=== PATIENT | male | born 1980 | race Caucasian/White ===

== ENCOUNTER 2018-03-16 21:34 | Emergency (ER) | payer MEDICAID, SELFPAY ==
[2018-03-16 21:42] VITALS: BP 139/95; PULSE 85; RESP 20; TEMP 36.5; O2SAT 98
[2018-03-16] MEDS: Tetracaine 0.5% 4 ML BTL OP (21:47)
--- NOTE | 2018-03-16 21:50 | ED.GENADUL ---
Disposition Clinical Impression: UV keratitis Disposition: HOME Condition: Stable Instructions: Corneal Flash Gregorio (ED) Additional Instructions: if pain continues next week see your primary care provider you can take tylenol as needed for pain, follow dosing instructions on packaging Medical Decision Making - Medical Decision Making pt here with hx and physical exam findings consistent with uv keratitis. NO findings on exam to suggest orbital cellulitis and pain is bilateral and had immediate relief of pain with tetracaine so doubt entities such as glaucoma and tonopen reading is 10 in each eye. Will d/c home and return precautions given. HIs eye vision in each eye on my exam is 20/40 - Differential Diagnosis uv keratitis, conjunctivitis History of Present Illness - General Chief complaint: EyeProblem Stated complaint: EYE INJURY Time Seen by Provider: 03/16/18 21:43 Source: patient Mode of arrival: ambulatory Limitations: no limitations - History of Present Illness Initial comments: 37 yo male comes in with bilateral eye pain. 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 Has mild erythema and edema around the eyes and has tearing and discomfort. EOMI, PERRL, and has immediate relief of pain with tetracaine Complaint: bilateral eye pain Onset/Timin -: hour(s) Location: eyes Radiation: non-radiation Severity scale (1-10): 10 Quality: burning Consistency: constant Improves with: none Worsens with: none Associated Symptoms: nausea/vomiting Treatments Prior to Arrival: none - Related Data Methylphenidate [Ritalin] 20 mg PO BID 05/08/14 Ibuprofen 600 mg PO QID PRN #20 tablet 03/12/18 Allergies Allergy/AdvReac Type Severity Reaction Status Date / Time codeine Allergy Severe tongue Unverified 03/16/18 21:44 swelling ibuprofen AdvReac Mild stomach Unverified 03/16/18 21:44 upset paroxetine HCl [From Paxil] AdvReac Mild works Unverified 03/16/18 21:44 like viagra Review of Systems Constitutional: denies: fever Eyes: eye pain. denies: eye discharge Respiratory: denies: shortness of breath Cardiovascular: denies: chest pain Skin: denies: rash Neurological: denies: headache Hematological/Lymphatic: denies: easy bleeding Comment: All other systems reviewed and negative Past Medical History - Past Medical History Medical history: seizures ADHD, back pain Surgical history: other (Shoulder surgery) - Social History Alcohol use: occasionally Drug use: marijuana General Exam - General Limitations: no limitations General appearance: alert, in no apparent distress - Head Head exam: Present: atraumatic - Eye Eye exam: Present: PERRL, EOMI, other (see hpi) Pupils: Present: normal accommodation - ENT ENT exam: Present: mucous membranes moist - Neck Neck exam: Present: normal inspection - Respiratory Respiratory exam: Absent: respiratory distress - Cardiovascular Cardiovascular Exam: Present: regular rate - Extremities Exam Extremities exam: Present: normal inspection - Neurological Exam Neurological exam: Present: alert, oriented X3 - Psychiatric Psychiatric exam: Present: anxious - Skin Skin exam: Present: warm Course Vital Signs - 24 hr //18 21:42 Temperature 97.7 F Pulse 85 Respiratory 20 Rate Blood Pressure 139/95 Pulse Oximetry 98
[2018-03-17 06:34] VITALS: BP 139/95; PULSE 85; RESP 20; TEMP 36.5; O2SAT 98
== END 2018-03-16 22:24 | disposition home or self-care (01) ==
LOC: ER 06-24 18:17
PROVIDERS: Emergency Provider Emergency Medicine; PCP Family Medicine
DX: H16.8 Other keratitis (principal)
CPT/HCPCS: 99283

== ENCOUNTER 2018-06-24 17:57 | Emergency (ER) | payer MEDICAID, SELFPAY ==
[2018-06-24] VITALS (12 sets, daily range): BP systolic 122–132; BP diastolic 82–88; PULSE 71–88; RESP 13–25; TEMP 36.7; O2SAT 93–97
--- NOTE | 2018-06-24 18:10 | DI.CT_ITS ---
SYMPTOM/DIAGNOSIS: SYNCOPE CT BRAIN: Noncontrast examination was performed. Comparison 02/18/17 There is a normal cárdenas/white matter differentiation. The ventricles are intact. The basilar cisterns are patent. No acute infarct, hemorrhage, midline shift or mass effect is identified. There is mucosal thickening seen in the maxillary sinuses. Ethmoid air cells and sphenoid sinuses bilaterally. The mastoid air cells are well pneumatized. The calvarium is intact. IMPRESSION: No acute intracranial process
--- NOTE | 2018-06-24 18:10 | DI.CT_ITS ---
SYMPTOM/DIAGNOSIS: COUGH, CP, VOMITING, SYNCOPE CTA CHEST, ABDOMEN AND PELVIS: CT angiography was performed with multi slice acquisition and multi planar and 3D reconstruction. Routine examination was performed. CTA CHEST: CT angiography was performed with multi slice acquisition and multi planar and 3D reconstruction. There is no evidence of a pulmonary embolus. The thoracic aorta is of normal caliber. No evidence of dissection or aneurysm. Heart size is within normal limits. No significant pericardial effusion is seen. No findings to suggest right ventricular dysfunction are present. There are enlarged mediastinal and hilar lymph nodes. These are nonspecific. The largest lymph node is seen in the subcarinal region and measures 1.7 cm in diameter. No pleural effusion or pneumothorax is identified. There is bilateral basilar atelectasis present. There also appears to be an infiltrate in the right lower lobe. IMPRESSION: 1. No evidence of a pulmonary embolus, thoracic aortic aneurysm or dissection. 2. Right lower lobe infiltrate. This may represent pneumonia or atelectasis 3. Mediastinal adenopathy CTA ABDOMEN AND PELVIS: CT angiography was performed with multi slice acquisition and multi planar and 3D reconstruction. The liver, spleen, pancreas, gallbladder, bile ducts, adrenal glands, kidneys, ureters and bladder are all unremarkable. The reproductive organs are grossly unremarkable. The bowel shows no evidence of obstruction or inflammation. There is a normal appendix present. There is no significant abdominal or pelvic adenopathy, ascites or pneumoperitoneum. The abdominal aorta is intact without evidence of aneurysm or dissection. The celiac axis, mesenteric arteries and renal arteries are all unremarkable. The bones area intact. IMPRESSION: Unremarkable abdominal and pelvic CT angiography.
--- NOTE | 2018-06-24 18:10 | W.ED.GENAD ---
Discharge Plan Disposition Patient Disposition: HOME Condition: Good Discharge Details Chief Complaint: Nausea/Vomit/Diar Clinical Impression: Cough, Pneumonia, Dehydration, Post-tussive syncope Primary Care Provider: APOLINAR BOLAND ED Provider: Miguel Angel Lew Home Meds and New Rx's Prescriptions: New azithromycin 250 mg tablet 250 mg PO DAILY 4 Days Qty: 4 RF: 0 prednisone 50 MG tablet 50 mg PO DAILY Qty: 5 RF: 0 albuterol sulfate 90 mcg/actuation HFA aerosol inhaler 1 puff IH Q6H PRN (Reason: bronchospasm) Qty: 8 RF: 0 No Action methylphenidate HCl [Ritalin] 20 MG tablet 20 mg PO BID RF: 0 ibuprofen 600 MG tablet 600 mg PO QID PRN (Reason: Pain) Qty: 20 RF: 0 Discharge Instructions Instructions: Dehydration (ED), Pneumonia (ED) Additional Instructions: Please drink 8-10 cups of water per day. Please take the antibiotic as directed. Please take the steroid and the inhaler as directed. If you notice any worsening of your symptoms, or any new symptoms such as vomiting, diarrhea, fever, chills, shortness of breath, chest pain, numbness, weakness, or fainting , please return immediately to the emergency department for reevaluation. Please follow up with your primary care provider as soon as possible for reassessment and reevaluation. As always, it was a pleasure participating in your medical care today. Stand Alone Forms: Work Release Referrals: APOLINAR BOLAND [Primary Care Provider] - Medical Decision Making This is a 38-year-old male who looks older than his stated age who presents today for evaluation of syncope, cough vomiting. Cough is been going on for a month and a half, with no hemoptysis. No PE red flags. His vomiting is been going on for the last 2 days, with mild epigastric pain, no hematemesis. Physical exam demonstrates epigastric pain, no pain at McBurney's point, negative Andrea sign. He also complains of syncope which occurred 20 minutes ago during a coughing episode. He does admit to mild chest pressure, but denies any actual chest pain, arm pain or neck pain. He denies any exertional chest pain. 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 Physical exam demonstrates 5 out of 5 strength of the lower extremities, +2 patellar reflexes normal sensation normal neurologic exam, no signs of saddle anesthesia. Lung exam demonstrates some crackles as well as a wheeze, in conjunction with his history of smoking and tobacco use and concern for potential component of reactive airway versus pneumonia. The patient's neurologic exam is normal with no focal neurologic deficits. We will get a CT scan of the head, chest CT and abdominal CT to evaluate for any potential malignancy, mass, pneumonia, or acute abdominal pathology. We will perform a cardiac workup, although I feel this is unlikely as the patient has no history of hypertension, diabetes, high cholesterol, is 38 years old, and demonstrates very reassuring vital signs. Rate 83, intervals normal, sinus rhythm, no ST elevations or depressions, no T wave inversions except for in lead III, no Q waves. No epsilon wave, delta wave, or signs of prolonged QT syndrome. EKG 21: 08 Rate 75, intervals normal, sinus rhythm, no ST elevations or depressions, no T wave inversions except for lead III which is consistent with prior EKGs. No Q waves. No hyper acute T wave changes. No evidence of epsilon wave, delta wave, or other significant abnormality. 7:[address] scan demonstrates evidence of right-sided pneumonia/pneumonitis/alveolitis. With the patient's symptoms of cough with productivity and no signs of eosinophilia on laboratory workup I do feel that there might be an infectious etiology as the cause of his symptoms. He denies any history of talc exposure, coal mining, or significant toxic inhalants. We will start the patient on azithromycin. The remainder of the patient's laboratory workup is benign, no significant electrolyte abnormalities, renal function abnormalities or other acute processes. Lipase is normal. Troponin is normal. We will get serial troponins and a repeat EKG at 3 hours. The patient's vital signs continue to remain stable. After he received his breathing treatment of DuoNeb the patient had notable improvement of his symptoms and his cough. I feel that the patient would benefit from home albuterol as well as steroids as well. I do feel that there is a reactive airway component with his chronic tobacco and marijuana use. I did reassess the patient, and again discussed the symptoms of his initial syncope, and he states that it all occurred after he had a significant coughing episode and with his negative CT of his head, no other acute processes on his CT imaging, normal EKG and benign laboratory workup I feel his syncope was most likely secondary to a posttussive syncope rather than another concerning etiology 9:34 PM Patient continues to feel very well. He states that he would like to go home now. He states that he feels back at his baseline. Repeat lung exam demonstrates absence of wheeze, and improved breath sounds. He has been given his first dose of azithromycin here. Repeat troponin, and EKGs have returned benign. With normal vital signs, reassuring clinical picture, benign laboratory workup, negative imaging, I feel that he can be safely discharged home with close follow-up with his PCP, continued hydration. We discussed red flags which to return. Diagnosis pneumonia, posttussive syncope, dehydration. I have extensively reviewed the treatment plan and discharge instructions with the patient and their family. I have addressed all patient concerns at this time. The patient and family was made aware of what symptoms to monitor for that would warrant a return to the emergency department. Discussed the plan with the patient and family, they demonstrate verbal understanding and agreement with our assessment and plan at this time. FINDINGS: No. Aorta unremarkable. Mild basilar atelectasis. Additional probably s or pneumonitis at the right lung base new from the prior exam. No pleural effusions. Minimal mediastinal adenopathy with no significantly enlarged nodes. IMPRESSION: Right lower lobe pneumonitis or alveolitis. FINDINGS: Abdominal aorta and iliac vessels unremarkable. Appendix is normal. No focal inflammatory process. No free fluid. No evidence of bowel obstruction. Bony structures unremarkable for age. IMPRESSION: Relatively unremarkable exam with no specific etiology identified for the patient's symptoms. Findings: No evidence of hemorrhage. No mass effect. No acute intracranial abnormality. Mild chronic maxillary and ethmoidal sinus disease. No air-fluid levels. Impression: No evidence of acute intracranial process. HPI General Date/Time Provider Initiated Documentation: 06/24/18 17:57. HPI Narrative: This is a 38-year-old male who denies any significant past medical history who presents today for evaluation of multiple symptoms. Patient states that he has had a cough for the last 1-1/2 months, with productive white sputum. He has associated pain with his cough, as well as the sensation of some heaviness on his chest when he coughs. Patient also states that for the last 2 days he has been vomiting, he denies any bilious vomiting or hematemesis. He admits to generalized epigastric pain, he denies any significant regular alcohol intake, he denies any aggravating or relieving components to his epigastric pain and vomiting. He denies any previous symptoms like this. He denies any previous abdominal surgeries. Patient also states that he passed out 20 minutes ago. He states that he was having coughing episode, during which time his legs felt weak, sat down and syncopized. He denies hitting his head. He is not on blood thinners. He states that he does have a history of seizures long ago, and is very clear that this was not a seizure, because it does not have any other symptoms of my seizures. He denies any tonic-clonic movements or any of his classic auras that occur when he has a seizures. Patient denies any recent episodes of syncope aside for this. Patient also admits to chronic weakness and inability to move over the last month, however at the same time he states that he has been actively doing his normal job of [employer] over the last 3 weeks, including this most recent week within the last 48 hours. Patient denies any history of exertional syncope, or any family history of sudden . He denies any systemic symptoms of fever, or chills. Patient denies any exertional chest pain when he was [employer]. Patient denies any pertinent family history. He denies any other complaints at this time. Patient does admit to regular tobacco marijuana use, but denies any IV, illicit drug use, cocaine use. Related Data Home Medications Medication Instructions Recorded Confirmed methylphenidate HCl [Ritalin] 20 mg PO BID 05/08/14 03/16/18 ibuprofen 600 mg PO QID PRN #20 tablet 03/12/18 03/16/18 albuterol sulfate 1 puff IH Q6H PRN #8 gm 06/24/18 azithromycin 250 mg PO DAILY 4 Days #4 tab 06/24/18 prednisone 50 mg PO DAILY #5 tab 06/24/18 Previous Rx's Medication Instructions Recorded ibuprofen 600 mg PO QID PRN #20 tablet 03/12/18 albuterol sulfate 1 puff IH Q6H PRN #8 gm 06/24/18 azithromycin 250 mg PO DAILY 4 Days #4 tab 11/11/18 prednisone 50 mg PO DAILY #5 tab 06/24/18 Allergies Allergy/AdvReac Type Severity Reaction Status Date / Time codeine Allergy Severe tongue Unverified 03/16/18 21:44 swelling ibuprofen AdvReac Mild stomach Unverified 03/16/18 21:44 upset paroxetine HCl [From Paxil] AdvReac Mild works Unverified 03/16/18 21:44 like viagra General Stated Complaint: Nausea/Vomit/Diar VALENTINO: 3 Review of Systems Review of Systems All systems reviewed & are unremarkable except as noted in HPI and below PFSH Social History Smoking/Tobacco Use Status: Current every day Exam Narrative Exam Narrative: 1.Const: Well-nourished, Well-developed, appearing stated age 2.Eyes: PERRL, no conjunctival injection, and symmetrical lids. 3.ENT: Atraumatic external nose and ears. Moist MM. Neck: Symmetric, trachea midline, No thyromegaly. Patient demonstrates good movement of cervical neck. There is no nuchal rigidity, no nuchal tenderness. Patient is able to flex the neck without any difficulty or significant pain. Negative Kernig's and Brudzinski sign. 4.CVS: +S1/S2, No murmurs or gallops. Peripheral pulses 2+ and equal in all extremities. Brisk capillary refill in all extremities. 5.RESP: Patient demonstrates crackles throughout, minimal wheezes. No rhonchi. 6.GI: Soft, no guarding or rebound, no distention. Mild tenderness in the upper epigastric region. No pain at McBurney's point, negative Andrea sign 7.MSK: Normocephalic/Atraumatic, Extremities w/o deformity or ttp No cyanosis or clubbing, Normal movement of all extremities. 5 out of 5 strength for the upper extremities. All 6 cardinal planes of vision are fully intact. No evidence of rotatory or vertical nystagmus. The patient demonstrated a normal [id number], good dexterity. There was no evidence of dysdiadochokinesia. Patient was able to ambulate without difficulty. There was no wide-based gait. Romberg, and [id number]-[id number] are both normal on testing. Sensation was intact bilaterally as well as muscle strength bilaterally for all extremities. Patient was able to verbalize butter cup with no slurring, or miss pronunciation. No midline tenderness to palpation over the CTLS spine. Normal ROM in flexion, extension, side bend, and rotation. Patient has +5 out of 5 strength in the lower extremities in dorsiflexion and plantarflexion, knee flexion and extension, hip flexion and extension. There is +2 over 2 dorsalis pedis pulses bilaterally. There is normal sensation to the skin with light touch at the foot, knee, and hip. Normal saddle sensation. Good sensation over the deep sural nerve area bilaterally. Rectal exam deferred. Reflexes are +2 over 4 in the patellar reflex bilaterally. +5 out of 5 strength in the medial, ulnar, radial nerve distribution bilaterally in the hands as well as intact light touch sensation to these dermatomes on the hands 8.Skin: Warm, Dry. No rashes or lesions. 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 Sensation grossly intact, no focal neurologic deficits. Please see musculoskeletal section 10.Psych: (AAO) x3. Appropriate mood and affect Course Vital Signs Temperature 36.7 C 06/24/18 17:59 Pulse 74 06/24/18 17:59 Respiratory Rate 22 06/24/18 17:59 Blood Pressure 132/88 06/24/18 17:59 Temperature 36.7 C 06/24/18 17:59 Temperature Source Skin 06/24/18 17:59 Pulse 74 06/24/18 17:59 Respiratory Rate 22 06/24/18 17:59 Blood Pressure 132/88 06/24/18 17:59 Blood Pressure Position Supine 06/24/18 17:59 Oxygen Delivery Method Room Air 06/24/18 17:59 Oxygen Flow Rate 0 06/24/18 17:59
[2018-06-24] MEDS: Normal Saline 1,000 ML 1000 ML IV (18:18)
[2018-06-24] MEDS: Ondansetron 4 MG/2 ML VIAL IVP (18:24)
[2018-06-24 18:36] LABS: ALT 29 U/L (12-78); AST 20 U/L (15-37); Albumin 3.4 g/dL (3.4-5.0); Alkaline Phosphatase 56 U/L (46-116); Anion Gap 10.8 mmol/L (3-11); BUN 15 mg/dL (7-18); Bilirubin, Total 0.5 mg/dL (0.2-1.0); CO2 25.2 mmol/L (21.0-32.0); CREATININE 0.94 mg/dL (0.70-1.30); Chloride 103 mmol/L (98-107); Glucose 88 mg/dL (70-100); Lipase 139 U/L (73-393); Potassium 3.6 mmol/L (3.5-5.1); Sodium 139 mmol/L (136-145); Total Protein 6.7 g/dL (6.4-8.2)
[2018-06-24 18:37] LABS: Abs Immature Grans 0.05 k/cumm (0.0-0.09); Absolute Basophil Count 0.02 k/cumm (0.0-0.2); Absolute Eosinophil Count 0.17 k/cumm (0.0-0.7); Absolute Lymphocyte Count 2.97 k/cumm (1.2-3.4); Absolute Monocyte Count 0.75 k/cumm (0.11-0.7); Absolute Neutrophil Count 5.28 k/cumm (1.2-6.7); Basophils % 0.2; Eosinophils % 1.8; HGB 15.1 g/dL (13.5-17.5); Immature Grans % 0.5; Lymphocytes % 32.1; Mean Corp. HGB Concentration 35.1 g/dL (32.0-36.0); Mean Corpuscular Hemoglobin 31.5 pg (27.0-33.0); Mean Corpuscular Volume 89.8 fL (80-95); Mean Platelet Volume 8.7 fL (8.0-11.0); Monocytes % 8.1; Neutrophils % 57.3; Platelet Count 286 x1000/uL (130-400); RBC 4.79 m/cumm (4.50-6.00); RBC Distribution Width 13.4 % (11.8-14.1); Troponin I < 0.02 ng/mL (0.00-0.06); White Blood Cell Count 9.24 k/cumm (4.4-10.8)
[2018-06-24] MEDS: Omnipaque 350 MG/ML 100 ML BTL IJ (18:40)
--- NOTE | 2018-06-24 18:49 | DI.VRAD_ITS ---
EXAM: CT Head Without Intravenous Contrast EXAM DATE/TIME: 06/24/2018 6:14 PM CLINICAL HISTORY: 38 years old, male; Pain; Other: Syncope TECHNIQUE: Axial computed tomography images of the head/brain without intravenous contrast. Coronal and sagittal reformatted images were created and reviewed. COMPARISON: CT HEAD WITHOUT CONTRAST 02/18/2017 1:40 PM FINDINGS: No evidence of hemorrhage. No mass effect. No acute intracranial abnormality. Mild chronic maxillary and ethmoidal sinus disease. No air-fluid levels. IMPRESSION: No evidence of acute intracranial process. Dictated and Authenticated by: Mick Del Rio MD. Ordering:SHAHRZAD CHRISTIANSON MD
[2018-06-24] MEDS: methylPREDNISolone SUCC 125 MG VIAL IVP (19:02)
[2018-06-24] MEDS: Albuterol/Ipratropium 3 ML UPD VIAL UPD ×2 (19:02→19:21)
--- NOTE | 2018-06-24 19:16 | DI.VRAD_ITS ---
EXAM: CT Angiography Chest With Intravenous Contrast EXAM DATE/TIME: 06/24/2018 6:14 PM CLINICAL HISTORY: 38 years old, male; Pain; Other: Cough cp vomiting syncope TECHNIQUE: Axial computed tomographic angiography images of the chest with intravenous contrast using CT angiography protocol. MIP reconstructed images were created and reviewed. CONTRAST: 100 ml of omni 350 administered intravenously. COMPARISON: CT CHEST FOR PULMONARY EMBOLUS 01/13/2017 8:01 PM FINDINGS: No. Aorta unremarkable. Mild basilar atelectasis. Additional probably s or pneumonitis at the right lung base new from the prior exam. No pleural effusions. Minimal mediastinal adenopathy with no significantly enlarged nodes. IMPRESSION: Right lower lobe pneumonitis or alveolitis. EXAM: CT Angiography Abdomen and Pelvis With Intravenous Contrast EXAM DATE/TIME: 06/24/2018 6:14 PM CLINICAL HISTORY: 38 years old, male; Pain; Other: Cough cp vomiting syncope TECHNIQUE: Axial computed tomographic angiography images of the abdomen and pelvis with intravenous contrast material, including non-contrast images if performed. MIP and/or 3D reconstructed images were created and reviewed. MIP reconstructed images were created and reviewed. CONTRAST: 100 ml of OMNI 350 administered intravenously. COMPARISON: CT CHEST FOR PULMONARY EMBOLUS 01/13/2017 8:01 PM FINDINGS: Abdominal aorta and iliac vessels unremarkable. Appendix is normal. No focal inflammatory process. No free fluid. No evidence of bowel obstruction. Bony structures unremarkable for age. IMPRESSION: Relatively unremarkable exam with no specific etiology identified for the patient's symptoms. Dictated and Authenticated by: Mick Del Rio MD. Ordering:SHAHRZAD CHRISTIANSON MD
[2018-06-24] MEDS: Azithromycin 250 MG TAB 500 MG PO (19:48)
[2018-06-24 21:34] LABS: Troponin I < 0.02 ng/mL (0.00-0.06)
== END 2018-06-24 21:42 | disposition home or self-care (01) ==
PROVIDERS: Emergency Provider Student in an Organized Health Care Education/Training Program; PCP Family Medicine
DX: R05 Cough (principal); J18.9 Pneumonia, unspecified organism; E86.0 Dehydration; R11.2 Nausea with vomiting, unspecified
CPT/HCPCS: 36415; 74177; 80053; 83690; 93005; 94640; 96361; 96374; 96375; 99285; 70450; 84484; 85025; 93010; J2405; J2930; J3490; J7620

== ENCOUNTER 2018-06-28 10:03 | Emergency (ER) | payer MEDICAID, SELFPAY ==
[2018-06-28] VITALS (27 sets, daily range): BP systolic 109–137; BP diastolic 73–93; PULSE 58–90; RESP 3–27; TEMP 36.3; O2SAT 93–100
--- NOTE | 2018-06-28 10:29 | DI.CT_ITS ---
SYMPTOMS/DIAGNOSIS: SEVERE EPIGASTRIC PAIN, RECENT SCAN FOR COUGH, NOW HEMOPTYSIS CT ANGIOGRAPHY CHEST: CT angiography was performed with multi slice acquisition and multi planar and 3D reconstruction. CT Angiography of the chest was performed with a bolus infusion of 75 cc's of Omnipaque 350. The examination is compared with recent CTA of 06/24/18. The previous exam showed no evidence of pulmonary embolic disease but did show areas of peripheral right lower lobe consolidation. The areas of consolidation are slightly less prominent on the current examination. No new gross consolidation identified in either lung. The tracheobronchial tree appears intact. No mediastinal or hilar adenopathy. CONCLUSION: No evidence of pulmonary embolic disease. Mild interval improvement in right lower lobe presumed pneumonitis. ABDOMINAL AND PELVIC CT: CT examination of the abdomen and pelvis was performed with intravenous infusion of 80 cc's of Omnipaque 350 and ingestion of oral contrast medium following the CT Angiogram of the chest also obtained today. The abdominal aorta is of normal diameter. No major vascular abnormality seen. The liver and spleen appear normal. The gallbladder and bile ducts are CT normal as is the pancreas. The adrenals and kidneys appear normal. No evidence of urinary tract calcification or obstruction. Small fat containing bilateral inguinal hernias noted. No other significant abdominal wall hernia seen. No abdominal or pelvic adenopathy. Normal appearance of the appendix. No evidence of bowel obstruction or diverticulitis. CONCLUSION: No evidence of acute intra-abdominal process.
[2018-06-28] MEDS: Ondansetron 4 MG/2 ML VIAL IVP (10:45)
[2018-06-28 10:54] LABS: Abs Immature Grans 0.16 k/cumm (0.0-0.09); Absolute Basophil Count 0.04 k/cumm (0.0-0.2); Absolute Eosinophil Count 0.35 k/cumm (0.0-0.7); Absolute Monocyte Count 0.76 k/cumm (0.11-0.7); BE (Venous) 1.3 mmol/L (-3-3); Basophils % 0.4; Eosinophils % 3.1; HCO3 (Venous) 25 mmol/L (22-28); HCT 43.2 % (40.0-50.0); HGB 15.1 g/dL (13.5-17.5); Immature Grans % 1.4; Lymphocytes % 29.8; Mean Corpuscular Hemoglobin 31.5 pg (27.0-33.0); Mean Corpuscular Volume 90.2 fL (80-95); Mean Platelet Volume 8.6 fL (8.0-11.0); Monocytes % 6.8; Neutrophils % 58.5; O2 Sat (Venous) 98 % (70-80); Platelet Count 297 x1000/uL (130-400); RBC 4.79 m/cumm (4.50-6.00); RBC Distribution Width 13.4 % (11.8-14.1); TCO2 (Venous) 22 mmol/L (22-29); White Blood Cell Count 11.19 k/cumm (4.4-10.8); pCO2 (Venous) 35 mm/Hg (34-47); pH (Venous) 7.46 (7.32-7.43); pO2 (Venous) 122 mm/Hg (28-44)
[2018-06-28] MEDS: Normal Saline 1,000 ML 1000 ML IV (10:54)
--- NOTE | 2018-06-28 10:54 | W.ED.GENAD ---
Discharge Plan Disposition Patient Disposition: HOME Condition: Good Discharge Details Chief Complaint: RespSymp Clinical Impression: Cough with hemoptysis Primary Care Provider: APOLINAR BOLAND ED Provider: Miguel Angel Lew Home Meds and New Rx's Prescriptions: New ipratropium-albuterol 0.5 mg-3 mg(2.5 mg base)/3 mL solution for nebulization 3 ml IH Q6H Qty: 90 RF: 0 No Action methylphenidate HCl [Ritalin] 20 MG tablet 20 mg PO BID RF: 0 prednisone 50 MG tablet 50 mg PO DAILY Qty: 5 RF: 0 albuterol sulfate 90 mcg/actuation HFA aerosol inhaler 1 puff IH Q6H PRN (Reason: bronchospasm) Qty: 8 RF: 0 ibuprofen 600 MG tablet 600 mg PO QID PRN (Reason: Pain) Qty: 20 RF: 0 Discharge Instructions Instructions: Hemoptysis (ED) Additional Instructions: Please finish your azithromycin and prednisone. Please use your nebulizer every 6 hours as needed. 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 If you notice any worsening of your symptoms, or any new symptoms such as vomiting, diarrhea, fever, chills, shortness of breath, chest pain, numbness, weakness, or fainting , please return immediately to the emergency department for reevaluation. Please follow up with your primary care provider as soon as possible for reassessment and reevaluation. As always, it was a pleasure participating in your medical care today. Referrals: APOLINAR BOLAND [Primary Care Provider] - Medical Decision Making This is a 38-year-old male with past medical history of tobacco abuse who presents today for evaluation of worsening cough with no hemoptysis, as well as continued and worsening epigastric pain with vomiting. He denies any hematemesis, bilious emesis, or other abnormality. His pain is epigastric and location, but he denies any alcohol consumption, significant bloody diarrhea, or other abnormality. Patient was seen and assessed here 4 days ago, with symptoms of cough for 1 month but no hemoptysis at that time. At that time a CT angiogram of the chest abdomen and pelvis was performed with evidence of mild pneumonitis on the right, but no other significant abnormalities including of the abdomen and pelvis. He was given steroids and azithromycin discharged home after serial troponins and EKGs and the notable improvement in his clinical symptoms. Patient went to work for the first time yesterday, felt that he could not work and states that he was fired. He also states that yesterday he had one large episode of hemoptysis, but none since then. States that he feels no better, has continued vomiting, as well as cough. He is taking all the medication as directed. Physical exam demonstrates a relatively well-appearing male, with no significant physical exam abnormalities except for mild abdominal tenderness. Lung sounds are clear, patient's oxygen is slightly decreased at 93%, but has no significant tachypnea. Lung sounds demonstrate no significant wheezes rales or rhonchi. Patient's clinical scenario certainly atypical. With a benign workup before I feel that there is a low likelihood for a new acute process. I do wonder if his hemoptysis is secondary to his prolonged cough, and a bronchitis component. However the patient is adamant that he needs answers and would like repeat imaging. We will get a repeat CT scan to evaluate for any worsening intrapulmonary process, as well as epigastric process. We will rehydrate, give nebulized lidocaine for his cough, as well as a repeat breathing treatment. I feel that if the remainder of his workup is relatively benign he can be safely discharged home with follow-up with pulmonology on an outpatient basis. EKG 1108 Rate 64, intervals normal, sinus rhythm, no ST elevations or depressions, no T wave inversions, no Q waves. Normal EKG 2 PM Patient's laboratory workup has returned benign. CT scan of the chest abdomen and pelvis has been reviewed by the radiologist, and Dr. Redd states that there is no acute process, the pneumonia is improving, no evidence of PE, or acute abdominal pathology. On reassessment the patient is feeling much better after his breathing treatment. With the notable improvement of his pneumonia on CT scan, a benign workup, the patient feeling much better I feel he can be discharged. I feel he has expanded our capabilities here and that he would definitely benefit from outpatient pulmonology follow-up for his hemoptysis. He has had no repeat episodes of hemoptysis here in the ER, I feel it may be from a bronchitis and coughing issue, however I do feel that he would benefit from prompt follow-up. We will put in a referral for a local pulmonology follow-up. We discussed red flags for which to return and the patient understands. Vital signs are normal, patient appears clinically better and states that he is ready to go home. I have extensively reviewed the treatment plan and discharge instructions with the patient and their family. I have addressed all patient concerns at this time. The patient and family was made aware of what symptoms to monitor for that would warrant a return to the emergency department. Discussed the plan with the patient and family, they demonstrate verbal understanding and agreement with our assessment and plan at this time. HPI General Date/Time Provider Initiated Documentation: 06/28/18 10:16. HPI Narrative: This is a 38-year-old male who presents for evaluation of cough and vomiting. Patient states that he has had these symptoms for the last month. He was just here 4 days ago, at that time he had some chest pressure, shortness of breath, and cough with vomiting for 2 days. No hemoptysis at that time. CT angiogram was performed of the chest abdomen and pelvis, no significant abnormalities were noted. He did have evidence of pneumonitis versus pneumonia on the right side of his chest, he had notable improvement with breathing treatment, steroids. He was able to tolerate p.o. and then was discharged home. Patient states that he is taking his antibiotic and steroids with no improvement. He has been taking the inhaler and this is also not improved his symptoms. Now he states that he has coughed up a large clot of blood. States that it is about the size of something that you would get from a large nosebleed. He denies any streaking in his sputum, or any other episodes since that initial event last night. He also admits to associated vomiting, and states that I have not eaten anything since yesterday.He admits to mild to moderate epigastric pain. Symptoms are similar to when he was here previously. Patient also did state that he did not work after he was initially discharged because of the work note, yesterday was his first day back he found that he could not work, and feels like he might of been fired from his job. Patient denies any other change in symptoms or any other associated symptoms. Both last time in this time the patient denies any red flags for pulmonary embolism aside for his hemoptysis which appears to be new. Patient denies any alcohol use, recent abdominal surgeries, or any other complaints. He denies any profuse watery diarrhea, bloody diarrhea, or other abnormalities. He does have a history of notable tobacco abuse. Of note the patient did have serial troponins and EKGs on his last visit which were all negative. Related Data Home Medications Medication Instructions Recorded Confirmed methylphenidate HCl [Ritalin] 20 mg PO BID 05/08/14 06/28/18 ibuprofen 600 mg PO QID PRN #20 tablet 03/12/18 06/28/18 albuterol sulfate 1 puff IH Q6H PRN #8 gm 06/24/18 06/28/18 prednisone 50 mg PO DAILY #5 tab 06/24/18 06/28/18 ipratropium-albuterol 3 ml IH Q6H #90 ml 06/28/18 Previous Rx's Medication Instructions Recorded ibuprofen 600 mg PO QID PRN #20 tablet 03/12/18 albuterol sulfate 1 puff IH Q6H PRN #8 gm 06/24/18 prednisone 50 mg PO DAILY #5 tab 06/24/18 ipratropium-albuterol 3 ml IH Q6H #90 ml 06/28/18 Allergies Allergy/AdvReac Type Severity Reaction Status Date / Time codeine Allergy Severe tongue Unverified 06/28/18 10:09 swelling ibuprofen AdvReac Mild stomach Unverified 06/28/18 10:09 upset paroxetine HCl [From Paxil] AdvReac Mild works Unverified 06/28/18 10:09 like viagra General Stated Complaint: RespSymp VALENTINO: 3 Review of Systems Review of Systems All systems reviewed & are unremarkable except as noted in HPI and below PFSH Social History Smoking/Tobacco Use Status: Current every day Exam Narrative Exam Narrative: 1.Const: Well-nourished, Well-developed, appearing stated age 2.Eyes: PERRL, no conjunctival injection, and symmetrical lids. 3.ENT: Atraumatic external nose and ears. Moist MM. Neck: Symmetric, trachea midline, No thyromegaly. 4.CVS: +S1/S2, No murmurs or gallops. Peripheral pulses 2+ and equal in all extremities. Brisk capillary refill in all extremities. 5.RESP: Unlabored respiratory effort. Clear to auscultation bilaterally. No wheezes rales or rhonchi. This is an improvement from when he was here before when her mild crackles and rhonchi noted at that time with an associated wheeze 6.GI: Soft, Nondistended, No hepatosplenomegaly. No guarding or rebound. Mild pain in the epigastric region on palpation. No pulsatile abdominal mass. No pain at McBurney's point, negative Andrea sign. No flank tenderness, negative obturator and psoas sign. 7.MSK: Normocephalic/Atraumatic, Extremities w/o deformity or ttp No cyanosis or clubbing, Normal movement of all extremities 8.Skin: Warm, Dry. No rashes or lesions. 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 Sensation grossly intact, no focal neurologic deficits. 10.Psych: (AAO) x3. Appropriate mood and affect Course Vital Signs Temperature 36.3 C L 06/28/18 10:07 Pulse 76 06/28/18 10:07 Respiratory Rate 14 06/28/18 10:07 Blood Pressure 127/73 06/28/18 10:07 Pulse Oximetry 93 L 06/28/18 10:07 Temperature 36.3 C L 06/28/18 10:07 Temperature Source Temporal Artery Scan 06/28/18 10:07 Pulse 76 06/28/18 10:07 Respiratory Rate 14 06/28/18 10:07 Respiratory Effort Non-Labored 06/28/18 10:08 Blood Pressure 127/73 06/28/18 10:07 Pulse Oximetry 93 L 06/28/18 10:07 Oxygen Delivery Method Room Air 06/28/18 10:07 Oxygen Flow Rate 0 06/28/18 10:07 Pain Level 10 06/28/18 10:07
[2018-06-28 10:59] LABS: Absolute Lymphocyte Count 3.33 k/cumm (1.2-3.4); Absolute Neutrophil Count 6.55 k/cumm (1.2-6.7)
[2018-06-28] MEDS: Albuterol/Ipratropium 3 ML UPD VIAL UPD (10:59)
[2018-06-28] MEDS: Omnipaque 350 MG/ML 50 ML BTL IJ (11:10)
[2018-06-28 11:14] LABS: ALT 28 U/L (12-78); AST 17 U/L (15-37); Albumin 3.2 g/dL (3.4-5.0); Alkaline Phosphatase 43 U/L (46-116); Anion Gap 7.9 mmol/L (3-11); BUN 19 mg/dL (7-18); Bilirubin, Total 0.6 mg/dL (0.2-1.0); CO2 26.1 mmol/L (21.0-32.0); CREATININE 0.78 mg/dL (0.70-1.30); Calcium 8.2 mg/dL (8.5-10.1); Chloride 104 mmol/L (98-107); Glucose 94 mg/dL (70-100); Lipase 152 U/L (73-393); Potassium 3.8 mmol/L (3.5-5.1); Sodium 138 mmol/L (136-145); Total Protein 6.2 g/dL (6.4-8.2)
[2018-06-28 11:15] LABS: Troponin I < 0.02 ng/mL (0.00-0.06)
[2018-06-28 11:37] LABS: Bilirubin Negative (Negative); Blood Negative (Negative); Clarity Clear; Glucose Negative (Negative); Ketones Negative (Negative); Leukocyte Esterase Negative (Negative); Nitrite Negative (Negative); Specific Gravity 1.025 (1.005-1.025); Urobilinogen 0.2 EU/dL (Up TO 0.2)
--- NOTE | 2018-06-28 12:53 | NUR.NOTE ---
Pt. to radiology.
[2018-06-28] MEDS: Omnipaque 350 MG/ML 100 ML BTL IJ (13:29)
--- NOTE | 2018-06-28 13:55 | NUR.NOTE ---
MD Lew is at the bedside.
== END 2018-06-28 14:16 | disposition home or self-care (01) ==
PROVIDERS: Emergency Provider Student in an Organized Health Care Education/Training Program; PCP Family Medicine
DX: R04.2 Hemoptysis (principal); R10.13 Epigastric pain; R11.10 Vomiting, unspecified; F17.210 Nicotine dependence, cigarettes, uncomplicated
CPT/HCPCS: 71275; 80053; 82805; 83690; 93005; 94640; 96361; 96374; 99285; 74177; 81003; 84484; 85025; 93010; J2405; J3490; J7620; Q9967

== ENCOUNTER 2018-08-01 13:37 | Emergency (ER) | payer MEDICAID, SELFPAY ==
[2018-08-01 13:42] VITALS: BP 129/83; PULSE 98; RESP 16; TEMP 36.7; O2SAT 98
--- NOTE | 2018-08-01 14:09 | DI.CT_ITS ---
SYMPTOMS/DIAGNOSIS: NASAL TRAUMA WITH SINUS PAIN FACIAL BONE CT: Mucoperiosteal thickening is noted involving the maxillary, ethmoid and frontal sinuses with subtotal opacification of the left frontal air cell. There is no evidence of a facial bone or nasal bone fracture. The maxilla, zygomata, mandible and pterygoid processes are intact. There is no evidence of an abnormality involving the temporomandibular joints. SUMMARY: Findings consistent with chronic pansinusitis. There is no evidence of a facial bone, orbital or nasal bone fracture.
--- NOTE | 2018-08-01 14:11 | W.ED.GENAD ---
Discharge Plan Disposition Patient Disposition: HOME Condition: Fair Discharge Details Chief Complaint: RespSymp Clinical Impression: Nasal trauma, Frontal sinus pain Primary Care Provider: Twan Brooks ED Provider: Yoselin Smith Home Meds and New Rx's Prescriptions: Continued methylphenidate HCl [Ritalin] 20 MG tablet 20 mg PO BID RF: 0 albuterol sulfate 90 mcg/actuation HFA aerosol inhaler 1 puff IH Q6H PRN (Reason: bronchospasm) Qty: 8 RF: 0 ipratropium-albuterol 0.5 mg-3 mg(2.5 mg base)/3 mL solution for nebulization 3 ml IH Q6H Qty: 90 RF: 0 Discharge Instructions Instructions: Head Injury (ED) Additional Instructions: Encourage hydration. Continue with Tylenol for discomfort, may take 1,000mg every 6 hours with max of 4,000mg daily. NAsal saline or Afrin may help with sinus congestion. Do not use Afrin for more than 3 days in a row. If you develop new/worsening symptoms please seek care urgently once again. Follow up with primary care in one week if not improving. Referrals: Twan Brooks [Primary Care Provider] - Discharge Data Discharge Date/Time-TO BE ENTERED AT DEPARTURE: 08/01/18 15:13 Medical Decision Making Patient is a 38 year old male, accompanied by friend, with c/c of nasal and sinus congestion. Reports that 6 days ago , while at work, he stood up into a metal bar striking the bridge of his nose. States he did have an episode of epistaxis but that this has not returned. Has abrasion to the bridge of his nose. Reports that since then he has had 10/10 pain in the nose and frontal sinuses. HAs been using Tylenol to help with discomfort. Reports Ibuprofen causes GI upset, has had Toradol in the past without side effects. No LOC at the time of the incident. No other injury reported. On exam, patient has abrasion to the bridge of his nose. No swelling or ecchymosis. Also endorsing discomfort with percussion over the frontal sinuses. Feels that sinus discomfort is associated with his nasal trauma. Denies recent URI symptoms except for nasal congestion and rhinorrhea. He feels that the congestin is associated with nasal trauma. No palpable deformity. No intranasal abnormalities noted. EOM intact. Patient will be given Toradol IM to help with discomfort. Will obtain CT to evaluate for nasal trauma and also evaluate sinuses further. Consulted with the radiologist who advised no acute fracture is noted. He does note chronic sinusitis in all sinuses. Advises no signs of acute sinusitis. Discussed findings with the patient. ADvised nasal contusion. Advised icing the area. Tylenol as needed for discomfort. Advised f/u with PCP if not improving over the next week. Discussed signs and symptoms of infection or other new/worsening symptoms and when to seek care urgently once again. All of his questions and concerns were addressed, he is in agreement with this plan. Discussed OTC medications that may help with congestion and runny nose. All of his quesitons and concerns were addressed, he is in agreement with this plan. HPI General Mode of arrival: ambulatory. Date/Time Provider Initiated Documentation: 08/01/18 14:01. Limitations to Documentation: no limitations. Information obtained by: patient and family. History of Present Illness 38 year old M presents to the emergency department with the chief complaint of nasal trauma, described as severe, with intensity rated at 10. Quality is described as sharp, and is localized to the face. Patient reports radiation to (into sinuses). Patient started experiencing this day(s) (6) and it has been constant. No relieving factors improve symptom(s), Other factors that worsen symptoms (bending forward) . Patient notes headaches (over sinuses) and rash (has abrasion to the bridge of the nose); denies confusion, cough, fever/chills and nausea/vomiting. Patient did receive the following treatments prior to arrival, other (tylenol) Related Data Home Medications Medication Instructions Recorded Confirmed methylphenidate HCl [Ritalin] 20 mg PO BID 05/08/14 08/01/18 albuterol sulfate 1 puff IH Q6H PRN #8 gm 06/24/18 08/01/18 ipratropium-albuterol 3 ml IH Q6H #90 ml 06/28/18 08/01/18 Previous Rx's Medication Instructions Recorded albuterol sulfate 1 puff IH Q6H PRN #8 gm 06/24/18 ipratropium-albuterol 3 ml IH Q6H #90 ml 06/28/18 Allergies Allergy/AdvReac Type Severity Reaction Status Date / Time codeine Allergy Severe tongue Unverified 08/01/18 13:45 swelling ibuprofen AdvReac Mild stomach Unverified 08/01/18 13:45 upset paroxetine HCl [From Paxil] AdvReac Mild works Unverified 08/01/18 13:45 like viagra General Stated Complaint: RespSymp VALENTINO: 4 Review of Systems Constitutional Reports as per HPI and Reports headache(s) (frontal sinus pain) Eyes Reports as per HPI, Denies blurry vision, Denies eye discharge and Denies irritation ENT Reports as per HPI, Denies dental pain, Denies vertigo, Denies otalgia, Reports headache(s) (frontal sinus pain), Reports epistaxis (initially after the incident, no bleeding since), Reports nasal congestion, Reports nasal discharge, Reports nasal trauma, Reports sinus pain and Reports sinus pressure Cardiovascular Reports as per HPI, Denies chest pain and Denies dyspnea Respiratory Reports as per HPI, Denies cough and Denies dyspnea Gastrointestinal Reports as per HPI, Denies abdominal pain, Denies change in bowel habits, Denies nausea and Denies vomiting Integumentary/Breasts Reports as per HPI and Reports wounds (abrasion to bridge of nose) Neurologic Denies vertigo and Reports headache(s) (frontal sinus pain) [facility] Social History Smoking/Tobacco Use Status: Current every day Exam Const General: cooperative, healthy appearing, comfortable, no acute distress, well developed and well groomed Nutritional Appearance: average body habitus and well nourished Orientation: alert and awake [facility] Head: normal to inspection, normocephalic and atraumatic Ears: hearing grossly normal bilaterally, external ears normal and TM's normal bilaterally General nose exam: external nose not normal (abrasion to bridge of nose, appears to be healing well), nares abnormal (small abrasion under right naris, he associate with cat scratch), no nasal polyps, nasal mucous membranes and turbinates normal, septum normal, no nasal discharge, no epistaxis and normal external nose (no swelling or palpable deformity) Face and sinus: normal facial exam, face symmetric and sinus tenderness frontal Mouth: oral mucosae normal, lip normal, tongue normal, oropharynx normal and moist mucous membranes Teeth and gingiva: dentition normal Throat: posterior oropharynx normal, tonsils normal and uvula midline Eyes General: appearance normal, both eyes and all related structures Pupils: PERRL EOM: EOM intact bilaterally Neck Neck: normal visual inspection, full ROM, no lymphadenopathy and no meningeal signs Resp Effort & Inspection: normal respiratory effort, able to speak in complete sentences and no respiratory distress Auscultation: clear to auscultation bilaterally, no rales, no rhonchi and no wheezes Cardio Rate: regular rate Rhythm: regular rhythm Heart Sounds: S1 normal and S2 normal Skin Trauma: abrasion (abrasions as above. No erythema, warmth, swelling, drainage) Neuro General: alert and awake Cognition: normal cognition Speech: speech normal Gait: normal gait Psych Appearance: grossly normal and well kempt Mental Status: mental status grossly normal Speech and Movement: speech and movement normal Course Vital Signs Temperature 36.7 C 08/01/18 13:42 Pulse 98 H 08/01/18 13:42 Respiratory Rate 16 08/01/18 13:42 Blood Pressure 129/83 08/01/18 13:42 Pulse Oximetry 98 08/01/18 13:42 Temperature 36.7 C 08/01/18 13:42 Temperature Source Skin 08/01/18 13:42 Pulse 98 H 08/01/18 13:42 Respiratory Rate 16 08/01/18 13:42 Respiratory Effort Non-Labored 08/01/18 13:42 Blood Pressure 129/83 08/01/18 13:42 Blood Pressure Position Sitting 08/01/18 13:42 Pulse Oximetry 98 08/01/18 13:42 Oxygen Delivery Method Room Air 08/01/18 13:42 Oxygen Flow Rate 0 08/01/18 13:42 Pain Level 10 08/01/18 13:42
[2018-08-01] MEDS: Ketorolac 30 MG/ML VIAL IM (14:49)
--- NOTE | 2018-08-01 15:11 | NUR.NOTE ---
Nursing Note:Pt states his pain is improved
== END 2018-08-01 15:13 | disposition home or self-care (01) ==
PROVIDERS: Emergency Provider Physician Assistant; PCP Family Medicine
DX: S00.31XA Abrasion of nose, initial encounter (principal); R51 Headache; W22.8XXA Striking against or struck by other objects, initial encounter; Y99.0 Civilian activity done for income or pay
CPT/HCPCS: 96372; 99284; 70486

== ENCOUNTER 2018-11-01 10:07 | Emergency (ER) | payer MEDICAID, SELFPAY ==
[2018-11-01 10:11] VITALS: BP 123/75; PULSE 65; RESP 20; TEMP 36.7; O2SAT 94
--- NOTE | 2018-11-01 10:22 | W.ED.GENAD ---
Discharge Plan Disposition Patient Disposition: HOME Condition: Stable Discharge Details Chief Complaint: EarProblem Clinical Impression: Otitis externa Primary Care Provider: Twan Brooks ED Provider: Morgan Valdivia Home Meds and New Rx's Prescriptions: New ciprofloxacin-dexamethasone 0.3-0.1 % drops,suspension 4 drp OT BID 5 Days Qty: 7.5 RF: 0 No Action methylphenidate HCl [Ritalin] 20 MG tablet 20 mg PO BID RF: 0 Discharge Instructions Instructions: Otitis Externa (ED) Medical Decision Making 38 yo male comes in with several days of bilateral ear popping and discomfort. Denies fevers or headache. Denies swimming or using q tips. Both tm's appear normal and has mild swelling of both appraiser auditor canals which could be causing his symptoms. No evidence of mastoiditis on exam. Will start him on abx drops for otitis externa and advised f/u with pcp, return precautions given Differential Diagnosis otitis externa, aom ,ear wax HPI General Mode of arrival: ambulatory. Date/Time Provider Initiated Documentation: 11/01/18 10:07. Limitations to Documentation: no limitations. Information obtained by: patient. History of Present Illness 38 year old M presents to the emergency department with the chief complaint of ear pain bilateral, described as moderate, No relieving factors improve symptom(s), No exacerbating factors reported . Patient did receive the following treatments prior to arrival, none Related Data Home Medications Medication Instructions Recorded Confirmed methylphenidate HCl [Ritalin] 20 mg PO BID 05/08/14 11/01/18 ciprofloxacin-dexamethasone 4 drp OT BID 5 Days #7.5 ml 11/01/18 Previous Rx's Medication Instructions Recorded ciprofloxacin-dexamethasone 4 drp OT BID 5 Days #7.5 ml 11/01/18 Allergies Allergy/AdvReac Type Severity Reaction Status Date / Time codeine Allergy Severe tongue Unverified 11/01/18 10:14 swelling ibuprofen AdvReac Mild stomach Unverified 11/01/18 10:14 upset paroxetine HCl [From Paxil] AdvReac Mild works Unverified 11/01/18 10:14 like viagra General Stated Complaint: EarProblem VALENTINO: 4 Review of Systems Review of Systems All systems reviewed & are unremarkable except as noted in HPI and below Constitutional Denies chills, Denies fever(s) and Denies weakness Cardiovascular Denies chest pain and Denies dyspnea Respiratory Denies dyspnea Gastrointestinal Denies abdominal pain, Denies nausea and Denies vomiting Genitourinary Denies dysuria Musculoskeletal Denies joint swelling Integumentary/Breasts Denies rash Neurologic Denies weakness [facility] Medical History ADHD (Acute) 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 (Acute) Social History Smoking/Tobacco Use Status: Current every day Tobacco Type: cigarettes Years smoked: 20 Tobacco: How many years used: 20 Alcohol Intake: never Drug use: Occasionally Substance use type: marijuana Do you feel safe at home: Yes Do you feel safe in your relationship?: Yes Exam Const General: no acute distress Orientation: alert HENMT Head: normal to inspection General nose exam: external nose normal Mouth: moist mucous membranes Eyes General: appearance normal, both eyes and all related structures Neck Neck: normal visual inspection Resp Effort & Inspection: normal respiratory effort and able to speak in complete sentences Cardio Rate: regular rate Skin General skin exam: no rashes or lesions noted Neuro General: alert and oriented x3 Extrem General: normal to inspection Psych Mental Status: mental status grossly normal Course Vital Signs Temperature 36.7 C 11/01/18 10:11 Pulse 65 11/01/18 10:11 Respiratory Rate 20 11/01/18 10:11 Blood Pressure 123/75 11/01/18 10:11 Pulse Oximetry 94 L 11/01/18 10:11 Temperature 36.7 C 11/01/18 10:11 Temperature Source Temporal Artery Scan 11/01/18 10:11 Pulse 65 11/01/18 10:11 Respiratory Rate 20 11/01/18 10:11 Respiratory Effort Non-Labored 11/01/18 10:11 Blood Pressure 123/75 11/01/18 10:11 Blood Pressure Position Sitting 11/01/18 10:11 Pulse Oximetry 94 L 11/01/18 10:11 Oxygen Delivery Method Room Air 11/01/18 10:11 Oxygen Flow Rate 0 11/01/18 10:11 Pain Level 9 11/01/18 10:14
--- NOTE | 2018-11-01 10:29 | ED.GENADUL_ITS ---
Discharge Plan Disposition Patient Disposition: HOME Condition: Stable Discharge Details Chief Complaint: EarProblem Clinical Impression: Otitis externa Primary Care Provider: Twan Brooks ED Provider: Morgan Valdivia Home Meds and New Rx's Prescriptions: New ciprofloxacin-dexamethasone 0.3-0.1 % drops,suspension 4 drp OT BID 5 Days Qty: 7.5 RF: 0 No Action methylphenidate HCl [Ritalin] 20 MG tablet 20 mg PO BID RF: 0 Discharge Instructions Instructions: Otitis Externa (ED) Medical Decision Making 38 yo male comes in with several days of bilateral ear popping and discomfort. Denies fevers or headache. Denies swimming or using q tips. Both tm's appear normal and has mild swelling of both income auditor canals which could be causing his symptoms. No evidence of mastoiditis on exam. Will start him on abx drops for otitis externa and advised f/u with pcp, return precautions given Differential Diagnosis otitis externa, aom ,ear wax HPI General Mode of arrival: ambulatory . Date/Time Provider Initiated Documentation: 11/01/18 10:07 . Limitations to Documentation: no limitations . Information obtained by: patient . History of Present Illness 38 year old M presents to the emergency department with the chief complaint of ear pain bilateral, described as moderate, No relieving factors improve symptom(s), No exacerbating factors reported . Patient did receive the following treatments prior to arrival, none Related Data Home Medications Medication Instructions Recorded Confirmed methylphenidate HCl [Ritalin] 20 mg PO BID 05/08/14 11/01/18 ciprofloxacin-dexamethasone 4 drp OT BID 5 Days #7.5 ml 11/01/18 Previous Rx's Medication Instructions Recorded ciprofloxacin-dexamethasone 4 drp OT BID 5 Days #7.5 ml 11/01/18 Allergies Allergy/AdvReac Type Severity Reaction Status Date / Time codeine Allergy Severe tongue Unverified 11/01/18 10:14 swelling ibuprofen AdvReac Mild stomach Unverified 11/01/18 10:14 upset paroxetine HCl [From Paxil] AdvReac Mild works Unverified 11/01/18 10:14 like viagra General Stated Complaint: EarProblem VALENTINO: 4 Review of Systems Review of Systems All systems reviewed & are unremarkable except as noted in HPI and below Constitutional Denies chills, Denies fever(s) and Denies weakness Cardiovascular Denies chest pain and Denies dyspnea Respiratory Denies dyspnea Gastrointestinal Denies abdominal pain, Denies nausea and Denies vomiting Genitourinary Denies dysuria Musculoskeletal Denies joint swelling Integumentary/Breasts Denies rash Neurologic Denies weakness [facility] Medical History ADHD (Acute) 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 (Acute) Social History Smoking/Tobacco Use Status: Current every day Tobacco Type: cigarettes Years smoked: 20 Tobacco: How many years used: 20 Alcohol Intake: never Drug use: Occasionally Substance use type: marijuana Do you feel safe at home: Yes Do you feel safe in your relationship?: Yes Exam Const General: no acute distress Orientation: alert HENMT Head: normal to inspection General nose exam: external nose normal Mouth: moist mucous membranes Eyes General: appearance normal, both eyes and all related structures Neck Neck: normal visual inspection Resp Effort & Inspection: normal respiratory effort and able to speak in complete sentences Cardio Rate: regular rate Skin General skin exam: no rashes or lesions noted Neuro General: alert and oriented x3 Extrem General: normal to inspection Psych Mental Status: mental status grossly normal Course Vital Signs Temperature 36.7 C 11/01/18 10:11 Pulse 65 11/01/18 10:11 Respiratory Rate 20 11/01/18 10:11 Blood Pressure 123/75 11/01/18 10:11 Pulse Oximetry 94 L 11/01/18 10:11 Temperature 36.7 C 11/01/18 10:11 Temperature Source Temporal Artery Scan 11/01/18 10:11 Pulse 65 11/01/18 10:11 Respiratory Rate 20 11/01/18 10:11 Respiratory Effort Non-Labored 11/01/18 10:11 Blood Pressure 123/75 11/01/18 10:11 Blood Pressure Position Sitting 11/01/18 10:11 Pulse Oximetry 94 L 11/01/18 10:11 Oxygen Delivery Method Room Air 11/01/18 10:11 Oxygen Flow Rate 0 11/01/18 10:11 Pain Level 9 11/01/18 10:14
== END 2018-11-01 10:32 | disposition home or self-care (01) ==
PROVIDERS: Emergency Provider Emergency Medicine; PCP Family Medicine
DX: H60.503 Unspecified acute noninfective otitis externa, bilateral (principal)
CPT/HCPCS: 99283

== ENCOUNTER 2019-01-04 11:31 | Emergency (ER) | payer MEDICAID, SELFPAY ==
[2019-01-04 11:39] VITALS: BP 130/80; PULSE 102; RESP 20; TEMP 36.6; O2SAT 98
--- NOTE | 2019-01-04 12:01 | W.ED.GENAD ---
Discharge Plan Disposition Patient Disposition: HOME Condition: Fair Discharge Details Chief Complaint: Sorethroat Clinical Impression: URI (upper respiratory infection) Primary Care Provider: Twan Brooks ED Provider: Yoselin Smith Home Meds and New Rx's Prescriptions: Continued methylphenidate HCl [Ritalin] 20 MG tablet 20 mg PO BID RF: 0 Discharge Instructions Instructions: Upper Respiratory Infection (ED) Additional Instructions: Encourage hydration. Tylenol and ibuprofen as needed for sore throat. You may use honey to help with symptom management as well. As there is concern for possible Lyme exposure, tick panel has been sent. Please contact primary care for follow-up next week to discuss findings and any persistent symptoms. We will call you with any positive findings. If you develop shortness of breath, difficulty breathing, inability stay hydrated or other new/worsening symptoms please seek care urgently once again Referrals: Twan Brooks [Primary Care Provider] - Medical Decision Making Patient 38-year-old male presented today with chief complaint of URI. He reports that for the past week he has had nasal congestion, sore throat, cough for the past week. Was concerned that he was exposed to Streptococcus meningitis by his nephew. Denies any fevers or chills. Also endorsing fatigue. Rapid strep was negative. On exam, patient appears nontoxic, is resting comfortably. Posterior oropharynx mildly erythematous. He does appear dry. I encouraged hydration. He reports that he drinks minimally throughout the day. Patient is questioning if he may have Lyme as well, states that he has had multiple ticks on him this year. We will try to come Lyme panel. Advised also take a few days to get back. In the interim, advised to treat him for viral URI and discussed home management [id number] medications that may be of benefit to help with symptomatic management. Advise follow-up with primary care next week. Will contact him with any positive results. All his questions and concerns were addressed and he is in agreement this plan. HPI General Mode of arrival: ambulatory. Date/Time Provider Initiated Documentation: 01/04/19 11:44. Limitations to Documentation: no limitations. Information obtained by: patient and RN notes reviewed. History of Present Illness 38 year old M presents to the emergency department with the chief complaint of sore throat, described as moderate, with intensity rated at 8. Quality is described as burning, Patient reports no radiation. Patient started experiencing this week(s) (1) and it has been constant. No relieving factors improve symptom(s), No exacerbating factors reported . Patient notes cough; denies chest pain, diaphoresis, fever/chills, headaches, loss of appetite, malaise, nausea/vomiting, shortness of breath and weakness. Patient did receive the following treatments prior to arrival, none Related Data Home Medications Medication Instructions Recorded Confirmed methylphenidate HCl [Ritalin] 20 mg PO BID 05/08/14 01/04/19 Allergies Allergy/AdvReac Type Severity Reaction Status Date / Time codeine Allergy Severe tongue Unverified 01/04/19 11:41 swelling ibuprofen AdvReac Mild stomach Unverified 01/04/19 11:41 upset paroxetine HCl [From Paxil] AdvReac Mild works Unverified 01/04/19 11:41 like viagra General Stated Complaint: Sorethroat VALENTINO: 4 Review of Systems Constitutional Reports as per HPI, Denies chills, Reports fatigue, Denies fever(s), Denies headache(s), Denies lethargy and Denies poor appetite Eyes Reports as per HPI, Denies eye discharge and Denies irritation ENT Reports as per HPI, Denies ear discharge, Denies otalgia, Denies headache(s), Denies hoarseness, Reports nasal congestion, Reports nasal discharge, Denies sinus pain, Denies sinus pressure, Reports sore throat, Denies throat swelling and Denies tongue swelling Cardiovascular Reports as per HPI, Denies chest pain and Denies dyspnea Respiratory Reports as per HPI, Reports cough (dry), Denies hemoptysis and Denies dyspnea Gastrointestinal Reports as per HPI, Denies abdominal pain, Denies change in bowel habits, Denies nausea and Denies vomiting Integumentary/Breasts Reports as per HPI and Denies rash Neurologic Reports as per HPI and Denies headache(s) Endocrine Reports fatigue Allergic/Immunologic Denies throat swelling and Denies tongue swelling [facility] Medical History ADHD (Acute) 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 (Acute) Social History Smoking/Tobacco Use Status: Current every day Tobacco Type: cigarettes Tobacco: How many years used: 20 Alcohol Intake: never Drug use: Occasionally Substance use type: marijuana Do you feel safe at home: Yes Do you feel safe in your relationship?: Yes Exam Const General: cooperative, healthy appearing, comfortable, no acute distress, well developed and well groomed Nutritional Appearance: average body habitus and well nourished Orientation: alert and awake [facility] Head: normal to inspection, normocephalic and atraumatic Ears: hearing grossly normal bilaterally, external ears normal and TM's normal bilaterally General nose exam: external nose normal and nares normal Face and sinus: normal facial exam, sinuses nontender and face symmetric Mouth: oral mucosae normal, lip normal, tongue normal, oropharynx normal and mucous membranes dry (pateitn appears dry on exam) Teeth and gingiva: dentition normal Throat: posterior oropharynx abnormal (erythematous), uvula midline and tonsils absent Eyes General: appearance normal, both eyes and all related structures Neck Neck: normal visual inspection, full ROM, no lymphadenopathy and no meningeal signs Resp Effort & Inspection: normal respiratory effort, able to speak in complete sentences and no respiratory distress Auscultation: clear to auscultation bilaterally, no rales, no rhonchi and no wheezes Cardio Rate: regular rate Rhythm: regular rhythm Heart Sounds: S1 normal and S2 normal GI Inspection: normal to inspection Skin General skin exam: no rashes or lesions noted Neuro General: alert and awake Cognition: normal cognition Speech: speech normal Gait: normal gait Psych Appearance: grossly normal and well kempt Mental Status: mental status grossly normal Speech and Movement: speech and movement normal Course Vital Signs Temperature 36.6 C 01/04/19 11:39 Pulse 102 H 01/04/19 11:39 Respiratory Rate 20 01/04/19 11:39 Blood Pressure 130/80 01/04/19 11:39 Pulse Oximetry 98 01/04/19 11:39 Temperature 36.6 C 01/04/19 11:39 Pulse 102 H 01/04/19 11:39 Respiratory Rate 20 01/04/19 11:39 Respiratory Effort Non-Labored 01/04/19 11:39 Blood Pressure 130/80 01/04/19 11:39 Pulse Oximetry 98 01/04/19 11:39 Pain Level 8 01/04/19 11:39 Lab/Test Results Lab/Test Results: 01/04/19 11:57 Tonsil - Not Specified Streptococcus Screen (TONY) - Pending POC Strep Test-EDDIE(Rapid) Start: 01/04/19 11:48 Freq: .Rapid Strep Test Status: Active Protocol: Document 01/04/19 11:49 (Rec: 01/04/19 11:54 [id number]) Strep test-EDDIE(Rapid)-POC POC-Strep test-EDDIE (Rapid) Negative POC-Strep test-EDDIE (Rapid) Negative
[2019-01-04 12:29] VITALS: BP 130/80; PULSE 90; RESP 20; TEMP 36.6; O2SAT 98
--- NOTE | 2019-01-04 13:03 | ED.GENADUL_ITS ---
Discharge Plan Disposition Patient Disposition: HOME Condition: Fair Discharge Details Chief Complaint: Sorethroat Clinical Impression: URI (upper respiratory infection) Primary Care Provider: Twan Brooks ED Provider: Yoselin Smith Home Meds and New Rx's Prescriptions: Continued methylphenidate HCl [Ritalin] 20 MG tablet 20 mg PO BID RF: 0 Discharge Instructions Instructions: Upper Respiratory Infection (ED) Additional Instructions: Encourage hydration. Tylenol and ibuprofen as needed for sore throat. You may use honey to help with symptom management as well. As there is concern for possible Lyme exposure, tick panel has been sent. Please contact primary care for follow-up next week to discuss findings and any persistent symptoms. We will call you with any positive findings. If you develop shortness of breath, difficulty breathing, inability stay hydrated or other new/worsening symptoms please seek care urgently once again Referrals: Twan Brooks [Primary Care Provider] - Medical Decision Making Patient 38-year-old male presented today with chief complaint of URI. He reports that for the past week he has had nasal congestion, sore throat, cough for the past week. Was concerned that he was exposed to Streptococcus meningitis by his nephew. Denies any fevers or chills. Also endorsing fatigue. Rapid strep was negative. On exam, patient appears nontoxic, is resting comfortably. Posterior oropharynx mildly erythematous. He does appear dry. I encouraged hydration. He reports that he drinks minimally throughout the day. Patient is questioning if he may have Lyme as well, states that he has had multiple ticks on him this year. We will try to come Lyme panel. Advised also take a few days to get back. In the interim, advised to treat him for viral URI and discussed home management [id number] medications that may be of benefit to help with symptomatic management. Advise follow-up with primary care next week. Will contact him with any positive results. All his questions and concerns were addressed and he is in agreement this plan. HPI General Mode of arrival: ambulatory . Date/Time Provider Initiated Documentation: 01/04/19 11:44 . Limitations to Documentation: no limitations . Information obtained by: patient and RN notes reviewed . History of Present Illness 38 year old M presents to the emergency department with the chief complaint of sore throat, described as moderate, with intensity rated at 8. Quality is described as burning, Patient reports no radiation. Patient started experiencing this week(s) (1) and it has been constant. No relieving factors improve symptom(s), No exacerbating factors reported . Patient notes cough; denies chest pain, diaphoresis, fever/chills, headaches, loss of appetite, malaise, nausea/vomiting, shortness of breath and weakness. Patient did receive the following treatments prior to arrival, none Related Data Home Medications Medication Instructions Recorded Confirmed methylphenidate HCl [Ritalin] 20 mg PO BID 05/08/14 01/04/19 Allergies Allergy/AdvReac Type Severity Reaction Status Date / Time codeine Allergy Severe tongue Unverified 01/04/19 11:41 swelling ibuprofen AdvReac Mild stomach Unverified 01/04/19 11:41 upset paroxetine HCl [From Paxil] AdvReac Mild works Unverified 01/04/19 11:41 like viagra General Stated Complaint: Sorethroat VALENTINO: 4 Review of Systems Constitutional Reports as per HPI, Denies chills, Reports fatigue, Denies fever(s), Denies headache(s), Denies lethargy and Denies poor appetite Eyes Reports as per HPI, Denies eye discharge and Denies irritation ENT Reports as per HPI, Denies ear discharge, Denies otalgia, Denies headache(s), Denies hoarseness, Reports nasal congestion, Reports nasal discharge, Denies sinus pain, Denies sinus pressure, Reports sore throat, Denies throat swelling and Denies tongue swelling Cardiovascular Reports as per HPI, Denies chest pain and Denies dyspnea Respiratory Reports as per HPI, Reports cough (dry), Denies hemoptysis and Denies dyspnea Gastrointestinal Reports as per HPI, Denies abdominal pain, Denies change in bowel habits, Denies nausea and Denies vomiting Integumentary/Breasts Reports as per HPI and Denies rash Neurologic Reports as per HPI and Denies headache(s) Endocrine Reports fatigue Allergic/Immunologic Denies throat swelling and Denies tongue swelling [facility] Medical History ADHD (Acute) 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 (Acute) Social History Smoking/Tobacco Use Status: Current every day Tobacco Type: cigarettes Tobacco: How many years used: 20 Alcohol Intake: never Drug use: Occasionally Substance use type: marijuana Do you feel safe at home: Yes Do you feel safe in your relationship?: Yes Exam Const General: cooperative, healthy appearing, comfortable, no acute distress, well developed and well groomed Nutritional Appearance: average body habitus and well nourished Orientation: alert and awake [facility] Head: normal to inspection, normocephalic and atraumatic Ears: hearing grossly normal bilaterally, external ears normal and TM's normal bilaterally General nose exam: external nose normal and nares normal Face and sinus: normal facial exam, sinuses nontender and face symmetric Mouth: oral mucosae normal, lip normal, tongue normal, oropharynx normal and mucous membranes dry (pateitn appears dry on exam) Teeth and gingiva: dentition normal Throat: posterior oropharynx abnormal (erythematous), uvula midline and tonsils absent Eyes General: appearance normal, both eyes and all related structures Neck Neck: normal visual inspection, full ROM, no lymphadenopathy and no meningeal signs Resp Effort & Inspection: normal respiratory effort, able to speak in complete sentences and no respiratory distress Auscultation: clear to auscultation bilaterally, no rales, no rhonchi and no wheezes Cardio Rate: regular rate Rhythm: regular rhythm Heart Sounds: S1 normal and S2 normal GI Inspection: normal to inspection Skin General skin exam: no rashes or lesions noted Neuro General: alert and awake Cognition: normal cognition Speech: speech normal Gait: normal gait Psych Appearance: grossly normal and well kempt Mental Status: mental status grossly normal Speech and Movement: speech and movement normal Course Vital Signs Temperature 36.6 C 01/04/19 11:39 Pulse 102 H 01/04/19 11:39 Respiratory Rate 20 01/04/19 11:39 Blood Pressure 130/80 01/04/19 11:39 Pulse Oximetry 98 01/04/19 11:39 Temperature 36.6 C 01/04/19 11:39 Pulse 102 H 01/04/19 11:39 Respiratory Rate 20 01/04/19 11:39 Respiratory Effort Non-Labored 01/04/19 11:39 Blood Pressure 130/80 01/04/19 11:39 Pulse Oximetry 98 01/04/19 11:39 Pain Level 8 01/04/19 11:39 Lab/Test Results Lab/Test Results: 01/04/19 11:57 Tonsil - Not Specified Streptococcus Screen (TONY) - Pending POC Strep Test-EDDIE(Rapid) Start: 01/04/19 11:48 Freq: .Rapid Strep Test Status: Active Protocol: Document 01/04/19 11:49 (Rec: 01/04/19 11:54 [id number]) Strep test-EDDIE(Rapid)-POC POC-Strep test-EDDIE (Rapid) Negative POC-Strep test-EDDIE (Rapid) Negative
[2019-01-07 11:47] LABS: Lyme Ab w Rflx to Lyme Confirm Negative
[2019-01-07 14:26] LABS: Anaplasma phagocytophilum Negative (Negative); B. miyamotoi PCR Negative (Negative); Babesia divergens/MO-1 Negative (Negative); Babesia duncani Negative (Negative); Babesia microti Negative (Negative); Ehrlichia chaffeensis Negative (Negative); Ehrlichia ewingii/canis Negative (Negative); Ehrlichia muris eauclairensis Negative (Negative)
== END 2019-01-04 12:27 | disposition home or self-care (01) ==
PROVIDERS: Emergency Provider Physician Assistant; PCP Family Medicine
DX: J06.9 Acute upper respiratory infection, unspecified (principal); R09.81 Nasal congestion; R05 Cough
CPT/HCPCS: 36415; 87880; 99282; 86618; 87081; 87798

== ENCOUNTER 2019-01-31 10:07 | Emergency (ER) | payer MEDICAID, SELFPAY ==
[2019-01-31 10:15] VITALS: BP 128/68; PULSE 84; RESP 16; TEMP 36.6; O2SAT 100
--- NOTE | 2019-01-31 10:20 | W.ED.GENAD ---
Discharge Plan Disposition Patient Disposition: HOME Condition: Improving Discharge Details Chief Complaint: Sorethroat Clinical Impression: Strep pharyngitis Primary Care Provider: Twan Brooks ED Provider: Sathya Uribe Home Meds and New Rx's Prescriptions: New penicillin V potassium 500 mg tablet 500 mg PO TID 10 Days Qty: 30 RF: 0 Cepacol Sore Throat (andres-men) 15-3.6 mg lozenge 1 radha MM Q2H PRN (Reason: sore throat) Qty: 16 RF: 0 No Action methylphenidate HCl [Ritalin] 20 MG tablet 20 mg PO BID RF: 0 Discharge Instructions Instructions: Upper Respiratory Infection (ED) Additional Instructions: Small, frequent sips of fluids and/or popsicles. May use Tylenol and/or ibuprofen as needed for pain. Take penicillin as prescribed. Cepacol lozenges for comfort Return for worsening discomfort or any other acute concern Medical Decision Making 38-year-old male presents from home with day 2 of sore throat. Positive sick contacts at his mother's house where everyone had strep throat. He arrives with normal vital signs, and exam that reveals an erythematous oropharynx but no deviation of the uvula and no significant swelling. Rapid strep test positive. Will treat with penicillin, Cepacol lozenges, liberal amounts of fluids. Patient understands emergent follow-up precautionns. HPI General Mode of arrival: ambulatory. Date/Time Provider Initiated Documentation: 01/31/19 10:07. Limitations to Documentation: no limitations. Information obtained by: patient. History of Present Illness 38 year old M presents to the emergency department with the chief complaint of Imagine sore throat, described as moderate, Quality is described as dull and constant, and is localized to the face. Patient reports no radiation. Patient started experiencing this day(s) and it has been constant. No relieving factors improve symptom(s), No exacerbating factors reported . Patient notes denies fever/chills and nausea/vomiting. Patient did receive the following treatments prior to arrival, none Related Data Home Medications Medication Instructions Recorded Confirmed methylphenidate HCl [Ritalin] 20 mg PO BID 05/08/14 01/31/19 benzocaine-menthol [Cepacol Sore 1 radha MM Q2H PRN #16 each 01/31/19 Throat (andres-men)] penicillin V potassium 500 mg PO TID 10 Days #30 tab 01/31/19 Previous Rx's Medication Instructions Recorded benzocaine-menthol [Cepacol Sore 1 radha MM Q2H PRN #16 each 01/31/19 Throat (andres-men)] penicillin V potassium 500 mg PO TID 10 Days #30 tab 01/31/19 Allergies Allergy/AdvReac Type Severity Reaction Status Date / Time codeine Allergy Severe tongue Unverified 01/31/19 10:22 swelling ibuprofen AdvReac Mild stomach Unverified 01/31/19 10:22 upset paroxetine HCl [From Paxil] AdvReac Mild works Unverified 01/31/19 10:22 like viagra General VALENTINO: 4 Review of Systems Review of Systems 6 systems reviewed and otherwise negative. No cough. Positive sick contacts. 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 Pleasant, well groomed, interactive. HEAD: Normocephalic, atraumatic ENT: Mucous membranes moist, oropharynx erythematous without swelling or significant exit, External ear exam unremarkable, tympanic membranes clear bilaterally EYES: PERRL, EOMI NECK: Full ROM, anterior submandibular lymphadenopathy, no menigismus CHEST/RESP: Nontender, clear to auscultation bilateral, no wheeze/rhonchi/rales CARDIOVASCULAR: RRR, no murmur, rub tony. 2+ Rad pulse bilateral ABDOMEN: Soft, nontender, no mass. +Bowel sounds EXT: Full ROM, no edema, no rash Neuro: Grossly normal neurologic exam, conversant, interactive. Psych: Speech fluent, thoughts congruent, affect normal
--- NOTE | 2019-01-31 10:23 | ED.GENADUL_ITS ---
Discharge Plan Disposition Patient Disposition: HOME Condition: Improving Discharge Details Chief Complaint: Sorethroat Clinical Impression: Strep pharyngitis Primary Care Provider: Twan Brooks ED Provider: Sathya Uribe Home Meds and New Rx's Prescriptions: New penicillin V potassium 500 mg tablet 500 mg PO TID 10 Days Qty: 30 RF: 0 Cepacol Sore Throat (andres-men) 15-3.6 mg lozenge 1 radha MM Q2H PRN (Reason: sore throat) Qty: 16 RF: 0 No Action methylphenidate HCl [Ritalin] 20 MG tablet 20 mg PO BID RF: 0 Discharge Instructions Instructions: Upper Respiratory Infection (ED) Additional Instructions: Small, frequent sips of fluids and/or popsicles. May use Tylenol and/or ibuprofen as needed for pain. Take penicillin as prescribed. Cepacol lozenges for comfort Return for worsening discomfort or any other acute concern Medical Decision Making 38-year-old male presents from home with day 2 of sore throat. Positive sick contacts at his mother's house where everyone had strep throat. He arrives with normal vital signs, and exam that reveals an erythematous oropharynx but no deviation of the uvula and no significant swelling. Rapid strep test positive. Will treat with penicillin, Cepacol lozenges, liberal amounts of fluids. Patient understands emergent follow-up precautionns. HPI General Mode of arrival: ambulatory . Date/Time Provider Initiated Documentation: 01/31/19 10:07 . Limitations to Documentation: no limitations . Information obtained by: patient . History of Present Illness 38 year old M presents to the emergency department with the chief complaint of Imagine sore throat, described as moderate, Quality is described as dull and constant, and is localized to the face. Patient reports no radiation. Patient started experiencing this day(s) and it has been constant. No relieving factors improve symptom(s), No exacerbating factors reported . Patient notes denies fever/chills and nausea/vomiting. Patient did receive the following treat ments prior to arrival, none Related Data Home Medications Medication Instructions Recorded Confirmed methylphenidate HCl [Ritalin] 20 mg PO BID 05/08/14 01/31/19 benzocaine-menthol [Cepacol Sore 1 radha MM Q2H PRN #16 each 01/31/19 Throat (andres-men)] penicillin V potassium 500 mg PO TID 10 Days #30 tab 01/31/19 Previous Rx's Medication Instructions Recorded benzocaine-menthol [Cepacol Sore 1 radha MM Q2H PRN #16 each 01/31/19 Throat (andres-men)] penicillin V potassium 500 mg PO TID 10 Days #30 tab 01/31/19 Allergies Allergy/AdvReac Type Severity Reaction Status Date / Time codeine Allergy Severe tongue Unverified 01/31/19 10:22 swelling ibuprofen AdvReac Mild stomach Unverified 01/31/19 10:22 upset paroxetine HCl [From Paxil] AdvReac Mild works Unverified 01/31/19 10:22 like viagra General VALENTINO: 4 Review of Systems Review of Systems 6 systems reviewed and otherwise negative. No cough. Positive sick contacts. 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 Pleasant, well groomed, interactive. HEAD: Normocephalic, atraumatic ENT: Mucous membranes moist, oropharynx erythematous without swelling or significant exit, External ear exam unremarkable, tympanic membranes clear bilaterally EYES: PERRL, EOMI NECK: Full ROM, anterior submandibular lymphadenopathy, no menigismus CHEST/RESP: Nontender, clear to auscultation bilateral, no wheeze/rhonchi/rales CARDIOVASCULAR: RRR, no murmur, rub tony. 2+ Rad pulse bilateral ABDOMEN: Soft, nontender, no mass. +Bowel sounds EXT: Full ROM, no edema, no rash Neuro: Grossly normal neurologic exam, conversant, interactive. Psych: Speech fluent, thoughts congruent, affect normal
== END 2019-01-31 10:28 | disposition home or self-care (01) ==
PROVIDERS: Emergency Provider Emergency Medicine; PCP Family Medicine
DX: J02.0 Streptococcal pharyngitis (principal)
CPT/HCPCS: 87880; 99283

== ENCOUNTER 2019-05-27 12:42 | Emergency (ER) | payer MEDICAID, SELFPAY ==
[2019-05-27 12:45] VITALS: BP 131/86; PULSE 88; RESP 16; TEMP 36.6; O2SAT 96
--- NOTE | 2019-05-27 13:07 | W.ED.GENAD ---
Discharge Plan Disposition Patient Disposition: HOME Discharge Details Chief Complaint: Sorethroat Clinical Impression: Pharyngitis Primary Care Provider: Twan Brooks ED Provider: Kenneth Martinez Home Meds and New Rx's Prescriptions: No Action methylphenidate HCl [Ritalin] 20 MG tablet 20 mg PO BID RF: 0 Cepacol Sore Throat (andres-men) 15-3.6 mg lozenge 1 radha MM Q2H PRN (Reason: sore throat) Qty: 16 RF: 0 Discharge Instructions Instructions: Pharyngitis (ED) Additional Instructions: Your strep screen was negative in the emergency department today. We will follow-up with culture results. Take Tylenol for pain and/or fevers. Follow up with your provider should symptoms persist. Referrals: Twan Brooks [Primary Care Provider] - 1 week Medical Decision Making This is a nontoxic-appearing 39-year-old male complaining of sore throat. Strep negative here in the emergency department. Discussed supportive measures going forward to return precautions. He will follow-up with his primary care provider should symptoms persist. HPI General Date/Time Provider Initiated Documentation: 05/27/19 13:07. HPI Narrative: Patient is a 39-year-old pack-a-day smoker who presents to the emergency department with sore throat. Patient states that he is had symptoms for over 2 weeks. He states that he had a leftover supply of penicillin which she took roughly 5 to 6 days worth around the onset of symptoms. Symptoms slightly improved afterwards but have persisted since. He denies any measurable fevers however has had cold chills and sweats. He has had a chronic cough. Denies any earaches. No rashes or nausea. Related Data Home Medications Medication Instructions Recorded Confirmed methylphenidate HCl [Ritalin] 20 mg PO BID 05/08/14 05/27/19 benzocaine-menthol [Cepacol Sore 1 radha MM Q2H PRN #16 each 01/31/19 05/27/19 Throat (andres-men)] Previous Rx's Medication Instructions Recorded benzocaine-menthol [Cepacol Sore 1 radha MM Q2H PRN #16 each 01/31/19 Throat (andres-men)] Allergies Allergy/AdvReac Type Severity Reaction Status Date / Time codeine Allergy Severe tongue Unverified 05/27/19 12:48 swelling ibuprofen AdvReac Mild stomach Unverified 05/27/19 12:48 upset paroxetine HCl [From Paxil] AdvReac Mild works Unverified 05/27/19 12:48 like viagra General Stated Complaint: Sorethroat VALENTINO: 4 Review of Systems Constitutional Constitutional: Reports chills, Denies fever(s), Denies lethargy, Reports night sweats and Denies weakness ENT Ears, Nose, Mouth, and Throat: Denies change in voice, Denies nasal trauma, Denies neck mass, Denies post nasal drip, Denies sinus pain, Reports sore throat, Denies throat swelling and Denies tongue swelling Respiratory Respiratory: Reports cough Gastrointestinal Gastrointestinal: Denies diarrhea, Denies nausea and Denies vomiting Integumentary/Breasts Skin/Breast: Denies rash Neurologic Neurologic: Denies weakness Allergic/Immunologic Allergic/Immunologic: Denies throat swelling and Denies tongue swelling [facility] Medical History ADHD (Acute) 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 (Acute) Social History Smoking/Tobacco Use Status: Current every day Tobacco Type: cigarettes Years smoked: 20 Tobacco: How many years used: 20 Alcohol Intake: never Drug use: Occasionally Substance use type: marijuana Do you feel safe at home: Yes Do you feel safe in your relationship?: Yes Exam Const General: cooperative, healthy appearing and comfortable Orientation: alert, awake and oriented x3 HENMT Head: normal to inspection Ears: hearing grossly normal bilaterally and TM's normal bilaterally General nose exam: external nose normal Face and sinus: normal facial exam Mouth: oral mucosae normal Throat: posterior oropharynx abnormal erythema Eyes General: appearance normal, both eyes and all related structures Neck Neck: normal visual inspection, full ROM and no lymphadenopathy Chest Chest: normal inspection of the chest Resp Effort & Inspection: normal respiratory effort and able to speak in complete sentences Auscultation: clear to auscultation bilaterally Cardio Pulses: normal peripheral pulses Skin General skin exam: no rashes or lesions noted Course Vital Signs Vital signs: Vital Signs Temperature 36.6 C 05/27/19 12:45 Pulse 88 05/27/19 12:45 Respiratory Rate 16 05/27/19 12:45 Blood Pressure 131/86 05/27/19 12:45 Pulse Oximetry 96 05/27/19 12:45 Temperature 36.6 C 05/27/19 12:45 Temperature Source Skin 05/27/19 12:45 Pulse 88 05/27/19 12:45 Respiratory Rate 16 05/27/19 12:45 Respiratory Effort Non-Labored 05/27/19 12:45 Blood Pressure 131/86 05/27/19 12:45 Blood Pressure Position Sitting 05/27/19 12:45 Pulse Oximetry 96 05/27/19 12:45 Oxygen Delivery Method Room Air 05/27/19 12:45 Oxygen Flow Rate 0 05/27/19 12:45 Pain Level 7 05/27/19 12:45 Lab/Test Results Lab/Test Results: 05/27/19 12:50 Pharynx Streptococcus Screen (TONY) - Pending POC Strep Test-EDDIE(Rapid) Start: 05/27/19 12:51 Freq: .Rapid Strep Test Status: Active Protocol: Document 05/27/19 12:59 (Rec: 05/27/19 12:59 [id number]) Strep test-EDDIE(Rapid)-POC POC-Strep test-EDDIE (Rapid) Negative POC-Strep test-EDDIE (Rapid) Negative
== END 2019-05-27 13:11 | disposition home or self-care (01) ==
PROVIDERS: Emergency Provider Physician Assistant; PCP Family Medicine
DX: J02.9 Acute pharyngitis, unspecified (principal); F17.210 Nicotine dependence, cigarettes, uncomplicated
CPT/HCPCS: 87880; 99282; 87081

== ENCOUNTER 2019-09-16 14:53 | Emergency (ER) | payer MEDICAID, SELFPAY ==
[2019-09-16] VITALS (26 sets, daily range): BP systolic 101–135; BP diastolic 59–86; PULSE 74–101; RESP 4–24; TEMP 36.6; O2SAT 93–99
[2019-09-16] MEDS: Normal Saline 1,000 ML 1000 ML IV (15:20)
[2019-09-16 15:34] LABS: Abs Immature Grans 0.05 k/cumm (0.0-0.09); Absolute Basophil Count 0.02 k/cumm (0.0-0.2); Absolute Eosinophil Count 0.16 k/cumm (0.0-0.7); Absolute Lymphocyte Count 2.12 k/cumm (1.2-3.4); Absolute Monocyte Count 0.78 k/cumm (0.11-0.7); Absolute Neutrophil Count 4.82 k/cumm (1.2-6.7); Basophils % 0.3; HGB 14.5 g/dL (13.5-17.5); Immature Grans % 0.6 %; Lymphocytes % 26.7; Mean Corp. HGB Concentration 33.7 g/dL (32.0-36.0); Mean Corpuscular Hemoglobin 29.9 pg (27.0-33.0); Mean Corpuscular Volume 88.7 fL (80-95); Mean Platelet Volume 8.7 fL (8.0-11.0); Monocytes % 9.8; Neutrophils % 60.6; Platelet Count 263 x1000/uL (130-400); RBC 4.85 m/cumm (4.50-6.00); RBC Distribution Width 13.5 % (11.8-14.1); White Blood Cell Count 7.95 k/cumm (4.4-10.8)
[2019-09-16] MEDS: Normal Saline - Diluent 50 ML VIAL IV (15:37)
[2019-09-16] MEDS: Omnipaque 350 MG/ML 100 ML BTL IJ (15:37)
[2019-09-16] MEDS: Ondansetron 4 MG/2 ML VIAL IVP (15:41)
[2019-09-16 15:47] LABS: ALT 31 U/L (16-63); AST 21 U/L (15-37); Albumin 3.9 g/dL (3.4-5.0); Alkaline Phosphatase 57 U/L (46-116); Anion Gap 11.6 mmol/L (3-11); BUN 14 mg/dL (7-18); Bilirubin, Total 0.4 mg/dL (0.2-1.0); CO2 25.4 mmol/L (21.0-32.0); CREATININE 0.96 mg/dL (0.70-1.30); Calcium 8.3 mg/dL (8.5-10.1); Chloride 108 mmol/L (98-107); Glucose 116 mg/dL (74-106); Potassium 3.5 mmol/L (3.5-5.1); Sodium 145 mmol/L (136-145); Total Protein 7.3 g/dL (6.4-8.2)
[2019-09-16 15:48] LABS: Prothrombin Time 10.2 sec (9.3-11.0)
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
[2019-09-16] MEDS: Methocarbamol 500 MG TAB PO (18:08)
[2019-09-16] MEDS: Lidocaine 5% Patch 2 PATCH TP (18:08)
[2019-09-16 18:29] LABS: Troponin I < 0.05 ng/Ml (<0.06)
== END 2019-09-16 18:15 | disposition home or self-care (01) ==
PROVIDERS: Physician Assistant; Emergency Provider Physician Assistant; PCP Family Medicine
DX: M54.2 Cervicalgia (principal); S20.212A Contusion of left front wall of thorax, initial encounter; S40.012A Contusion of left shoulder, initial encounter; R10.12 Left upper quadrant pain
CPT/HCPCS: 36415; 74177; 80053; 86850; 86900; 86901; 93005; 96361; 96374; 96375; 96376; 99285; 70450; 71260; 72125; 84484; 85025; 85610; 85730; 93010; 99281; J2405; J3490; L0172

== ENCOUNTER 2019-10-03 10:16 | Emergency (ER) | payer MEDICAID, SELFPAY ==
[2019-10-03 10:19] VITALS: BP 119/73; PULSE 66; RESP 18; TEMP 36.6; O2SAT 96
--- NOTE | 2019-10-03 10:27 | ED.GENADUL_ITS ---
Discharge Plan Disposition Patient Disposition: HOME Condition: Stable Discharge Details Chief Complaint: Sorethroat Clinical Impression: Sinusitis Primary Care Provider: Twan Brooks ED Provider: Morgan Valdivia Home Meds and New Rx's Prescriptions: New amoxicillin-pot clavulanate [Augmentin] 875-125 mg tablet 1 tab PO BID Qty: 14 RF: 0 No Action methylphenidate HCl [Ritalin] 20 MG tablet 20 mg PO BID RF: 0 Discharge Instructions Instructions: Sinusitis (ED) Additional Instructions: if your symptoms persist in a week follow up with your primary care provider within 1 week if you feel more ill or have high fevers or worsening shortness of breath return to the emergency department Medical Decision Making 39 yo male comes in with 3 weeks of sinnus congestion and pain, sore throat, and productive cough. Denies any fevers, chills, chest pain or pressure or recent travel. He has erythema of posterior pharynx, midline uvula, no pain over hyoid or restricted neck movements. No findings to suggest rpa, yacht captain, or epiglotitis. Symptoms consistent with sinusitis, given over 10 days of symptoms will start augmentin and advised to f/u with pcp if not improving within a week and return precautions given. Has clear lung sounds and no fevers so doubt pna Differential Diagnosis Differential Diagnosis: sinusitis, pharyngitis, uri HPI General Mode of arrival: ambulatory . Date/Time Provider Initiated Documentation: 10/03/19 10:20 . Limitations to Documentation: no limitations . Information obtained by: patient . History of Present Illness 39 year old M presents to the emergency department with the chief complaint of sore throat and nasal congestion, described as moderate, and it has been constant. No relieving factors improve symptom(s), No exacerbating factors reported . Related Data Home Medications Medication Instructions Recorded Confirmed methylphenidate HCl [Ritalin] 20 mg PO BID 05/08/14 10/03/19 amoxicillin-pot clavulanate 1 tab PO BID #14 tab 10/03/19 [Augmentin] Previous Rx's Medication Instructions Recorded amoxicillin-pot clavulanate 1 tab PO BID #14 tab 10/03/19 [Augmentin] Allergies Allergy/AdvReac Type Severity Reaction Status Date / Time codeine Allergy Severe tongue Unverified 10/03/19 10:23 swelling ibuprofen AdvReac Mild stomach Unverified 10/03/19 10:23 upset paroxetine HCl [From Paxil] AdvReac Mild works Unverified 10/03/19 10:23 like viagra General Stated Complaint: Sorethroat VALENTINO: 3 Review of Systems All systems reviewed & are unremarkable except as noted in HPI and below Constitutional Constitutional: Denies chills, Denies fever(s) and Denies weakness ENT Ears, Nose, Mouth, and Throat: Denies change in voice Cardiovascular Cardiovascular: Denies chest pain and Denies dyspnea Respiratory Respiratory: Denies dyspnea Gastrointestinal Gastrointestinal: Denies abdominal pain, Denies nausea and Denies vomiting Musculoskeletal Musculoskeletal: Denies joint swelling Neurologic Neurologic: Denies weakness Psychiatric Psychiatric: Denies depression [facility] Social History Smoking/Tobacco Use Status: Current every day Tobacco Type: cigarettes Years smoked: 20 Tobacco: How many years used: 20 Alcohol Intake: current Alcohol Intake frequency: a few times a week Alcohol type: beer Drug use: Daily Substance use type: marijuana Do you feel safe at home: Yes Do you feel safe in your relationship?: Yes Exam Const General: no acute distress Orientation: alert HENMT Head: normal to inspection Ears: external ears normal General nose exam: external nose normal Mouth: moist mucous membranes Eyes General: appearance normal, both eyes and all related structures Neck Neck: normal visual inspection Resp Effort & Inspection: normal respiratory effort and able to speak in complete sentences Cardio Rate: regular rate Skin General skin exam: no rashes or lesions noted Neuro General: alert and oriented x3 Extrem General: normal to inspection Psych Mental Status: mental status grossly normal Course Vital Signs Vital signs: Vital Signs Temperature 36.6 C 10/03/19 10:19 Pulse 66 10/03/19 10:19 Respiratory Rate 18 10/03/19 10:19 Blood Pressure 119/73 10/03/19 10:19 Pulse Oximetry 96 10/03/19 10:19 Temperature 36.6 C 10/03/19 10:19 Temperature Source Skin 10/03/19 10:19 Pulse 66 10/03/19 10:19 Respiratory Rate 18 10/03/19 10:19 Respiratory Effort 10/03/19 10:25 Blood Pressure 119/73 10/03/19 10:19 Pulse Oximetry 96 10/03/19 10:19 Oxygen Delivery Method Room Air 10/03/19 10:19 Oxygen Flow Rate 0 10/03/19 10:19 Pain Level 10 10/03/19 10:19
== END 2019-10-03 10:36 | disposition home or self-care (01) ==
PROVIDERS: Emergency Provider Emergency Medicine; PCP Family Medicine
DX: J01.90 Acute sinusitis, unspecified (principal)
CPT/HCPCS: 99283

== ENCOUNTER 2020-01-21 23:47 | Emergency (ER) | payer MEDICAID, SELFPAY ==
[2020-01-21 23:56] VITALS: BP 135/77; PULSE 93; RESP 20; TEMP 36.8; O2SAT 96
--- NOTE | 2020-01-22 00:08 | ED.GENADUL_ITS ---
Discharge Plan Disposition Patient Disposition: HOME Condition: Stable Discharge Details Chief Complaint: SOB Clinical Impression: Shortness of breath, Cough Primary Care Provider: Twan Brooks ED Provider: Morgan Valdivia Home Meds and New Rx's Prescriptions: New prednisone 20 mg tablet 60 mg PO DAILY 4 Days Qty: 12 RF: 0 doxycycline hyclate 100 mg tablet 100 mg PO BID Qty: 14 RF: 0 Continued methylphenidate HCl [Ritalin] 20 MG tablet 20 mg PO BID RF: 0 Discharge Instructions Instructions: COPD (Chronic Obstructive Pulmonary Disease) (ED) Additional Instructions: Your blood work and xray did not show any concerning findings I suspect you could have undiagnosed COPD. Follow up with your primary care provider within 1 week and discuss having testing for copd I have referred your for COVID19 testing. You should be contacted with a time to get this done. You should try to self quarantine as best you can until you have a negative test if you feel more ill, have worsening shortness of breath or worsening pain return to the emergency department use the albuterol inhaler 2 puffs every 4 hours as needed for shortness of breath Medical Decision Making 39 yo male who is a smoker, who also smokes marijuana, denies other drug use or excessive alcohol use, comes in with 3 days of productive cough and since this morning has had chest burning with coughing and feels short or breath with coughing. Denies fevers, chills, travel, vomit,no chest pressure or chest tightness. He arrives hd stable speaking in full sentences with intermittent cough. He has no leg swelling, no calf pain or tenderenss, no jvd, no murmurs, does have wheezing at the bases bilaterally. Suspect uri vs pna or possible undiagnosed copd with excerbation. Will obtain cxr and give prednisone and albuterol and reassess. Heart score is 3, and symptoms do not seem typical of acs, ecg normal, will obtain troponin and given over 3 hours of symptoms if negative do not feel repeat indicated. WElls low and perc negative so doubt PE. No tearing back pain and normal vascular exam so doubt dissection. Low risk for covid19 but will likely refer for testing if d/c'd. labs and xray unremarkable, he feels better with albuterol, prednisone and [place]. I suspect he has undiagnosed copd so will treat with doxy and d/c home. Advised to f/u with pcp for testing for copd and return precautions given Differential Diagnosis Differential Diagnosis: uri, pna, copd Medical Records Medical records reviewed: Yes I reviewed the patient's medical records. Imaging Data Radiologic Study: Attestation: I personally reviewed and interpreted this imaging study as follows: Imaging: X-Ray Radiologist's impression: IMPRESSION: No acute findings. Lab Data Lab results reviewed: Yes I reviewed the patient's lab results. ECG Data Attestation: I personally reviewed and interpreted this ECG (s) as follows: Prior ECG tracings: not available for review Interpretation: sinus rhythm, rate of 88, qtc 416, no acute st t wave ischemic findings HPI General Mode of arrival: ambulatory . Date/Time Provider Initiated Documentation: 01/21/20 23:47 . Limitations to Documentation: no limitations . Information obtained by: patient . History of Present Illness 39 year old M presents to the emergency department with the chief complaint of cough, described as moderate, Patient started experiencing this day(s) (3) and it has been constant. No relieving factors improve symptom(s), No exacerbating factors reported . Related Data Home Medications Medication Instructions Recorded Confirmed methylphenidate HCl [Ritalin] 20 mg PO BID 05/08/14 01/22/20 doxycycline hyclate 100 mg PO BID #14 tab 01/22/20 prednisone 60 mg PO DAILY 4 Days #12 tab 01/22/20 Previous Rx's Medication Instructions Recorded doxycycline hyclate 100 mg PO BID #14 tab 01/22/20 prednisone 60 mg PO DAILY 4 Days #12 tab 01/22/20 Allergies Allergy/AdvReac Type Severity Reaction Status Date / Time codeine Allergy Severe tongue Unverified 01/22/20 00:02 swelling ibuprofen AdvReac Mild stomach Unverified 01/22/20 00:02 upset paroxetine HCl [From Paxil] AdvReac Mild works Unverified 01/22/20 00:02 like viagra General Stated Complaint: SOB VALENTINO: 2 Review of Systems All systems reviewed & are unremarkable except as noted in HPI and below Constitutional Constitutional: Denies chills, Denies fever(s) and Denies weakness Cardiovascular Cardiovascular: Denies chest pain and Denies dyspnea Respiratory Respiratory: Denies cough and Denies dyspnea Gastrointestinal Gastrointestinal: Denies abdominal pain, Denies nausea and Denies vomiting Neurologic Neurologic: Denies weakness PFSH Social History Smoking/Tobacco Use Status: Current every day Tobacco Type: cigarettes Years smoked: 20 Tobacco: How many years used: 20 Alcohol Intake: current Alcohol Intake frequency: a few times a week Alcohol type: beer Drug use: Daily Substance use type: marijuana Do you feel safe at home: Yes Do you feel safe in your relationship?: Yes Exam Const General: no acute distress Orientation: alert HENMT Head: normal to inspection Ears: external ears normal General nose exam: external nose normal Mouth: moist mucous membranes Eyes General: appearance normal, both eyes and all related structures Neck Neck: normal visual inspection Resp Effort & Inspection: normal respiratory effort and able to speak in complete sentences Cardio Rate: regular rate Skin General skin exam: no rashes or lesions noted Neuro General: patient alert and patient oriented x3 Extrem General: normal to inspection Psych Mental Status: mental status grossly normal Course Vital Signs Vital signs: Vital Signs Temperature 36.8 C 01/21/20 23:56 Pulse 93 H 01/21/20 23:56 Respiratory Rate 01/21/20 23:56 Blood Pressure 135/77 01/21/20 23:56 Pulse Oximetry 96 01/21/20 23:56 Temperature 36.8 C 01/21/20 23:56 Temperature Source Oral 01/21/20 23:56 Pulse 93 H 01/21/20 23:56 Respiratory Rate 20 01/21/20 23:56 Respiratory Effort 01/22/20 00:03 Respiratory Depth Normal 01/22/20 00:03 Respiratory Pattern Normal 01/22/20 00:03 Blood Pressure 135/77 01/21/20 23:56 Blood Pressure Position Sitting 01/21/20 23:56 Pulse Oximetry 96 01/21/20 23:56 Oxygen Delivery Method Room Air 01/21/20 23:56 Oxygen Flow Rate 0 01/21/20 23:56
--- NOTE | 2020-01-22 00:25 | DI.RAD_ITS ---
EXAM: XR PORTABLE CHEST AP CLINICAL HISTORY: cough TECHNIQUE: 2D digital imaging was performed. COMPARISON: No exams were available for comparison FINDINGS: MEDIASTINUM: Normal. HEART: Normal. PULMONARY VASCULATURE: Normal. LUNGS: Clear. PLEURAL SPACE: No pleural effusion or pneumothorax. BONE:Normal. OTHER FINDINGS:Normal. IMPRESSION: No acute pulmonary findings. DATA REPOSITORY: RADIATION DOSE DELIVERED:
[2020-01-22 00:26] LABS: BE (Venous) 2.2 mmol/L (-3-3); HCO3 (Venous) 26 mmol/L (22-28); O2 Sat (Venous) 97 % (70-80); TCO2 (Venous) 23 mmol/L (22-29); pCO2 (Venous) 38 mm/Hg (34-47); pH (Venous) 7.45 (7.35-7.45); pO2 (Venous) 97 mm/Hg (28-44)
[2020-01-22] MEDS: Albuterol HFA 8 GM 60 PUFF INH IH (00:32)
[2020-01-22] MEDS: predniSONE 20 MG TAB 60 MG PO (00:32)
[2020-01-22 00:36] LABS: Abs Immature Grans 0.15 k/cumm (0.0-0.09); Absolute Basophil Count 0.02 k/cumm (0.0-0.2); Absolute Lymphocyte Count 3.73 k/cumm (1.2-3.4); Absolute Monocyte Count 0.65 k/cumm (0.11-0.7); Basophils % 0.2; Eosinophils % 1.8; HGB 15.5 g/dL (13.5-17.5); Immature Grans % 1.3 %; Lymphocytes % 32.8; Mean Corp. HGB Concentration 35.2 g/dL (32.0-36.0); Mean Corpuscular Hemoglobin 31.4 pg (27.0-33.0); Mean Corpuscular Volume 89.2 fL (80-95); Mean Platelet Volume 8.3 fL (8.0-11.0); Monocytes % 5.7; Neutrophils % 58.2; Platelet Count 295 x1000/uL (130-400); RBC 4.93 m/cumm (4.50-6.00); RBC Distribution Width 13.4 % (11.8-14.1); White Blood Cell Count 11.38 k/cumm (4.4-10.8)
[2020-01-22 00:39] LABS: Absolute Neutrophil Count 6.62 k/cumm (1.2-6.7)
--- NOTE | 2020-01-22 00:40 | DI.VRAD_ITS ---
PROCEDURE INFORMATION: Exam: XR Chest, 1 View Exam date and time: 01/22/2020 12:30 AM Age: 39 years old Clinical indication: Cough TECHNIQUE: Imaging protocol: XR of the chest Views: 1 view. COMPARISON: SC CHEST 2 VIEWS PA,LAT 02/22/2017 8:21 PM FINDINGS: Lungs: Unremarkable. No consolidation. Pleural space: Unremarkable. No pleural effusion. No pneumothorax. Heart/Mediastinum: Unremarkable. No cardiomegaly. Bones/joints: Unremarkable. IMPRESSION: No acute findings. Dictated and Authenticated by: Rubén Elizondo MD. Ordering:JAMILAH Mora MD
[2020-01-22] MEDS: Inhaler, Assist Device 1 EACH MC (00:41)
[2020-01-22 00:46] LABS: ALT 26 U/L (16-63); AST 16 U/L (15-37); Albumin 3.8 g/dL (3.4-5.0); Alkaline Phosphatase 65 U/L (46-116); Anion Gap 9.7 mmol/L (3-11); BUN 18 mg/dL (7-18); Bilirubin, Total 0.3 mg/dL (0.2-1.0); CO2 27.3 mmol/L (21.0-32.0); CREATININE 0.93 mg/dL (0.70-1.30); Calcium 9.5 mg/dL (8.5-10.1); Chloride 105 mmol/L (98-107); Glucose 129 mg/dL (74-106); Potassium 3.4 mmol/L (3.5-5.1); Sodium 142 mmol/L (136-145); Total Protein 7.4 g/dL (6.4-8.2)
[2020-01-22 00:47] LABS: NT-proBNP < 5 pg/mL (<300); Troponin I < 0.05 ng/mL (<0.06)
[2020-01-22 00:55] LABS: Diff Comment Agrees w/ Instrument; RBC Morphology Normal
[2020-01-22] MEDS: Doxycycline Hyclate 100 MG CAP PO (00:55)
== END 2020-01-22 01:05 | disposition home or self-care (01) ==
PROVIDERS: Emergency Provider Emergency Medicine; PCP Family Medicine
DX: R06.02 Shortness of breath (principal); R05 Cough; F12.10 Cannabis abuse, uncomplicated; F17.210 Nicotine dependence, cigarettes, uncomplicated
CPT/HCPCS: 36415; 80053; 82805; 93005; 99284; 71045; 83880; 84484; 85025; 93010; J7512

== ENCOUNTER 2020-01-22 08:32 | Outpatient (CLI) | payer MEDICAID, SELFPAY ==
[2020-01-24 07:38] LABS: COVID-19 RT-PCR Result NEGATIVE (Negative)
--- NOTE | 2020-01-24 12:48 | NUR.NOTE ---
phone message left to return call to patient Nursing Note:
--- NOTE | 2020-01-24 13:37 | NUR.NOTE ---
patient aware of negative covid test. Nursing Note:
== END 2020-01-22 08:52 ==
PROVIDERS: PCP Family Medicine; Visit Provider Emergency Medicine
DX: Z11.59 Encounter for screening for other viral diseases (principal)
CPT/HCPCS: U0003

== ENCOUNTER 2020-02-05 10:23 | Emergency (ER) | payer MEDICAID, SELFPAY ==
[2020-02-05 10:32] VITALS: BP 119/86; PULSE 87; RESP 17; TEMP 36.9; O2SAT 97
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
== END 2020-02-05 12:00 | disposition home or self-care (01) ==
PROVIDERS: Emergency Provider Physician Assistant; PCP Family Medicine
DX: S01.512A Laceration without foreign body of oral cavity, initial encounter (principal); W22.09XA Striking against other stationary object, initial encounter
CPT/HCPCS: 99283

== ENCOUNTER 2020-03-04 14:06 | Emergency (ER) | payer MEDICAID, SELFPAY ==
[2020-03-04 14:14] VITALS: BP 149/85; PULSE 76; RESP 14; TEMP 36.4; O2SAT 97
--- NOTE | 2020-03-04 14:27 | ED.GENADUL_ITS ---
Discharge Plan Disposition Patient Disposition: HOME Condition: Improving Discharge Details Chief Complaint: Abd Prob Clinical Impression: Abdominal cramps Primary Care Provider: Twan Brooks ED Provider: Sathya Uribe Home Meds and New Rx's Prescriptions: Continued methylphenidate HCl [Ritalin] 20 MG tablet 20 mg PO BID RF: 0 penicillin V potassium 500 mg tablet 500 mg PO QID Qty: 28 RF: 0 Discharge Instructions Additional Instructions: Home to rest today. Small, frequent sips of fluids to maintain good hydration. Advance diet slowly and observe a bland diet for the next 24 hours. May use Zofran as provided if needed for nausea. Return to the ER for any acute concern. Medical Decision Making 39-year-old male presents from home with onset early this morning of nausea and vomiting associated with crampy abdominal pain. He is afebrile upon arrival with mild tenderness on exam but no evidence of rebound. IV placed, patient given antiemetic, fluids, ketorolac. He was able to rest and felt significantly improved with no further complaints. His laboratories are reassuring. Likely a transient process, patient now improved. Did discuss with him indications to return for reevaluation. He is stable and appropriate for discharge at this time. Will offer small amount of antiemetic for home if needed. Lab Data Lab results reviewed: Yes I reviewed the patient's lab results. Labs: Laboratory Results - last 24 hr 03/04/20 03/04/20 03/04/20 14:20 14:20 14:20 WBC 8.51 RBC 5.08 Hgb 15.3 Hct 45.2 MCV 89.0 MCH 30.1 MCHC 33.8 RDW 13.4 Plt Count 285 MPV 8.7 Immature Gran % 0.8 Neutrophils % 64.3 Lymphocytes % 25.3 Monocytes % 8.1 Eosinophils % 1.3 Basophils % 0.2 Absolute Neutrophils 5.47 Absolute Lymphocytes 2.15 Absolute Monocytes 0.69 Absolute Eosinophils 0.11 Absolute Basophils 0.02 Sodium 140 Potassium 4.2 Chloride 106 Carbon Dioxide 24.6 Anion Gap 9.4 BUN 13 Creatinine 0.81 Estimated GFR/1.73 m2 >= 60.00 Glucose 110 H Calcium 8.7 Total Bilirubin 0.3 AST 16 ALT 29 Alkaline Phosphatase 68 Total Protein 7.3 Albumin 3.8 Lipase 162 HPI General Mode of arrival: ambulatory . Date/Time Provider Initiated Documentation: 03/04/20 14:08 . Limitations to Documentation: no limitations . Information obtained by: patient . History of Present Illness 39 year old M presents to the emergency department with the chief complaint of Nausea, vomiting, described as similar to prior episodes, and is localized to the abdomen. Patient reports no radiation. Patient started experiencing this hour(s) and it has been intermittent. No relieving factors improve symptom(s), No exacerbating factors reported . Patient notes loss of appetite; denies chest pain, fever/chills and syncope. Patient did receive the following treatments prior to arrival, none Related Data Home Medications Medication Instructions Recorded Confirmed methylphenidate HCl [Ritalin] 20 mg PO BID 05/08/14 02/05/20 penicillin V potassium 500 mg PO QID #28 tab 02/05/20 Previous Rx's Medication Instructions Recorded penicillin V potassium 500 mg PO QID #28 tab 02/05/20 Allergies Allergy/AdvReac Type Severity Reaction Status Date / Time codeine Allergy Severe tongue Unverified 02/05/20 10:37 swelling ibuprofen AdvReac Mild stomach Unverified 02/05/20 10:37 upset paroxetine HCl [From Paxil] AdvReac Mild works Unverified 02/05/20 10:37 like viagra General Stated Complaint: Abd Prob VALENTINO: 3 Review of Systems Narrative: States this has happened in the past. Question some food choices last night. No fever, cough, travel. 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 Pleasant, well groomed, interactive. HEAD: Normocephalic, atraumatic ENT: Mucous membranes moist, oropharynx unremarkable, External ear exam unremarkable EYES: PERRL, EOMI NECK: Full ROM, no ERIN, no menigismus CHEST/RESP: Nontender, clear to auscultation bilateral, no wheeze/rhonchi/rales CARDIOVASCULAR: RRR, no murmur, rub tony. 2+ Rad pulse bilateral ABDOMEN: Soft, mild tenderness to palpation, no mass. +Bowel sounds EXT: Full ROM, no edema, no rash Neuro: Grossly normal neurologic exam, conversant, interactive. Psych: Speech fluent, thoughts congruent, affect normal Course Vital Signs Vital signs: Vital Signs Temperature 36.4 C L 03/04/20 14:14 Pulse 76 03/04/20 14:14 Respiratory Rate 14 03/04/20 14:14 Blood Pressure 149/85 H 03/04/20 14:14 Pulse Oximetry 97 03/04/20 14:14 Temperature 36.4 C L 03/04/20 14:14 Temperature Source Tympanic 03/04/20 14:14 Pulse 76 03/04/20 14:14 Respiratory Rate 14 03/04/20 14:14 Respiratory Effort Non-Labored 03/04/20 14:16 Blood Pressure 149/85 H 03/04/20 14:14 Blood Pressure Position Sitting 03/04/20 14:14 Pulse Oximetry 97 03/04/20 14:14 Oxygen Delivery Method Room Air 03/04/20 14:14 Oxygen Flow Rate 0 03/04/20 14:14 Pain Level 10 03/04/20 14:17
[2020-03-04 14:28] LABS: Abs Immature Grans 0.07 k/cumm (0.0-0.09); Absolute Basophil Count 0.02 k/cumm (0.0-0.2); Absolute Eosinophil Count 0.11 k/cumm (0.0-0.7); Absolute Lymphocyte Count 2.15 k/cumm (1.2-3.4); Absolute Monocyte Count 0.69 k/cumm (0.11-0.7); Absolute Neutrophil Count 5.47 k/cumm (1.2-6.7); Basophils % 0.2; Eosinophils % 1.3; HCT 45.2 % (40.0-50.0); HGB 15.3 g/dL (13.5-17.5); Immature Grans % 0.8 %; Lymphocytes % 25.3; Mean Corp. HGB Concentration 33.8 g/dL (32.0-36.0); Mean Corpuscular Hemoglobin 30.1 pg (27.0-33.0); Mean Platelet Volume 8.7 fL (8.0-11.0); Monocytes % 8.1; Neutrophils % 64.3; Platelet Count 285 x1000/uL (130-400); RBC 5.08 m/cumm (4.50-6.00); RBC Distribution Width 13.4 % (11.8-14.1); White Blood Cell Count 8.51 k/cumm (4.4-10.8)
[2020-03-04] MEDS: Normal Saline 1,000 ML 1000 ML IV (14:43)
[2020-03-04] MEDS: Ondansetron 4 MG/2 ML VIAL IVP (14:43)
[2020-03-04] MEDS: Ketorolac 15 MG/ML VIAL IVP (14:44)
[2020-03-04 14:58] LABS: Lipase 162 U/L (73-393)
[2020-03-04 15:01] LABS: ALT 29 U/L (16-63); AST 16 U/L (15-37); Albumin 3.8 g/dL (3.4-5.0); Alkaline Phosphatase 68 U/L (46-116); Anion Gap 9.4 mmol/L (3-11); BUN 13 mg/dL (7-18); Bilirubin, Total 0.3 mg/dL (0.2-1.0); CO2 24.6 mmol/L (21.0-32.0); CREATININE 0.81 mg/dL (0.70-1.30); Calcium 8.7 mg/dL (8.5-10.1); Chloride 106 mmol/L (98-107); Glucose 110 mg/dL (74-106); Potassium 4.2 mmol/L (3.5-5.1); Sodium 140 mmol/L (136-145); Total Protein 7.3 g/dL (6.4-8.2)
[2020-03-04 16:41] VITALS: BP 113/74; PULSE 74; RESP 15; TEMP 36.6; O2SAT 96
== END 2020-03-04 16:42 | disposition home or self-care (01) ==
PROVIDERS: Registered Nurse Emergency; Emergency Provider Emergency Medicine; PCP Family Medicine
DX: R10.30 Lower abdominal pain, unspecified (principal); R11.2 Nausea with vomiting, unspecified
CPT/HCPCS: 36415; 80053; 83690; 96361; 96374; 96375; 99284; 85025; J1885; J2405

== ENCOUNTER 2020-03-06 10:11 | Emergency (ER) | payer MEDICAID, SELFPAY ==
--- NOTE | 2020-03-06 10:15 | DI.CT_ITS ---
EXAM: CT ABDOMEN PELVIS W CLINICAL HISTORY: Abd pain, nausea vomiting TECHNIQUE: Imaging Protocol: Axial computed tomography images with coronal and sagittal reformatted images were created and reviewed CONTRAST MATERIAL: Intravenous: Omnipaque 350 Contrast volume:100 mL Oral: No COMPARISON: CT CT CHEST/ABD/PEL W from 09/16/2019 FINDINGS: ABDOMEN: Lung Bases: Dependent atelectasis. Liver: Normal density. No measurable mass. Portal, Superior Mesenteric, and Splenic Veins: Unremarkable. Gallbladder and Biliary Tract: No radiodense calculus or dilation. Pancreas: Normal density, no abnormal calcifications or inflammatory process. Spleen: Normal. Adrenals: No masses seen. Kidneys: Normal size, contour and axis. No radiodense stones or obstructive uropathy. No masses seen. Abdominal Aorta: Abdominal portion non-dilated. Bowel: There is diffuse bowel wall thickening in the colon particularly the ascending colon. There i s mild increased attenuation in the surrounding fat. The findings are suspicious for an infectious o r inflammatory colitis. Appendix is unremarkable. No evidence of bowel obstruction. Peritoneal Cavity: Trace amount of fluid in the pelvis. No focal fluid collections to suggest an abs cess. No pneumoperitoneum. Lymph Nodes: Within normal limits. Bones: Unremarkable. Soft Tissues: Unremarkable. PELVIS: Bladder: Symmetric distention, no gross wall thickening. Reproductive Organs: Unremarkable as visualized. Lymph Nodes: Within normal limits. Bones: Within normal limits. IMPRESSION: Diffuse colonic bowel wall thickening with pericolonic inflammatory changes in the ascending colon duncan spicious for an infectious or inflammatory colitis. The findings were discussed with the emergency department on the date of the examination. RADIATION DOSE DELIVERED: Total DLP DATA REPOSITORY: All CT scans at this facility are submitted to the National Radiology Data Registry (NRDR) Dose Index Registry (DIR) with the [employer] (A[employer]). RADIATION OPTIMIZATION: All CT scans at this facility use at least one of these dose optimization te chniques: automated exposure control; mA and/or kV adjustment per patient size (includes targeted exa ms where dose is matched to clinical indication); or iterative reconstruction.
[2020-03-06 10:16] VITALS: BP 120/82; PULSE 72; RESP 14; TEMP 36.6; O2SAT 96
[2020-03-06] MEDS: Normal Saline 1,000 ML 1000 ML IV (10:20)
[2020-03-06] MEDS: Normal Saline Flush 10 ML SYR IVP (10:20)
--- NOTE | 2020-03-06 10:27 | ED.GENADUL_ITS ---
Discharge Plan Disposition Patient Disposition: HOME Condition: Stable Discharge Details Chief Complaint: Abd Prob Clinical Impression: Colitis, enteritis, and gastroenteritis of presumed infectious origin Primary Care Provider: Twan Brooks ED Provider: Emerald Gallardo Home Meds and New Rx's Prescriptions: New ciprofloxacin HCl [Cipro] 500 mg tablet 500 mg PO BID 7 Days Qty: 14 RF: 0 ondansetron 4 mg tablet,disintegrating 4 mg PO Q8H PRN (Reason: nausea and vomiting) 5 Days Qty: 15 RF: 0 No Action methylphenidate HCl [Ritalin] 20 MG tablet 20 mg PO BID RF: 0 Discharge Instructions Instructions: Food Poisoning (ED), Colitis (ED) Additional Instructions: Follow up with primary care provider in 3-5 days. Return to ED sooner if any worsening or concerns. Increase oral fluids. Take medications as prescribed. Eat yogurt daily while taking antibiotic or a probiotic. I am sending an outpatient order to have stool collected, you can bring that back to the lab. Return to the ER or be seen by your primary care for any worsening abdominal pain, fever, unable to keep your medications down or any concerns. Increase oral fluids drink Gatorade while having diarrhea. Referrals: Twan Brooks [Primary Care Provider] - Discharge Data Discharge Date/Time-TO BE ENTERED AT DEPARTURE: 03/06/20 13:32 Medical Decision Making 39-year-old male presents to the ER with chief complaint of abdominal pain. This is a second visit last 48 hours. Patient states he has some midepigastric pain which radiates down into his left flank is intermittent in nature, associated with diarrhea which she reports began as a clear turned into charcoal-looking material. Denies any hematemesis or coffee-ground emesis, he does report emesis associated with this as well but mostly consists of food material. Denies any dysuria problems urinating, no shortness of breath or cough no fever. This is moderate to severe nature. No abdominal surgical history. EXAM: CT ABDOMEN PELVIS W CLINICAL HISTORY: Abd pain, nausea vomiting TECHNIQUE: Imaging Protocol: Axial computed tomography images with coronal and sagittal reformatted images were created and reviewed CONTRAST MATERIAL: Intravenous: Omnipaque 350 Contrast volume:100 mL Oral: No COMPARISON: CT CT CHEST/ABD/PEL W from 09/16/2019 FINDINGS: ABDOMEN: Lung Bases: Dependent atelectasis. Liver: Normal density. No measurable mass. Portal, Superior Mesenteric, and Splenic Veins: Unremarkable. Gallbladder and Biliary Tract: No radiodense calculus or dilation. Pancreas: Normal density, no abnormal calcifications or inflammatory process. Spleen: Normal. Adrenals: No masses seen. Kidneys: Normal size, contour and axis. No radiodense stones or obstructive uropathy. No masses seen. Abdominal Aorta: Abdominal portion non-dilated. Bowel: There is diffuse bowel wall thickening in the colon particularly the ascending colon. There is mild increased attenuation in the surrounding fat. The findings are suspicious for an infectious or inflammatory colitis. Appendix is unremarkable. No evidence of bowel obstruction. Peritoneal Cavity: Trace amount of fluid in the pelvis. No focal fluid collections to suggest an abscess. No pneumoperitoneum. Lymph Nodes: Within normal limits. Bones: Unremarkable. Soft Tissues: Unremarkable. PELVIS: Bladder: Symmetric distention, no gross wall thickening. Reproductive Organs: Unremarkable as visualized. Lymph Nodes: Within normal limits. Bones: Within normal limits. IMPRESSION: Diffuse colonic bowel wall thickening with pericolonic inflammatory changes in the ascending colon suspicious for an infectious or inflammatory colitis. The findings were discussed with the emergency department on the date of the examination. 1207: Discussed CT findings with patient, verbalized understanding. Plan is to discharge patient on Cipro and Flagyl with strict return instructions. Will order an outpatient stool specimen including ova parasite with close follow-up with PCP. Will perform p.o. challenge prior to discharge. Discussed eating yogurt HPI General Mode of arrival: ambulatory . Date/Time Provider Initiated Documentation: 03/06/20 10:12 . Limitations to Documentation: no limitations . Information obtained by: patient . HPI Narrative: 39-year-old male presents to the ER with chief complaint of abdominal pain. This is a second visit last 48 hours. Patient states he has some midepigastric pain which radiates down into his left flank is intermittent in nature, associated with diarrhea which she reports began as a clear turned into charcoal-looking material. Denies any hematemesis or coffee-ground emesis, he does report emesis associated with this as well but mostly consists of food material. Denies any dysuria problems urinating, no shortness of breath or cough no fever. This is moderate to severe nature. No abdominal surgical history. Related Data Home Medications Medication Instructions Recorded Confirmed methylphenidate HCl [Ritalin] 20 mg PO BID 05/08/14 03/06/20 ciprofloxacin HCl [Cipro] 500 mg PO BID 7 Days #14 tab 03/06/20 ondansetron 4 mg PO Q8H PRN 5 Days #15 tab 03/06/20 Previous Rx's Medication Instructions Recorded ciprofloxacin HCl [Cipro] 500 mg PO BID 7 Days #14 tab 03/06/20 ondansetron 4 mg PO Q8H PRN 5 Days #15 tab 03/06/20 Allergies Allergy/AdvReac Type Severity Reaction Status Date / Time codeine Allergy Severe tongue Unverified 03/06/20 10:21 swelling ibuprofen AdvReac Mild stomach Unverified 03/06/20 10:21 upset paroxetine HCl [From Paxil] AdvReac Mild works Unverified 03/06/20 10:21 like viagra General Stated Complaint: Abd Prob VALENTINO: 3 Review of Systems Narrative: Constitutional: Negative for weight loss, alert and oriented, well groomed, normal body habitus, appears comfortable. HEENT: Denies trauma, headaches, blurry vision, nasal discharge, sore throat, trouble swallowing. Chest: Denies chest pain, palpitations, irregular rhythm, hypertension. Respiratory: Denies Shortness of breath, cough, hemoptysis. GI: Denies abdominal pain, nausea, vomiting, diarrhea, constipation. : Denies dysuria, hematuria, flank pain, rectal bleeding. Neuro: Denies dizziness, blurry vision, weakness, syncope, headache or facial numbness. Hematologic: Denies easy bruising, intolerance to heat or cold, hair loss. 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 Appears stated age. Normal body habitus. Head: Normocephalic, no trauma. Eyes: Pupils PERRLA, Red reflex noted, EOM's intact. Eyelids symmetrical without lesions, discharge, or swelling. ENT: Bilateral TM's WNL, External ear normal to inspection, no mastoid TTP, swelling, or erythema, Nasal turbinates WNL, no nasal discharge. Normal dentition, Posterior pharynx WNL, no exudate. Chest: RRR, Normal S1, S2, distal pulses intact. Resp: Lungs clear to auscultation bilaterally, no wheezes, rales, or rhonchi. Abdomen: Generalized tender to palpation, hypoactive bowel sounds all 4 qu adrants, nondistended. Rectal: Soft brown stool noted, small flesh-colored non-engorged hemorrhoid noted to approximately 12:00. Patient tolerated exam with difficulty, bedside Hemoccult guaiac positive. Anahi RN at bedside for witness during exam. Musculoskeletal: Normal gait, 5/5 strength to all four extremities. Skin: No suspicious rashes or lesions. Capillary refill less than 2 sec. Neurologic: Cranial nerves II-XII intact. Alert and oriented x 3. DTR's intact. Hematologic/Lymphatic: No ecchymosis, no lymphadenopathy. Course Vital Signs Vital signs: Vital Signs Temperature 36.6 C 03/06/20 10:16 Pulse 72 03/06/20 10:16 Respiratory Rate 14 03/06/20 10:16 Blood Pressure 120/82 03/06/20 10:16 Pulse Oximetry 96 03/06/20 10:16 Temperature 36.6 C 03/06/20 10:16 Temperature Source Skin 03/06/20 10:16 Pulse 72 03/06/20 10:16 Respiratory Rate 14 03/06/20 10:16 Respiratory Effort 03/06/20 10:22 Blood Pressure 120/82 03/06/20 10:16 Pulse Oximetry 96 03/06/20 10:16 Oxygen Delivery Method Room Air 03/06/20 10:16 Oxygen Flow Rate 0 03/06/20 10:16 Procedures Stool Hemoccult Procedural Steps Taken: stool placed in appropriate test area, developer placed on stool and control areas and controls appropriately positive and negative Hemoccult result: positive
[2020-03-06 10:37] LABS: Abs Immature Grans 0.11 k/cumm (0.0-0.09); Absolute Basophil Count 0.02 k/cumm (0.0-0.2); Absolute Eosinophil Count 0.15 k/cumm (0.0-0.7); Absolute Lymphocyte Count 2.51 k/cumm (1.2-3.4); Absolute Monocyte Count 0.72 k/cumm (0.11-0.7); Basophils % 0.2; Eosinophils % 1.6; HCT 45.2 % (40.0-50.0); HGB 15.6 g/dL (13.5-17.5); Immature Grans % 1.1 %; Lymphocytes % 26.1; Mean Corp. HGB Concentration 34.5 g/dL (32.0-36.0); Mean Corpuscular Hemoglobin 30.3 pg (27.0-33.0); Mean Corpuscular Volume 87.8 fL (80-95); Mean Platelet Volume 8.5 fL (8.0-11.0); Monocytes % 7.5; Neutrophils % 63.5; Platelet Count 299 x1000/uL (130-400); RBC 5.15 m/cumm (4.50-6.00); RBC Distribution Width 13.2 % (11.8-14.1); White Blood Cell Count 9.61 k/cumm (4.4-10.8)
[2020-03-06] MEDS: Ondansetron 4 MG/2 ML VIAL IVP (10:40)
[2020-03-06] MEDS: fentaNYL 100 MCG/2 ML VIAL 50 MCG IVP ×2 (10:42→11:51)
[2020-03-06 10:49] LABS: ALT 25 U/L (16-63); AST 14 U/L (15-37); Albumin 3.7 g/dL (3.4-5.0); Alkaline Phosphatase 58 U/L (46-116); Anion Gap 12.3 mmol/L (3-11); BUN 11 mg/dL (7-18); Bilirubin, Total 0.3 mg/dL (0.2-1.0); CO2 24.7 mmol/L (21.0-32.0); CREATININE 0.87 mg/dL (0.70-1.30); Calcium 8.8 mg/dL (8.5-10.1); Chloride 103 mmol/L (98-107); Glucose 108 mg/dL (74-106); Lipase 106 U/L (73-393); Potassium 4.1 mmol/L (3.5-5.1); Sodium 140 mmol/L (136-145); Total Protein 7.4 g/dL (6.4-8.2)
[2020-03-06] MEDS: Normal Saline - Diluent 50 ML VIAL IV (11:11)
[2020-03-06] MEDS: Omnipaque 350 MG/ML 100 ML BTL IJ (11:12)
[2020-03-06 11:56] LABS: Bilirubin Negative (Negative); Blood Trace-intact (Negative); Clarity Clear (Clear); Glucose Negative (Negative); Ketones Negative (Negative); Leukocyte Esterase Negative (Negative); Nitrite Negative (Negative); Urobilinogen 0.2 EU/dL (Up TO 0.2); pH 6.5 (5-8)
[2020-03-06 12:07] LABS: Bacteria Rare HPF (Negative); C & S Indicated? No; Casts Negative LPF (Negative); Crystals Negative HPF (Negative); Epithelial Cells Negative HPF (Negative); Mucus Negative (Negative); Other Cells Negative (Negative); WBC Negative HPF (0-5)
[2020-03-06] MEDS: Ciprofloxacin 500 MG TAB PO (12:22)
[2020-03-06] MEDS: metroNIDAZOLE 500 MG/100 ML BAG 100 MG IVPB (12:23)
[2020-03-06 12:28] VITALS: BP 120/77; PULSE 58; RESP 18; TEMP 36.6; O2SAT 98
[2020-03-06 12:46] VITALS: BP 104/67; PULSE 60; RESP 16
[2020-03-06 13:25] VITALS: BP 131/86; PULSE 69; RESP 16; TEMP 36.3; O2SAT 99
== END 2020-03-06 13:32 | disposition home or self-care (01) ==
PROVIDERS: Emergency Provider Registered Nurse Emergency; PCP Family Medicine
DX: A09 Infectious gastroenteritis and colitis, unspecified (principal); R11.2 Nausea with vomiting, unspecified; R19.5 Other fecal abnormalities
CPT/HCPCS: 36415; 80053; 83690; 96361; 96365; 96375; 96376; 99285; 74177; 81003; 81015; 85025; 99284; J2405; J3010; J3490

== ENCOUNTER 2020-03-09 11:35 | Outpatient (REF) | payer MEDICAID, SELFPAY ==
[2020-03-10 11:32] LABS: Campylobacter PCR Negative (Negative); Salmonella PCR Negative (Negative); Shiga Toxin PCR Negative (Negative); Shigella/Enteroinvasive Ecoli Negative (Negative)
== END 2020-03-09 11:55 ==
LOC: LBN 11:35
PROVIDERS: PCP Family Medicine; Referring Provider Registered Nurse Emergency; Visit Provider Family Medicine
DX: A09 Infectious gastroenteritis and colitis, unspecified (principal)
CPT/HCPCS: 87329; 87505; 87177

== ENCOUNTER 2020-03-15 13:23 | Emergency (ER) | payer MEDICAID, SELFPAY ==
[2020-03-15 13:26] VITALS: BP 153/94; PULSE 101; RESP 20; TEMP 37; O2SAT 99
--- NOTE | 2020-03-15 13:31 | ED.GENADUL_ITS ---
Discharge Plan Disposition Patient Disposition: HOME Condition: Improving Discharge Details Chief Complaint: Orthopedic Clinical Impression: Right foot sprain Primary Care Provider: Twan Brooks ED Provider: Sathya Uribe Home Meds and New Rx's Prescriptions: Continued methylphenidate HCl [Ritalin] 20 MG tablet 20 mg PO BID RF: 0 Discharge Instructions Instructions: Foot Sprain (ED) Additional Instructions: Walking boot with crutches as needed until he can wean to the walking boot and then eventually wean to normal shoes over approximately 5 to 10 days time. Elevate to reduce pain and swelling. May remove the boot at home and apply ice. May remove for bathing and sleep as well. Tylenol and/or ibuprofen as needed for pain. Please follow-up with Dr. Brooks for recheck if not improving in 10 days time. Medical Decision Making 39-year-old male presents from home after running last night stepping in a depression of the ground and twisting his right ankle. Now with right ankle and foot swelling with lateral ecchymosis. Referred for x-ray which does not reveal acute bony injury. Will place in a walking boot with crutches until he can wean from both. He understands homecare and is stable for discharge at this time. HPI General Mode of arrival: ambulatory . Date/Time Provider Initiated Documentation: 03/15/20 13:24 . Limitations to Documentation: no limitations . Information obtained by: patient . History of Present Illness 39 year old M presents to the emergency department with the chief complaint of Right ankle and foot pain after running and stepping in a 4 inch depression, described as moderate, Quality is described as dull and constant, and is localized to the right and lower extremity. Patient reports no radiation. Patient started experiencing this hour(s) and it has been constant. Rest improves symptom(s), Other factors that worsen symptoms (Worse with weightbearing) . Patient did receive the following treatments prior to arrival, NSAID Related Data Home Medications Medication Instructions Recorded Confirmed methylphenidate HCl [Ritalin] 20 mg PO BID 05/08/14 03/15/20 Allergies Allergy/AdvReac Type Severity Reaction Status Date / Time codeine Allergy Severe tongue Unverified 03/15/20 13:28 swelling ibuprofen AdvReac Mild stomach Unverified 03/15/20 13:28 upset paroxetine HCl [From Paxil] AdvReac Mild works Unverified 03/15/20 13:28 like viagra General Stated Complaint: Orthopedic VALENTINO: 4 Review of Systems Narrative: No other injury, no loss of consciousness, no head trauma. Abdominal discomfort has been improving. 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 Pleasant, well groomed, interactive. HEAD: Normocephalic, atraumatic CHEST/RESP: No respiratory distress EXT: Full ROM, right foot is ecchymotic and swollen primarily laterally. Tender throughout. Palpable DP present. Neuro: Grossly normal neurologic exam, conversant, interactive. Psych: Speech fluent, thoughts congruent, affect normal Course Vital Signs Vital signs: Vital Signs Temperature 37 C 03/15/20 13:26 Pulse 101 H 03/15/20 13:26 Respiratory Rate 03/15/20 13:26 Blood Pressure 153/94 H 03/15/20 13:26 Pulse Oximetry 99 03/15/20 13:26 Temperature 37 C 03/15/20 13:26 Temperature Source Skin 03/15/20 13:26 Pulse 101 H 03/15/20 13:26 Respiratory Rate 20 03/15/20 13:26 Blood Pressure 153/94 H 03/15/20 13:26 Blood Pressure Position Sitting 03/15/20 13:26 Pulse Oximetry 99 03/15/20 13:26 Oxygen Delivery Method Room Air 03/15/20 13:26 Oxygen Flow Rate 0 03/15/20 13:26 Pain Level 0 03/15/20 13:26
--- NOTE | 2020-03-15 13:50 | DI.RAD_ITS ---
EXAM: XR ANKLE RT COMPLETE CLINICAL HISTORY: lateral pain and swelling TECHNIQUE: COMPARISON: CR XR FOOT RT COMPLETE from 03/15/2020 FINDINGS: Three views of the ankle and three views of the foot were obtained. The ankle mortise is well mainta ined. No fracture seen involving foot or ankle. IMPRESSION:
[2020-03-15 14:08] VITALS: PULSE 101; RESP 20; TEMP 37; O2SAT 99
== END 2020-03-15 14:20 | disposition home or self-care (01) ==
LOC: ER 13:59
PROVIDERS: Emergency Provider Emergency Medicine; PCP Family Medicine
DX: S93.601A Unspecified sprain of right foot, initial encounter (principal); W17.2XXA Fall into hole, initial encounter; Y93.02 Activity, running
CPT/HCPCS: 99284; 73610; 73630; L4361

== ENCOUNTER 2021-06-04 07:36 | Emergency (ER) | payer MEDICAID, SELFPAY ==
[2021-06-04 07:43] VITALS: BP 124/70; PULSE 80; RESP 12; TEMP 37.1; O2SAT 97
--- NOTE | 2021-06-04 08:00 | DI.RAD_ITS ---
Exam(s) XR PORTABLE CHEST AP EXAM: XR PORTABLE CHEST AP CLINICAL HISTORY: cough TECHNIQUE: 2D digital imaging was performed of the chest. One image was obtained. An AP view was ob tained. COMPARISON: CR,XR XR PORTABLE CHEST AP from 01/22/2020 FINDINGS: MEDIASTINUM: Normal. HEART: Normal. PULMONARY VASCULATURE: Normal. LUNGS: Clear. PLEURAL SPACE: No pleural effusion or pneumothorax. BONE:Within normal limits for the patient's age. OTHER FINDINGS:Normal. IMPRESSION: No acute pulmonary findings. DATA REPOSITORY: RADIATION DOSE DELIVERED:
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
[2021-06-04] MEDS: Acetaminophen 500 MG TAB 1000 MG PO (08:31)
[2021-06-04] MEDS: Ibuprofen 600 MG TAB PO (08:31)
[2021-06-04 09:25] VITALS: BP 126/74; PULSE 76; RESP 14; O2SAT 97
[2021-06-05 11:00] LABS: COVID-19 RT-PCR UVMMC Result Negative (Negative)
--- NOTE | 2021-06-07 10:53 | NUR.NOTE ---
Addendum entered by Qian Harrison 06/07/21 11:26: Patient called @ 1107 this morning and stated he got the negative result last night. Was just returning call. Qian Harrison Original Note: negative covid result sent via mailNursing Note:
== END 2021-06-04 09:24 | disposition home or self-care (01) ==
PROVIDERS: Emergency Provider Physician Assistant; PCP Family Medicine
DX: J06.9 Acute upper respiratory infection, unspecified (principal)
CPT/HCPCS: 99283; U0003; 71045

== ENCOUNTER 2021-07-23 08:11 | Emergency (ER) | payer MEDICAID, SELFPAY ==
[2021-07-23 08:18] VITALS: BP 132/76; PULSE 77; RESP 18; TEMP 36.3; O2SAT 97
--- NOTE | 2021-07-23 08:30 | DI.RAD_ITS ---
Exam(s) XR CHEST 2V PA LATERAL EXAM: XR CHEST 2V PA LATERAL CLINICAL HISTORY: cough, hemoptysis TECHNIQUE: 2D digital imaging was performed of the chest. Two images were obtained. PA and lateral views were obtained. COMPARISON: CR XR PORTABLE CHEST AP from 06/04/2021 CR XR PORTABLE CHEST AP from 06/04/2021 FINDINGS: MEDIASTINUM: Normal. HEART: Normal. PULMONARY VASCULATURE: Normal. LUNGS: Clear. PLEURAL SPACE: No pleural effusion or pneumothorax. BONE:Within normal limits for the patient's age. OTHER FINDINGS:Normal. IMPRESSION: No acute pulmonary findings. DATA REPOSITORY: RADIATION DOSE DELIVERED:
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
[2021-07-23 09:41] VITALS: BP 130/87; PULSE 80; RESP 18; TEMP 36.5
== END 2021-07-23 09:49 | disposition home or self-care (01) ==
PROVIDERS: Emergency Provider Physician Assistant; PCP Family Medicine
DX: J20.9 Acute bronchitis, unspecified (principal); R04.2 Hemoptysis; F17.210 Nicotine dependence, cigarettes, uncomplicated
CPT/HCPCS: 87635; 99283; 71046

== ENCOUNTER 2021-08-31 14:25 | Emergency (ER) | payer MEDICAID, SELFPAY ==
[2021-08-31] VITALS (21 sets, daily range): BP systolic 117–141; BP diastolic 74–90; PULSE 54–86; RESP 9–23; TEMP 36.7; O2SAT 94–97
--- NOTE | 2021-08-31 14:30 | RT.EKG_ITS ---
APPROVED REPORT Exam: Resting ECG Reason for Exam: abd pain Patient Location: E HR:65 bpm ECG Measurements Heart Rate 65 AXIS [place] 171 P 23 QRSd 91 QRS 69 QT 382 T 41 QTc 397 Conclusion Sinus rhythm...normal P axis, V-rate 60- 99. Sinus. Normal axis. No STEMI. I have reviewed and interpreted ECG and agree with software generated interpretation.
[2021-08-31 15:04] LABS: Abs Immature Grans 0.14 10^3/uL (0.0-0.06); Absolute Basophil Count 0.04 10^3/uL (0.0-0.2); Absolute Eosinophil Count 0.21 10^3/uL (0.0-0.7); Absolute Lymphocyte Count 3.14 10^3/uL (1.2-3.4); Absolute Monocyte Count 0.79 10^3/uL (0.1-0.8); Absolute Neutrophil Count 5.32 10^3/uL (1.2-6.7); Basophils % 0.4; Eosinophils % 2.2; HCT 42.4 % (40.0-50.0); HGB 14.5 g/dL (13.5-17.5); Immature Grans % 1.5; Lymphocytes % 32.6; MCH 30.2 pg (27.0-33.0); MCHC 34.2 % (32.0-36.0); MCV 88.3 fL (80-95); MPV 8.9 fL (8.0-11.0); Monocytes % 8.2; Neutrophils % 55.1; Nucleated RBC 0 %; Platelet Count 282 10^3/uL (130-400); RDW 12.7 % (11.8-14.1); RDW-SD 41.8 fL; WBC 9.64 10^3/uL (4.4-10.8)
[2021-08-31 15:19] LABS: ALT 35 U/L (16-63); AST 17 U/L (15-37); Albumin 3.6 g/dL (3.4-5.0); Alkaline Phosphatase 61 U/L (46-116); Anion Gap 8.5 mmol/L (3-11); BUN 13 mg/dL (7-18); Bilirubin, Total 0.4 mg/dL (0.2-1.0); CO2 25.5 mmol/L (21.0-32.0); CREATININE 0.8 mg/dL (0.70-1.30); Calcium 8.8 mg/dL (8.5-10.1); Chloride 106 mmol/L (98-107); Glucose 78 mg/dL (74-106); Potassium 3.8 mmol/L (3.5-5.1); Sodium 140 mmol/L (136-145); Total Protein 7.1 g/dL (6.4-8.2); Troponin I < 50 ng/L (<or=60)
[2021-08-31 15:21] LABS: Lipase 127 U/L (73-393)
--- NOTE | 2021-08-31 15:45 | DI.US_ITS ---
Exam(s) US ABDOMEN LIMITED EXAM: US ABDOMEN LIMITED CLINICAL HISTORY: RUQ pain, r/o cholecystitis TECHNIQUE: Ultrasound abdomen performed using standard protocol. COMPARISON: CT scan 03/06/2020 was reviewed. FINDINGS: There is no ascites evident. LIVER: There are no hepatic lesions evident nor dilatation of intrahepatic ducts. GALLBLADDER/BILIARY: Gallbladder somewhat contracted as the patient apparently a few hours ago. No o bvious shadowing gallstones within the contracted gallbladder lumen. The common hepatic duct isnot dilated, measuring 4.4mm at the level of mya hepatis. PANCREAS: Not visualized due to overlying bowel gas. RIGHT KIDNEY:No evidence of solid mass, calculus, nor hydronephrosis. No cortical cysts evident. IMPRESSION: 1. Gallbladder is contracted (patient apparently ate just a few hours ago). No obvious gallstones. Common hepatic duct is not dilated. 2. Pancreas is not well seen on this study. It appeared unremarkable on CT scan February 2020 3. There is no ascites. Please note that CT scan performed February 2020 revealed a diffuse colitis pattern involving the entire colon. DATA REPOSITORY:
[2021-08-31] MEDS: ACETAMINOPHEN 1,000 MG/100 ML BTL 400 MG IVPB (15:53)
[2021-08-31] MEDS: Sucralfate 1 GM TAB PO (15:53)
[2021-08-31] MEDS: Ondansetron 4 MG/2 ML VIAL IVP (15:53)
[2021-08-31] MEDS: Normal Saline 1,000 ML 1000 ML IV (15:54)
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
[2021-08-31] MEDS: Omnipaque 350 MG/ML 100 ML BTL IJ (16:10)
--- NOTE | 2021-08-31 16:47 | DI.CT_ITS ---
Exam(s) CT CHEST PE ABD PELVIS W EXAM: CT CHEST PE ABD PELVIS W CLINICAL HISTORY: leg cramps, epigastric pain, r/o PE, gallstones. TECHNIQUE: Imaging Protocol: Axial CT angiography was performed with multi-slice acquisition and m ulti-planar and/or 3D reconstructions. CONTRAST MATERIAL: Intravenous: Omnipaque 350 Contrast volume:100 ml Oral: None COMPARISON: CT CT ABDOMEN PELVIS W from 03/06/2020 FINDINGS: CHEST: PULMONARY ARTERIES: There are no intra-arterial filling defects to suggest the presence of acute pulm onary emboli. LUNGS: There is no evidence of pulmonary infarction.Mild infiltrate noted in posterior basal segment both lower lobes, more so on the right side. There are no pleural effusions.No ominous pulmonary nod ules. There are no significant focal findings in the trachea and mainstem bronchi MEDIASTINUM: There is slightly enlarged hilar lymph nodes and there is also and enlarged right subcar inal lymph node measuring 2.4 x 1.4 cm adjacent to the esophagus. Visualized thyroid unremarkable. CARDIAC: Heart size is normal. There is no pericardial effusion. There is no significant shift of t he interventricular septum.Caliber of the thoracic aorta is within normal limits. OSSEOUS: No significant osseous lesions.. ABDOMEN: There is no ascites. LIVER: There are no focal hepatic lesions nor dilatation of intrahepatic ducts. GALLBLADDER/BILIARY: Gallbladder is contracted. There are no obvious radiopaque calculi within the g allbladder lumen. No pericholecystic fluid. CBD is not dilated. PANCREAS: No evidence of pancreatic mass nor dilatation of the pancreatic duct. SPLEEN: Spleen is not enlarged. There are no intrasplenic lesions. Splenic and portal veins are sheehan nt. ADRENALS: There are no significant adrenal masses. KIDNEYS:A small 4 millimeters cyst in the left kidney. No calculi nor hydronephrosis. No solid renal masses. ABDOMINAL AORTA: Abdominal aorta is not enlarged. LYMPH NODES: There is no retroperitoneal or para-aortic adenopathy. ABDOMINAL WALL/GI: No evidence of significant anterior abdominal wall hernia. No bowel obstruction. PELVIS: LYMPH NODES: There is no intrapelvic nor inguinal adenopathy. GI: No evidence of appendicitis.No evidence of sigmoid diverticulitis. URINARY BLADDER: No calculi nor masses evident REPRODUCTIVE: Prostate not enlarged. Seminal vesicles unremarkable. OSSEOUS: No significant osseous lesions. Sacroiliac joints appear unremarkable. IMPRESSION: 1. No evidence of acute pulmonary emboli nor pulmonary infarction. 2. Mild infiltrate in both lower lobes posterior basal segments, slightly more prominent on the right side. No pleural effusions. There is mild hilar adenopathy and there is also an enlarged subcarina l lymph nodewhich is located to the right of the esophagus measurements as above. 3. No significant acute findings in the abdomen and pelvis. 4. No ascites Report called by myself to ER physician 08/31/2021 at 5:05 p.m. RADIATION DOSE DELIVERED: 1,432.83mGy.cm Total DLP DATA REPOSITORY: All CT scans at this facility are submitted to the National Radiology Data Registry (NRDR) Dose Index Registry (DIR) with the [employer] ([employer]). RADIATION OPTIMIZATION: All CT scans at this facility use at least one of these dose optimization te chniques: automated exposure control; mA and/or kV adjustment per patient size (includes targeted exa ms where dose is matched to clinical indication); or iterative reconstruction.
[2021-08-31] MEDS: FAMOTIDINE 20 MG/50 ML BAG 200 MG IVPB (16:59)
--- NOTE | 2021-08-31 18:47 | NUR.NOTE ---
Referral [facility] for epigastric pain, prob EGD,[facility] within a couple of weeks. Referral given to Care Management to establish care, follow up pneumonia, needs MRI lumbar spine for leg pain, weakness, needs repeat xray for lymph nodes in chest within 1 week. Qian Harrison Nursing Note:
[2021-08-31] MEDS: Amoxicillin 875/Clav. 125 TAB PO (19:30)
[2021-08-31] MEDS: Amox. 875/Clav. 125, 2 TABS/BTL 1 TAB PO (19:31)
== END 2021-08-31 19:25 | disposition home or self-care (01) ==
PROVIDERS: Emergency Provider Physician Assistant; PCP Family Medicine
DX: R10.13 Epigastric pain (principal); J18.9 Pneumonia, unspecified organism; M79.604 Pain in right leg; M79.605 Pain in left leg; R53.1 Weakness
CPT/HCPCS: 36415; 71275; 74177; 80053; 83690; 93005; 99285; 76705; 83735; 84484; 85025; 93010; 99284; J0131; J2405; J3490

== ENCOUNTER 2021-11-22 18:25 | Outpatient (REF) | payer MEDICAID, SELFPAY ==
[2021-11-22 14:56] LABS: Anion Gap 11.7 mmol/L (3-11); BUN 16 mg/dL (7-18); CO2 23.3 mmol/L (21.0-32.0); Calcium 8.7 mg/dL (8.5-10.1); Calculated LDL 102 mg/dL (<100); Chloride 107 mmol/L (98-107); Cholesterol 154 mg/dL (<200); Glucose 103 mg/dL (74-106); HDL Cholesterol 39 mg/dL (40-60); Potassium 4.5 mmol/L (3.5-5.1); Sodium 142 mmol/L (136-145); TSH 1.22 uIU/mL (0.36-3.74); Triglyceride 66 mg/dL (<150)
[2021-11-23 10:16] LABS: Hepatitis C Ab w Rflx HCV PCR Negative (Negative)
[2021-11-23 10:33] LABS: HIV-1/2 Ag & Ab Screen Negative (Negative)
== END 2021-11-22 18:26 | disposition home or self-care (01) ==
LOC: NCHCN 18:25
PROVIDERS: PCP Family Medicine; Visit Provider Nurse Practitioner Family
DX: Z13.220 Encounter for screening for lipoid disorders (principal); Z13.29 Encounter for screening for other suspected endocrine disorder; Z11.4 Encounter for screening for human immunodeficiency virus [HIV]; Z11.59 Encounter for screening for other viral diseases; Z00.00 Encounter for general adult medical examination without abnormal findings
CPT/HCPCS: 80048; 80061; 86803; 87389; 84443

== ENCOUNTER 2022-04-25 08:44 | Emergency (ER) | payer MEDICAID, SELFPAY ==
[2022-04-25 08:51] VITALS: BP 141/67; PULSE 74; RESP 18; TEMP 36.6; O2SAT 98
--- NOTE | 2022-04-25 10:00 | DI.CT_ITS ---
Exam(s) CT LUMBAR SPINE WO EXAM: CT LUMBAR SPINE WO CLINICAL HISTORY: trauma, low back pain. TECHNIQUE: Imaging Protocol: Axial computed tomography images with coronal and sagittal reformatted images were created and reviewed COMPARISON: No exams were available for comparison FINDINGS: Bones: There are no fractures, listhesis, nor pars defects. There are no lytic osseous lesions evide nt. INDIVIDUAL LEVELS: All the disc spaces exhibit normal height. Some vacuum phenomena seen in the ante rior aspect of T12-L1 disc space. T12-L1:No disc herniation nor canal stenosis. Facet joints unremarkable. No foraminal stenosis. L1-2: No disc herniation nor canal stenosis. Facet joints unremarkable. No foraminal stenosis. L2-3: No disc herniation nor canal stenosis. Facet joints unremarkable. No Foraminal stenosis L3-4: No disc herniation nor canal stenosis. Facet joints unremarkable. No foraminal stenosis. L4-5: No disc herniation nor canal stenosis. L5-S1: No disc herniation or canal stenosis. The visualized sacroiliac joints and sacrum appear unremarkable. PARASPINAL SOFT TISSUES: Visualized paraspinal tissues appear unremarkable. IMPRESSION: 1. No fractures. No listhesis. No disc space narrowing. No obvious disc herniations. 2. No facet arthropathy nor facet malalignment. 3. No acute compromise of the lumbosacral spinal canal. Report called by myself to ER physician RADIATION DOSE DELIVERED: 685.16mGy.cm Total DLP DATA REPOSITORY: All CT scans at this facility are submitted to the National Radiology Data Registry (NRDR) Dose Index Registry (DIR) with the [employer] ([employer]). RADIATION OPTIMIZATION: All CT scans at this facility use at least one of these dose optimization te chniques: automated exposure control; mA and/or kV adjustment per patient size (includes targeted exa ms where dose is matched to clinical indication); or iterative reconstruction.
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
[2022-04-25] MEDS: Ibuprofen 600 MG TAB PO (10:15)
== END 2022-04-25 11:14 ==
LOC: ER 08:51
PROVIDERS: Emergency Provider Student in an Organized Health Care Education/Training Program; PCP Physician Assistant Medical
DX: G89.11 Acute pain due to trauma (principal); M54.50 Low back pain, unspecified; M79.605 Pain in left leg; F17.210 Nicotine dependence, cigarettes, uncomplicated; X50.0XXA Overexertion from strenuous movement or load, initial encounter
CPT/HCPCS: 99284; 72131; 99282

== ENCOUNTER 2022-07-23 22:32 | Emergency (ER) | payer MEDICAID, SELFPAY ==
--- NOTE | 2022-07-23 22:30 | RT.EKG_ITS ---
APPROVED REPORT Exam: Resting ECG Reason for Exam: chest pain Patient Location: E HR:106 bpm ECG Measurements Heart Rate 106 AXIS DC 148 P 16 QRSd 84 QRS 86 QT 309 T 30 QTc 410 Conclusion Sinus tachycardia...rate> 99 Physician: no stemi
[2022-07-23 22:36] VITALS: BP 107/73; PULSE 100; RESP 24; O2SAT 96
[2022-07-23 22:44] VITALS: TEMP 38.5
[2022-07-23] MEDS: Ketorolac 15 MG/ML VIAL IVP (23:34)
[2022-07-23] MEDS: DOXYCYCLINE 100 MG in Normal Saline 100 ML IVPB (23:37)
[2022-07-23 23:38] LABS: Abs Immature Grans 0.15 10^3/uL (0.0-0.06); Absolute Basophil Count 0.03 10^3/uL (0.0-0.2); Absolute Eosinophil Count 0.08 10^3/uL (0.0-0.7); Absolute Monocyte Count 0.88 10^3/uL (0.1-0.8); Absolute Neutrophil Count 7.47 10^3/uL (1.2-6.7); Basophils % 0.3; Eosinophils % 0.8; HCT 43.2 % (40.0-50.0); HGB 14.7 g/dL (13.5-17.5); Immature Grans % 1.6; Lymphocytes % 10.4; MCH 31.3 pg (27.0-33.0); MCV 92 fL (80-95); Monocytes % 9.2; Neutrophils % 77.7; Platelet Count 230 10^3/uL (130-400); RBC 4.69 10^6/uL (4.36-5.78); RDW 13.6 % (11.8-14.1); RDW-SD 46.4 fL; WBC 9.61 10^3/uL (4.4-10.8)
[2022-07-23 23:53] LABS: COVID-19 PCR Negative (Negative); Influenza A PCR Positive (Negative); Influenza B PCR Negative (Negative); RSV PCR Negative (Negative)
[2022-07-23 23:54] LABS: Source Nasopharynx
[2022-07-23 23:57] LABS: Albumin 3.5 g/dL (3.4-5.0); Alkaline Phosphatase 67 U/L (46-116); Anion Gap 9.2 mmol/L (3-11); BUN 12 mg/dL (7-18); Bilirubin, Total 0.3 mg/dL (0.2-1.0); CO2 25.8 mmol/L (21.0-32.0); CREATININE 1.1 mg/dL (0.70-1.30); Calcium 7.8 mg/dL (8.5-10.1); Chloride 102 mmol/L (98-107); Estimated GFR 87.03 (mL/min/1.73m2); Glucose 130 mg/dL (74-106); Potassium 4.2 mmol/L (3.5-5.1); Sodium 137 mmol/L (136-145); Troponin I < 50 ng/L (<or=60)
[2022-07-24] MEDS: Normal Saline 1,000 ML 1000 ML IV
[2022-07-24 00:15] LABS: Total Protein 6.7 g/dL (6.4-8.2)
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
[2022-07-24 00:43] LABS: AST 16 U/L (15-37)
[2022-07-24 00:55] VITALS: BP 142/70; PULSE 72; RESP 16; TEMP 36.9; O2SAT 98
[2022-07-24] MEDS: Benzonatate 100 MG CAP PO (00:58)
[2022-07-24 01:30] LABS: ALT 31 U/L (16-63)
== END 2022-07-24 01:00 | disposition home or self-care (01) ==
PROVIDERS: Emergency Provider Student in an Organized Health Care Education/Training Program; PCP Nurse Practitioner Family
DX: J10.00 Influenza due to other identified influenza virus with unspecified type of pneumonia (principal); F90.9 Attention-deficit hyperactivity disorder, unspecified type; Z20.822 Contact with and (suspected) exposure to COVID-19
CPT/HCPCS: 76604; 80053; 87637; 93005; 96365; 96375; 99284; 84484; 85025; 93010; J1885

== ENCOUNTER 2022-11-21 16:07 | Emergency (ER) | payer MEDICAID, SELFPAY ==
[2022-11-21 16:10] VITALS: BP 122/70; PULSE 94; RESP 16; TEMP 37.1; O2SAT 97
--- NOTE | 2022-11-21 16:30 | DI.RAD_ITS ---
Exam(s) XR RIBS RT W PA LAT CHEST EXAM: XR RIBS RT W PA LAT CHEST CLINICAL HISTORY: pain right posterior thorax TECHNIQUE: 2D digital imaging was performed. Images were obtained. COMPARISON: No exams were available for comparison FINDINGS: MEDIASTINUM: Normal. HEART: Normal. PULMONARY VASCULATURE: Normal. LUNGS: Clear. PLEURAL SPACE: No pleural effusion or pneumothorax. BONE:Normal. RIGHT RIBS: Normal. OTHER FINDINGS:Normal. IMPRESSION: 1. No acute pulmonary findings. 2. Unremarkable right ribs. DATA REPOSITORY: RADIATION DOSE DELIVERED:
[2022-11-21] MEDS: diazePAM 5 MG TAB PO (16:45)
[2022-11-21] MEDS: Acetaminophen 500 MG TAB 1000 MG PO (16:45)
[2022-11-21 17:48] VITALS: BP 115/73; PULSE 88; RESP 18; TEMP 36.8; O2SAT 96
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
== END 2022-11-21 17:52 | disposition home or self-care (01) ==
PROVIDERS: Emergency Provider Physician Assistant; PCP Nurse Practitioner Family
DX: S46.911A Strain of unspecified muscle, fascia and tendon at shoulder and upper arm level, right arm, initial encounter (principal); X58.XXXA Exposure to other specified factors, initial encounter
CPT/HCPCS: 99283; 71046; 71100; 99284

== ENCOUNTER 2022-11-22 19:15 | Emergency (ER) | payer MEDICAID, SELFPAY ==
[2022-11-22 19:21] VITALS: BP 150/103; PULSE 102; RESP 20; TEMP 37.4; O2SAT 96
--- NOTE | 2022-11-22 19:30 | RT.EKG_ITS ---
APPROVED REPORT Exam: Resting ECG Reason for Exam: chest pain Patient Location: E HR:107 bpm ECG Measurements Heart Rate 107 AXIS HI 137 P 39 QRSd 85 QRS 82 QT 333 T 27 QTc 443 Conclusion Sinus tachycardia...rate> 99 I have reviewed and interpreted ECG and agree with software generated interpretation. Physician: no stemi
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
[2022-11-22 19:58] LABS: Abs Immature Grans 0.14 10^3/uL (0.0-0.06); Absolute Eosinophil Count 0.12 10^3/uL (0.0-0.7); Absolute Lymphocyte Count 1.17 10^3/uL (1.2-3.4); Absolute Monocyte Count 0.63 10^3/uL (0.1-0.8); Absolute Neutrophil Count 9.15 10^3/uL (1.2-6.7); Basophils % 0.4; Eosinophils % 1.1; HCT 47.5 % (40.0-50.0); HGB 16.3 g/dL (13.5-17.5); Immature Grans % 1.2; Lymphocytes % 10.4; MCH 30.3 pg (27.0-33.0); MCHC 34.3 % (32.0-36.0); MCV 88 fL (80-95); MPV 8.3 fL (8.0-11.0); Monocytes % 5.6; Neutrophils % 81.3; Platelet Count 252 10^3/uL (130-400); RBC 5.38 10^6/uL (4.36-5.78); RDW 13.5 % (11.8-14.1); RDW-SD 43.8 fL; WBC 11.25 10^3/uL (4.4-10.8)
[2022-11-22 20:00] LABS: Absolute Basophil Count 0.05 10^3/uL (0.0-0.2)
[2022-11-22 20:15] LABS: ALT 33 U/L (16-63); AST 13 U/L (15-37); Albumin 3.8 g/dL (3.4-5.0); Alkaline Phosphatase 73 U/L (46-116); Anion Gap 9.8 mmol/L (3-11); BUN 13 mg/dL (7-18); Bilirubin, Total 0.3 mg/dL (0.2-1.0); CO2 25.2 mmol/L (21.0-32.0); Calcium 8.9 mg/dL (8.5-10.1); Chloride 105 mmol/L (98-107); Estimated GFR 97.58 (mL/min/1.73m2); Glucose 111 mg/dL (74-106); Magnesium 1.8 mg/dL (1.8-2.4); Potassium 4.1 mmol/L (3.5-5.1); Sodium 140 mmol/L (136-145); Total Protein 7.7 g/dL (6.4-8.2); Troponin I < 50 ng/L (<or=60)
[2022-11-22] MEDS: HYDROmorphone 2 MG/ML SYR 1 MG IVP (20:23)
[2022-11-22] MEDS: ACETAMINOPHEN 1,000 MG/100 ML BTL 400 MG IVPB (20:24)
[2022-11-22 20:30] LABS: D-Dimer 348 ng/mlFEU (<500)
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
[2022-11-22 20:39] LABS: COVID-19 PCR Negative (Negative); Influenza A PCR Negative (Negative); Influenza B PCR Negative (Negative); RSV PCR Negative (Negative)
[2022-11-22] MEDS: Normal Saline Flush 10 ML SYR IVP (20:49)
[2022-11-22 20:59] LABS: Source Nasopharynx
[2022-11-22] MEDS: Omnipaque 350 MG/ML 100 ML BTL IJ (21:13)
[2022-11-22] MEDS: Normal Saline - Diluent 50 ML VIAL IJ (21:17)
[2022-11-22 22:01] VITALS: BP 127/80; PULSE 86; TEMP 36.5; O2SAT 96
--- NOTE | 2022-11-22 22:25 | DI.VRAD_ITS ---
PROCEDURE INFORMATION: Exam: CT Chest With Contrast; Diagnostic Exam date and time: 11/22/2022 9:12 PM Age: 42 years old Clinical indication: Other: Right-sided chest pain/ mild-trauma TECHNIQUE: Imaging protocol: Diagnostic computed tomography of the chest with contrast. 3D rendering (Not supervised by radiologist): MIP and/or 3D reconstructed images were created by the technologist. Radiation optimization: All CT scans at this facility use at least one of these dose optimization techniques: automated exposure control; mA and/or kV adjustment per patient size (includes targeted exams where dose is matched to clinical indication); or iterative reconstruction. Contrast material: OMNIPAQUE 350; Contrast volume: 70 ml; Contrast route: INTRAVENOUS (IV); COMPARISON: CT CHEST PE ABD PELVIS W 08/31/2021 4:32 PM FINDINGS: Lungs: Moderate size bilateral dependent areas of nonspecific consolidation, worse at the lung bases. Pleural spaces: There is no pleural effusion or pneumothorax. Heart: The heart is normal in size. There are no pericardial fluid collections. Esophagus: No esophageal thickening. Mediastinal space: There are no enlarged mediastinal lymph nodes or masses. Lymph nodes: In the right lung hilum, there is a 17 x 12 mm lymph node, larger than on the comparison study. In the right subcarinal space, there is an 18 x 13 mm lymph node that appears relatively stable. Vasculature: There is no thoracic aortic aneurysm or dissection. The visualized central pulmonary arteries appear unremarkable. Liver: The liver is normal in size. There are no enhancing liver masses. Gallbladder and bile ducts: The gallbladder is normal. No gallstones are identified. Pancreas: The pancreas is normal. Bones/joints: No acute fracture. Mild chronic appearing inferior endplate compression fracture of T9. There are mild chronic superior endplate compression fractures of T3, T4 and T5. Soft tissues: Unremarkable. IMPRESSION: 1. No acute fracture. Multiple mild chronic and chronic appearing thoracic vertebral body fractures as described. 2. Worsening bilateral areas of dependent consolidation, most prominent at the lung bases. These could represent atelectasis or pneumonia. However, the presence of enlarged hilar mediastinal lymph nodes suggests infection. Given the dependent location of these areas of consolidation, aspiration related pneumonia may be considered. Dictated and Authenticated by: Alvino Buck MD. Ordering:DONY Pack MD
[2022-11-22] MEDS: Doxycycline Hyclate 100 MG CAP PO (22:49)
[2022-11-22] MEDS: Lidocaine 5% Patch 1 PATCH TP (22:49)
[2022-11-22] MEDS: Cyclobenzaprine 10 MG TAB PO (22:49)
[2022-11-22] MEDS: Cyclobenzaprine 10 MG TAB, 3 TABS/BTL PO (22:50)
[2022-11-22] MEDS: HYDROmorphone 2 MG/ML SYR 0.5 MG IVP (22:50)
== END 2022-11-22 23:04 | disposition home or self-care (01) ==
PROVIDERS: Emergency Provider Nurse Practitioner Family; PCP Nurse Practitioner Family
DX: J18.9 Pneumonia, unspecified organism (principal); S29.011A Strain of muscle and tendon of front wall of thorax, initial encounter; R00.0 Tachycardia, unspecified; D72.829 Elevated white blood cell count, unspecified; X58.XXXA Exposure to other specified factors, initial encounter; Z20.822 Contact with and (suspected) exposure to COVID-19
CPT/HCPCS: 80053; 87637; 93005; 96365; 96375; 96376; 99285; 71260; 83735; 84484; 85025; 85379; 93010; 99284; J0131; J1170; J3490

== ENCOUNTER 2023-10-18 11:34 | Emergency (ER) | payer MEDICAID, SELFPAY ==
[2023-10-18 11:38] VITALS: BP 128/84; PULSE 73; RESP 18; TEMP 36.6; O2SAT 97
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
== END 2023-10-18 12:24 | disposition home or self-care (01) ==
PROVIDERS: Emergency Provider Emergency Medicine; PCP Nurse Practitioner Family
DX: J02.9 Acute pharyngitis, unspecified (principal); F17.210 Nicotine dependence, cigarettes, uncomplicated
CPT/HCPCS: 99283

== ENCOUNTER 2024-01-09 10:38 | Emergency (ER) | payer MEDICAID, SELFPAY ==
[2024-01-09 10:41] VITALS: BP 141/100; PULSE 85; RESP 18; TEMP 36.8; O2SAT 100
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
== END 2024-01-09 12:33 | disposition home or self-care (01) ==
PROVIDERS: Emergency Provider Nurse Practitioner Family; PCP Nurse Practitioner Family
DX: M79.621 Pain in right upper arm (principal); F17.210 Nicotine dependence, cigarettes, uncomplicated; Z23 Encounter for immunization; V38.5XXA Driver of three-wheeled motor vehicle injured in noncollision transport accident in traffic accident, initial encounter; Y92.89 Other specified places as the place of occurrence of the external cause
CPT/HCPCS: 90471; 99283; 73060; 73090; 73130

== ENCOUNTER 2024-04-21 22:25 | Emergency (ER) | payer MEDICAID, SELFPAY ==
[2024-04-21 22:29] VITALS: BP 147/73; PULSE 90; RESP 18; TEMP 36.9; O2SAT 97
[2024-04-21 22:32] VITALS: BP 147/73; PULSE 90; TEMP 36.9; O2SAT 97
[2024-04-21] MEDS: ACETAMINOPHEN 1,000 MG/100 ML BTL 400 MG IVPB (22:35)
[2024-04-21] MEDS: Ketorolac 15 MG/ML VIAL IVP (22:36)
--- NOTE | 2024-04-21 23:00 | DI.CT_ITS ---
Exam(s) CT ABDOMEN PELVIS W EXAM: CT ABDOMEN PELVIS W CLINICAL HISTORY: left flank pain, + CVA tenderness. TECHNIQUE: Imaging Protocol: Axial computed tomography images with coronal and sagittal reformatted images were created and reviewed CONTRAST MATERIAL: Intravenous: Omnipaque 350 Contrast volume:100 ml Oral: / no COMPARISON: CT CT CHEST PE ABD PELVIS W from 08/31/2021 FINDINGS: ABDOMEN and PELVIS: Lung Bases: No acute findings. Liver: Normal density. No suspicious mass. Gallbladder and biliary tract: No radiodense calculus. No biliary dilation. Pancreas: Normal density. No abnormal calcifications or inflammatory process. No evidence of mass. Spleen: Normal. Kidneys: Normal size, contour and axis. No radiodense stones. No obstructive uropathy. No suspicious masses seen. Adrenal glands: No masses seen. Vasculature: Abdominal aorta non-dilated. Soft tissues: Unremarkable. Bladder: No gross wall thickening. No calculi.No focal mass. Bowel: No obstruction. No bowel wall thickening. Appendix normal. Peritoneal cavity: No ascites. No focal collection. No mesenteric inflammatory response. Bones: Unremarkable for age. Reproductive organs: Unremarkable. Lymph nodes: No pathologically enlarged lymph nodes. IMPRESSION:: No acute abnormality in the abdomen or pelvis. RADIATION DOSE DELIVERED: 348.13mGy.cm Total DLP DATA REPOSITORY: All CT scans at this facility are submitted to the National Radiology Data Registry (NRDR) Dose Index Registry (DIR) with the [employer] ([employer]). RADIATION OPTIMIZATION: All CT scans at this facility use at least one of these dose optimization te chniques: automated exposure control; mA and/or kV adjustment per patient size (includes targeted exa ms where dose is matched to clinical indication); or iterative reconstruction.
[2024-04-21 23:06] LABS: Abs Immature Grans 0.08 10^3/uL (0.0-0.06); Absolute Basophil Count 0.03 10^3/uL (0.0-0.2); Absolute Eosinophil Count 0.23 10^3/uL (0.0-0.7); Absolute Lymphocyte Count 3.48 10^3/uL (1.2-3.4); Absolute Monocyte Count 0.73 10^3/uL (0.1-0.8); Absolute Neutrophil Count 5.09 10^3/uL (1.2-6.7); Basophils % 0.3 %; Eosinophils % 2.4 %; HCT 45.2 % (40.0-50.0); HGB 15.4 g/dL (13.5-17.5); Immature Grans % 0.8 %; Lymphocytes % 36.1 %; MCH 30.6 pg (27.0-33.0); MCHC 34.1 % (32.0-36.0); MCV 90 fL (80-95); MPV 8.5 fL (8.0-11.0); Monocytes % 7.6 %; Neutrophils % 52.8 %; Platelet Count 260 10^3/uL (130-400); RBC 5.04 10^6/uL (4.36-5.78); RDW-SD 42.9 fL; WBC 9.64 10^3/uL (4.4-10.8)
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
[2024-04-21] MEDS: Methocarbamol 750 MG TAB 1500 MG PO (23:10)
[2024-04-21] MEDS: Lidocaine 5% Patch 1 PATCH TP (23:10)
[2024-04-21] MEDS: Omnipaque 350 MG/ML 100 ML BTL IJ (23:12)
[2024-04-21] MEDS: Normal Saline Flush 10 ML SYR IVP (23:13)
[2024-04-21] MEDS: Normal Saline - Diluent 50 ML VIAL IJ (23:13)
[2024-04-21 23:20] LABS: ALT 24 U/L (16-63); AST 13 U/L (15-37); Albumin 3.7 g/dL (3.4-5.0); Alkaline Phosphatase 95 U/L (46-116); Anion Gap 7.6 mmol/L (3-11); BUN 12 mg/dL (7-18); Bilirubin, Total 0.21 mg/dL (0.2-1.0); CO2 26.4 mmol/L (21.0-32.0); CREATININE 0.9 mg/dL (0.70-1.30); Calcium 9.2 mg/dL (8.5-10.1); Chloride 105 mmol/L (98-107); Estimated GFR 109.36 (mL/min/1.73m2); Glucose 116 mg/dL (74-106); Potassium 3.5 mmol/L (3.5-5.1); Sodium 139 mmol/L (136-145); Total Protein 7.3 g/dL (6.4-8.2)
[2024-04-21] MEDS: Normal Saline 1,000 ML 1000 ML IV (23:36)
[2024-04-21 23:37] VITALS: BP 123/76; PULSE 74; RESP 14; O2SAT 96
--- NOTE | 2024-04-21 23:38 | NUR.NOTE ---
Pt still unable to urinate, getting fluids, FPJ
--- NOTE | 2024-04-21 23:44 | DI.VRAD_ITS ---
PROCEDURE INFORMATION: Exam: CT Abdomen And Pelvis With Contrast Exam date and time: 04/21/2024 11:10 PM Age: 44 years old Clinical indication: Other: L flank; Patient HX: Left flank pain, + CVA tenderness TECHNIQUE: Imaging protocol: Computed tomography of the abdomen and pelvis with contrast. Radiation optimization: All CT scans at this facility use at least one of these dose optimization techniques: automated exposure control; mA and/or kV adjustment per patient size (includes targeted exams where dose is matched to clinical indication); or iterative reconstruction. Contrast material: OMNIPAQUE 350; Contrast volume: 100 ml; Contrast route: INTRAVENOUS (IV); COMPARISON: CT CHEST PE ABD PELVIS W 08/31/2021 4:32 PM FINDINGS: Minimal basilar subsegmental atelectasis Liver: Fatty infiltration No mass. Gallbladder and biliary ducts: Contracted. No calcified stones. No ductal dilation. Pancreas: Normal. No ductal dilation. Spleen: Normal. No splenomegaly. Adrenal glands: Normal. No mass. Kidneys and ureters: Normal. No hydronephrosis. Stomach and bowel: Unremarkable. No obstruction. No mucosal thickening. Appendix: No evidence of appendicitis. Intraperitoneal space: Unremarkable. No free air. No significant fluid collection. Vasculature: Unremarkable. No abdominal aortic aneurysm. Lymph nodes: Unremarkable. No enlarged lymph nodes. Urinary bladder: Unremarkable as visualized. Reproductive: Unremarkable as visualized. Bones/joints: Unremarkable. No acute fracture. Soft tissues: Unremarkable. IMPRESSION: No acute findings. Dictated and Authenticated by: Adonay Romero MD. Ordering:FRANK Mcqueen MD
[2024-04-22 00:14] LABS: Bilirubin Negative (Negative); Blood Negative (Negative); Clarity Clear (Clear); Glucose Negative (Negative); Ketones Negative (Negative); Leukocyte Esterase Negative (Negative); Nitrite Negative (Negative); Urobilinogen 0.2 mg/dL (Up to 0.2); pH 5.5 (5-8)
[2024-04-22 00:28] VITALS: BP 127/74; PULSE 76; RESP 14; O2SAT 96
[2024-04-22] MEDS: Methocarbamol 500 MG TAB 1000 MG PO (00:35)
== END 2024-04-22 00:43 | disposition home or self-care (01) ==
PROVIDERS: Emergency Provider Student in an Organized Health Care Education/Training Program; PCP Nurse Practitioner Family
DX: R10.9 Unspecified abdominal pain (principal); R30.0 Dysuria; F17.210 Nicotine dependence, cigarettes, uncomplicated; F17.290 Nicotine dependence, other tobacco product, uncomplicated
CPT/HCPCS: 36415; 80053; 96361; 96365; 96375; 99285; 74177; 81003; 85025; 99284; J0131; J1885; J3490

== ENCOUNTER 2024-06-17 14:32 | Emergency (ER) | payer MEDICAID, SELFPAY ==
[2024-06-17 14:37] VITALS: BP 114/47; PULSE 87; RESP 16; TEMP 36.4; O2SAT 97
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
[2024-06-17] MEDS: Ketorolac 15 MG/ML VIAL IM (15:41)
--- NOTE | 2024-06-17 16:03 | DI.RAD_ITS ---
Exam(s) XR KNEE RT 3V AP,LAT,EUSEBIO XR ANKLE RT COMPLETE XR TIB/FIB RT EXAM: XR TIB/FIB RT CLINICAL HISTORY: pain s/p fall. TECHNIQUE: 2D digital imaging was performed. Two views of the tibia and fibula. Three views of the ankle. Three views of the knee. COMPARISON: CR XR ANKLE RT COMPLETE from 06/17/2024 CR XR KNEE RT 3V AP,LAT,EUSEBIO from 06/17/2024 FINDINGS: BONES: No acute fracture is present. No bony destructive lesion is seen. The knee and ankle joints ar e unremarkable. No joint space narrowing. No ankle mortise widening. SOFT TISSUE: Normal. IMPRESSION: Negative right knee, leg and ankle. DATA REPOSITORY: RADIATION DOSE DELIVERED:
--- NOTE | 2024-06-19 08:36 | NUR.NOTE ---
Accessed Pt chart to complete filling out the [facility] paperwork.
== END 2024-06-17 17:22 | disposition home or self-care (01) ==
PROVIDERS: Emergency Provider Emergency Medicine; PCP Nurse Practitioner Family
DX: S93.401A Sprain of unspecified ligament of right ankle, initial encounter (principal); S83.91XA Sprain of unspecified site of right knee, initial encounter; W18.31XA Fall on same level due to stepping on an object, initial encounter; Y93.01 Activity, walking, marching and hiking; Y92.89 Other specified places as the place of occurrence of the external cause
CPT/HCPCS: 73562; 96372; 99284; 73590; 73610; 99283; J1885

== ENCOUNTER 2024-07-07 13:04 | Emergency (ER) | payer MEDICAID, SELFPAY ==
[2024-07-07 13:08] VITALS: BP 113/69; PULSE 74; RESP 18; TEMP 36.5; O2SAT 97
--- NOTE | 2024-07-07 13:15 | DI.RAD_ITS ---
Exam(s) XR FINGER RT LITTLE EXAM: XR FINGER RT LITTLE CLINICAL HISTORY: R/O Foreign body. TECHNIQUE: 2D digital imaging was performed. COMPARISON: No exams were available for comparison FINDINGS: 3 views No evidence of fracture or dislocation no abnormal soft tissue calcifications. There is no radiopaqu e foreign body. Bone density is normal. No osseous lesions. No erosions. IMPRESSION: No acute osseous findings on these three views of the right 5th finger. DATA REPOSITORY: RADIATION DOSE DELIVERED:
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
[2024-07-07] MEDS: Amox. 875/Clav. 125, 2 TABS/BTL 1 TAB PO (13:28)
[2024-07-07] MEDS: Amoxicillin 875/Clav. 125 TAB PO (13:28)
[2024-07-07 14:10] VITALS: BP 113/69; PULSE 74; RESP 18; TEMP 36.5; O2SAT 97
--- NOTE | 2024-07-07 14:11 | DI.VRAD_ITS ---
PROCEDURE INFORMATION: Exam: XR Left Finger(s) Exam date and time: 07/07/2024 1:38 PM Age: 44 years old Clinical indication: Other: R/O foreign body TECHNIQUE: Imaging protocol: Radiologic exam of the left fingers. Views: Minimum 2 views. COMPARISON: No relevant prior studies available. FINDINGS: Bones/joints: No acute fracture or dislocation of the right 5th finger identified. There are no periosteal reactions. There is no significant bony degenerative change. Soft tissues: No soft tissue gas or radiodense foreign body is identified. IMPRESSION: 1. No acute bony change identified. 2. No radiodense foreign body is identified. Dictated and Authenticated by: Yonatan Myers MD. Ordering:ROLF Corbin MD
== END 2024-07-07 14:11 | disposition home or self-care (01) ==
PROVIDERS: Emergency Provider Registered Nurse Emergency; PCP Nurse Practitioner Family
DX: L03.011 Cellulitis of right finger (principal); F17.210 Nicotine dependence, cigarettes, uncomplicated
CPT/HCPCS: 99283; 73140

== ENCOUNTER 2024-07-21 12:12 | Emergency (ER) | payer MEDICAID, SELFPAY ==
[2024-07-21 12:20] VITALS: BP 130/72; PULSE 74; RESP 16; TEMP 36.7; O2SAT 98
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
[2024-07-21] MEDS: Ketorolac 10 MG TAB PO (12:40)
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
== END 2024-07-21 15:01 | disposition home or self-care (01) ==
PROVIDERS: Emergency Provider Emergency Medicine; PCP Nurse Practitioner Family
DX: V48.7XXA Person on outside of car injured in noncollision transport accident in traffic accident, initial encounter; F17.200 Nicotine dependence, unspecified, uncomplicated; Z59.811 Housing instability, housed, with risk of homelessness; S30.0XXA Contusion of lower back and pelvis, initial encounter; S20.224A Contusion of middle back wall of thorax, initial encounter
CPT/HCPCS: 99284; 72128; 72131; 99283

== ENCOUNTER 2024-09-21 14:41 | Emergency (ER) | payer MEDICAID, SELFPAY ==
[2024-09-21] VITALS (20 sets, daily range): BP systolic 110–136; BP diastolic 60–96; PULSE 79–98; RESP 13–22; O2SAT 95–99
--- NOTE | 2024-09-21 14:30 | RT.EKG_ITS ---
APPROVED REPORT Exam: Resting ECG Reason for Exam: AMS Patient Location: E HR:93 bpm ECG Measurements Heart Rate 93 AXIS NE 152 P 37 QRSd 86 QRS 66 QT 347 T 46 QTc 431 Conclusion Sinus rhythm...normal P axis, V-rate 60- [address] segment or T wave abnormalities to suggest occlusive SD
[2024-09-21] MEDS: Normal Saline 1,000 ML 1000 ML IV (15:21)
[2024-09-21] MEDS: Ondansetron 4 MG/2 ML VIAL IVP (15:21)
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
[2024-09-21 15:29] LABS: HCT 51.8 % (40.0-50.0); HGB 17.6 g/dL (13.5-17.5); MCH 30.7 pg (27.0-33.0); MCV 90 fL (80-95); MPV 8.2 fL (8.0-11.0); Platelet Count 265 10^3/uL (130-400); RBC 5.73 10^6/uL (4.36-5.78); RDW 13.2 % (11.8-14.1); RDW-SD 44.1 fL; WBC 17.64 10^3/uL (4.4-10.8)
[2024-09-21 15:46] LABS: Absolute Lymphocyte Count 1.94 10^3/uL (1.2-3.4); Absolute Monocyte Count 0.88 10^3/uL (0.1-0.8); Absolute Neutrophil Count 14.82 10^3/uL (1.2-6.7); Bands % 2 %; Diff Comment Manual Differential; RBC Morphology Normal
[2024-09-21 15:55] LABS: ALT 63 U/L (16-63); AST 27 U/L (15-37); Alkaline Phosphatase 78 U/L (46-116); Anion Gap 7.9 mmol/L (3-11); BUN 26 mg/dL (7-18); Bilirubin, Total 0.39 mg/dL (0.2-1.0); CO2 26.1 mmol/L (21.0-32.0); CREATININE 0.9 mg/dL (0.70-1.30); Calcium 8.9 mg/dL (8.5-10.1); Chloride 106 mmol/L (98-107); Estimated GFR 109.36 (mL/min/1.73m2); Glucose 100 mg/dL (74-106); Lipase 127 U/L (<78); Potassium 4.2 mmol/L (3.5-5.1); Sodium 140 mmol/L (136-145)
[2024-09-21 16:07] LABS: NT-proBNP < 5 pg/mL (<300); Troponin I < 4 ng/L (<or=76)
[2024-09-21] MEDS: Ondansetron O.D.T. 4 MG TABEF, 3 TABS/BTL PO (17:10)
== END 2024-09-21 17:13 | disposition home or self-care (01) ==
PROVIDERS: Emergency Provider Student in an Organized Health Care Education/Training Program; PCP Nurse Practitioner Family
DX: R55 Syncope and collapse (principal); R42 Dizziness and giddiness; F17.210 Nicotine dependence, cigarettes, uncomplicated; F17.290 Nicotine dependence, other tobacco product, uncomplicated
CPT/HCPCS: 80053; 82962; 83690; 87426; 93005; 96361; 96374; 99285; 83880; 84484; 85025; 93010; J2405

== ENCOUNTER 2024-11-18 12:41 | Emergency (ER) | payer MEDICAID, SELFPAY ==
--- NOTE | 2024-11-18 12:45 | DI.RAD_ITS ---
Exam(s) XR CHEST 2V PA LATERAL EXAM: XR CHEST 2V PA LATERAL CLINICAL HISTORY: Cough TECHNIQUE: 2D digital imaging was performed. Two views. COMPARISON: CR XR RIBS RT W PA LAT CHEST from 11/21/[address] CHEST W from 11/22/2022 FINDINGS: HEART: Normal size. Aorta: Not dilated. PULMONARY VASCULATURE: Normal. MEDIASTINUM: Unremarkable. LUNGS: Clear. PLEURAL SPACE: No pleural effusion or pneumothorax. BONE:Stable mild mid thoracic compression fracture. SOFT TISSUES: Unremarkable. IMPRESSION: No acute abnormality. DATA REPOSITORY: RADIATION DOSE DELIVERED:
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
[2024-11-18 12:48] VITALS: BP 132/82; PULSE 85; RESP 20; TEMP 37.2; O2SAT 95
[2024-11-18 12:50] VITALS: BP 132/82; PULSE 85; RESP 20; TEMP 37.2; O2SAT 95
[2024-11-18 13:17] VITALS: RESP 18
[2024-11-18 14:33] LABS: COVID-19 PCR Negative (Negative); Influenza A PCR Positive (Negative); Influenza B PCR Negative (Negative); RSV PCR Negative (Negative)
[2024-11-18 14:41] LABS: Source Nasopharynx
== END 2024-11-18 14:21 | disposition home or self-care (01) ==
PROVIDERS: Emergency Provider Emergency Medicine; PCP Nurse Practitioner Family
DX: J10.1 Influenza due to other identified influenza virus with other respiratory manifestations (principal); J40 Bronchitis, not specified as acute or chronic; F17.210 Nicotine dependence, cigarettes, uncomplicated
CPT/HCPCS: 87637; 99283; 71046

== ENCOUNTER 2024-11-25 08:40 | Emergency (ER) | payer MEDICAID, SELFPAY ==
--- NOTE | 2024-11-25 08:45 | DI.RAD_ITS ---
Exam(s) XR FOOT RT COMPLETE EXAM: XR FOOT RT COMPLETE CLINICAL HISTORY: fb, stepped on glass, forefoot. TECHNIQUE: 2D digital imaging was performed. COMPARISON: No exams were available for comparison FINDINGS: 3 views There appears to be a laceration on the plantar aspect of the foot in the forefoot region. There is a subtle finding at this level in the deep subcutaneous tissue which measures 2-3 mm and may be a for eign body versus is part of the soft tissue injury. There is no gas in the soft tissues. No osseous findings in the foot. IMPRESSION: Soft tissue finding as above. If there is high suspicion for foreign body than would recommend CT sc an. DATA REPOSITORY: RADIATION DOSE DELIVERED:
[2024-11-25 08:49] VITALS: BP 109/65; PULSE 69; RESP 16; TEMP 36.6; O2SAT 98
[2024-11-25] MEDS: Lidocaine/Epinephri/Tetracaine Topical Gel 3 ML TP (09:03)
--- NOTE | 2024-11-25 10:15 | DI.CT_ITS ---
Exam(s) CT LOWER EXTREMITY RT WO EXAM: CT LOWER EXTREMITY RT WO CLINICAL HISTORY: foreign body forefoot?. TECHNIQUE: Imaging Protocol: Axial computed tomography images with coronal and sagittal reformatted images were created and reviewed. CONTRAST MATERIAL: Intravenous: None COMPARISON: No exams were available for comparison FINDINGS: SOFT TISSUES: There is edema on the plantar surface of the foot. There is no gas in the soft tissues. Subtle focal skin irregularity on the plantar aspect of the foot in the region of the head of the 5t h metatarsal. No gas in the soft tissues at this level but there is edema at this level. There is no radiopaque foreign body. OSSEOUS: No fractures. No significant osseous lesions. No significant degenerative changes. IMPRESSION: Soft tissue swelling/edema on the plantar surface of the foot. No gas in the soft tissues. No radiopa que foreign body identified. No significant osseous findings in the foot. Report called to ER provider 11/25/2024 at 11:40 a.m. RADIATION DOSE DELIVERED: Total DLP DATA REPOSITORY: All CT scans at this facility are submitted to the National Radiology Data Registry (NRDR) Dose Index Registry (DIR) with the [employer] (ACR). RADIATION OPTIMIZATION: All CT scans at this facility use at least one of these dose optimization te chniques: automated exposure control; mA and/or kV adjustment per patient size (includes targeted exa ms where dose is matched to clinical indication); or iterative reconstruction.
[2024-11-25 11:29] VITALS: BP 110/66; PULSE 65; RESP 16; O2SAT 98
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
== END 2024-11-25 11:52 | disposition left against medical advice (07) ==
PROVIDERS: Emergency Provider Physician Assistant; PCP Nurse Practitioner Family
DX: S90.811A Abrasion, right foot, initial encounter (principal); F17.210 Nicotine dependence, cigarettes, uncomplicated; F17.290 Nicotine dependence, other tobacco product, uncomplicated; W22.8XXA Striking against or struck by other objects, initial encounter; Y93.89 Activity, other specified; Y92.89 Other specified places as the place of occurrence of the external cause
CPT/HCPCS: 99284; 73630; 73700; J2004

== ENCOUNTER 2025-02-16 12:13 | Emergency (ER) | payer MEDICAID, SELFPAY ==
[2025-02-16] VITALS (20 sets, daily range): BP systolic 138–143; BP diastolic 84–91; PULSE 48–96; RESP 13–22; O2SAT 95–99
--- NOTE | 2025-02-16 12:15 | RT.EKG_ITS ---
APPROVED REPORT Exam: Resting ECG Reason for Exam: chest pain/shoulder pain Patient Location: E HR:82 bpm ECG Measurements Heart Rate 82 AXIS RI 153 P 65 QRSd 88 QRS 79 QT 368 T 56 QTc 430 Conclusion Sinus rhythm, rate 82 No interval abnormalities No STEMI No significant changes from priors
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
--- NOTE | 2025-02-16 12:30 | DI.CT_ITS ---
Exam(s) CT HEAD WO EXAM: CT HEAD WO CLINICAL HISTORY: seizures, no hx. TECHNIQUE: Imaging Protocol: Axial computed tomography images with coronal and sagittal reformatted images were created and reviewed COMPARISON: CT CT HEAD CERVICAL SPINE WO from 09/16/2019 FINDINGS: There are no skull fractures. There is no fluid in the visualized paranasal sinuses. There is no evidence of intracranial hemorrhage, mass effect, or shift of midline structures. There are no extra-axial fluid collections. The ventricles are not enlarged or shifted and there is no blood within the ventricular system nor within the basal cisterns. IMPRESSION: No acute intracranial findings on this noninfused CT scan of the brain. Given the history here if clinically indicated follow-up MRI can be performed for added sensitivity/specificity RADIATION DOSE DELIVERED: 874.82mGy.cm Total DLP DATA REPOSITORY: All CT scans at this facility are submitted to the National Radiology Data Registry (NRDR) Dose Index Registry (DIR) with the [employer] (ACR). RADIATION OPTIMIZATION: All CT scans at this facility use at least one of these dose optimization techniques: automated exposure control; mA and/or kV adjustment per patient size (includes targeted exams where dose is matched to clinical indication); or iterative reconstruction.
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
[2025-02-16 12:47] LABS: Abs Immature Grans 0.36 10^3/uL (0.0-0.06); HCT 45.4 % (40.0-50.0); HGB 15.3 g/dL (13.5-17.5); Immature Grans % 4.8 %; MCH 30.2 pg (27.0-33.0); MCHC 33.7 % (32.0-36.0); MCV 90 fL (80-95); MPV 8.6 fL (8.0-11.0); Platelet Count 306 10^3/uL (130-400); RBC 5.06 10^6/uL (4.36-5.78); RDW 13.4 % (11.8-14.1); RDW-SD 44.1 fL; WBC 7.51 10^3/uL (4.4-10.8)
[2025-02-16] MEDS: Ketorolac 15 MG/ML VIAL IVP (12:48)
[2025-02-16] MEDS: Acetaminophen 500 MG TAB 1000 MG PO (12:49)
[2025-02-16] MEDS: Normal Saline - Diluent 50 ML VIAL IJ (13:06)
[2025-02-16 13:07] LABS: Glucose Negative (Negative)
[2025-02-16] MEDS: Omnipaque 350 MG/ML 100 ML BTL 75 ML IJ (13:07)
[2025-02-16 13:09] LABS: ALT 71 U/L (16-63); AST 39 U/L (15-37); Albumin 3.5 g/dL (3.4-5.0); Alkaline Phosphatase 105 U/L (46-116); Anion Gap 9.7 mmol/L (3-11); BUN 8 mg/dL (7-18); Bilirubin, Total 0.2 mg/dL (0.2-1.0); CO2 26.3 mmol/L (21.0-32.0); Calcium 8.9 mg/dL (8.5-10.1); Chloride 105 mmol/L (98-107); Estimated GFR 113.32 (mL/min/1.73m2); Glucose 137 mg/dL (74-106); Magnesium 1.6 mg/dL (1.8-2.4); Potassium 3.9 mmol/L (3.5-5.1); Sodium 141 mmol/L (136-145); Total Protein 7.3 g/dL (6.4-8.2); Troponin I 4 ng/L (<or=76)
[2025-02-16 13:23] LABS: Cannabinoids THC Positive (Negative); METHADONE URINE SCREEN Negative (Negative)
[2025-02-16] MEDS: MAGNESIUM SULFATE 2 GM/50 ML BAG IV_INF (13:42)
[2025-02-16] MEDS: oxyCODONE 5 MG TAB PO (13:42)
--- NOTE | 2025-02-16 13:45 | DI.VRAD_ITS ---
PROCEDURE INFORMATION: Exam: CT Head Without Contrast Exam date and time: 02/16/2025 12:54 PM Age: 44 years old Clinical indication: Other: Seizures, no HX TECHNIQUE: Imaging protocol: Computed tomography of the head without contrast. COMPARISON: CT HEAD CERVICAL SPINE WO 09/16/2019 3:55 PM FINDINGS: Brain: Normal. Cerebral ventricles: No ventriculomegaly. Paranasal sinuses: Visualized sinuses are unremarkable. No fluid levels. Mastoid air cells: Normal as visualized. Bones: Unremarkable. No acute fracture. Soft tissues: Unremarkable. IMPRESSION: No acute intracranial abnormality. Dictated and Authenticated by: Antoine Carrera MD. Orderin [facility] Jesse Rojo MD
[2025-02-16 13:51] LABS: Troponin I < 4 ng/L (<or=76)
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
== END 2025-02-16 16:27 | disposition home or self-care (01) ==
PROVIDERS: Emergency Provider Emergency Medicine; PCP Nurse Practitioner Family
DX: G40.909 Epilepsy, unspecified, not intractable, without status epilepticus (principal); R07.89 Other chest pain; M48.54XA Collapsed vertebra, not elsewhere classified, thoracic region, initial encounter for fracture; R45.851 Suicidal ideations; F17.210 Nicotine dependence, cigarettes, uncomplicated; F17.290 Nicotine dependence, other tobacco product, uncomplicated
CPT/HCPCS: 00123; 36415; 74177; 80053; 80307; 93005; 96127; 96374; 96375; 99285; 70450; 71260; 80320; 81003; 83735; 84484; 85025; 93010; J1885; J3475; J3490

== ENCOUNTER 2025-03-15 12:25 | Emergency (ER) | payer MEDICAID, SELFPAY ==
[2025-03-15 12:28] VITALS: BP 133/80; PULSE 91; RESP 18; TEMP 36.9; O2SAT 97
--- NOTE | 2025-03-15 12:39 | NUR.NOTE ---
[facility] notified that the patient left. Nursing Note:
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
== END 2025-03-15 13:00 | disposition left against medical advice (07) ==
PROVIDERS: Emergency Provider Emergency Medicine; PCP Nurse Practitioner Family
DX: R45.851 Suicidal ideations (principal); F14.10 Cocaine abuse, uncomplicated; F17.210 Nicotine dependence, cigarettes, uncomplicated; F17.290 Nicotine dependence, other tobacco product, uncomplicated; Z53.29 Procedure and treatment not carried out because of patient's decision for other reasons
CPT/HCPCS: 80053; 99282; 80320; 83735; 85025

== ENCOUNTER 2025-04-10 19:40 | Emergency (ER) | payer MEDICAID, SELFPAY ==
[2025-04-10 19:47] VITALS: BP 144/83; PULSE 121; RESP 16; TEMP 36.7; O2SAT 98
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
== END 2025-04-10 21:26 | disposition home or self-care (01) ==
PROVIDERS: Emergency Provider Physician Assistant; PCP Nurse Practitioner Family
DX: S70.11XA Contusion of right thigh, initial encounter (principal); W34.010A Accidental discharge of airgun, initial encounter
CPT/HCPCS: 73552; 99283

== ENCOUNTER 2025-04-12 19:13 | Emergency (ER) | payer MEDICAID, SELFPAY ==
[2025-04-12 19:31] VITALS: BP 120/70; PULSE 93; RESP 18; TEMP 36.8; O2SAT 99
[2025-04-12 19:38] VITALS: BP 120/70; PULSE 93; RESP 18; TEMP 36.8; O2SAT 99
[2025-04-12 19:52] LABS: Abs Immature Grans 0.06 10^3/uL (0.0-0.06); HCT 40.8 % (40.0-50.0); HGB 13.8 g/dL (13.5-17.5); Immature Grans % 0.4 %; MCH 30.1 pg (27.0-33.0); MCHC 33.8 % (32.0-36.0); MCV 89 fL (80-95); MPV 8.1 fL (8.0-11.0); Platelet Count 288 10^3/uL (130-400); RBC 4.58 10^6/uL (4.36-5.78); RDW 13.1 % (11.8-14.1); RDW-SD 42.6 fL; WBC 13.59 10^3/uL (4.4-10.8)
[2025-04-12] MEDS: Normal Saline - Diluent 50 ML VIAL IJ (20:10)
[2025-04-12] MEDS: Omnipaque 350 MG/ML 100 ML BTL IJ (20:11)
[2025-04-12] MEDS: Normal Saline Flush 10 ML SYR IVP (20:11)
[2025-04-12 20:12] LABS: ALT 26 U/L (16-63); AST 17 U/L (15-37); Albumin 4.0 g/dL (3.4-5.0); Alkaline Phosphatase 63 U/L (46-116); Anion Gap 10.2 mmol/L (3-11); BUN 10 mg/dL (7-18); Bilirubin, Total 0.5 mg/dL (0.2-1.0); CO2 27.8 mmol/L (21.0-32.0); Calcium 8.9 mg/dL (8.5-10.1); Chloride 102 mmol/L (98-107); Estimated GFR 113.32 (mL/min/1.73m2); Glucose 106 mg/dL (74-106); Potassium 3.3 mmol/L (3.5-5.1); Sodium 140 mmol/L (136-145); Total Protein 8.3 g/dL (6.4-8.2)
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
--- NOTE | 2025-04-12 20:25 | DI.CT_ITS ---
Exam(s) CT LOWER EXTREMITY RT W EXAM: CT LOWER EXTREMITY RT W CLINICAL HISTORY: R thigh wound- necrotic. TECHNIQUE: Imaging Protocol: Axial computed tomography images with coronal and sagittal reformatted images were created and reviewed. CONTRAST MATERIAL: Intravenous: Omnipaque 350. Contrast Volume: 100 ML COMPARISON: CT CT LOWER EXTREMITY RT WO from 11/25/2024 FINDINGS: Bones: The osseous structures and articular surfaces are intact. Bony alignment is satisfactory. No cellulitic or osteomyelitic changes are identified. There is no evidence of joint space narrowing or cystic degeneration seen. No lytic or sclerotic lesions are identified. Soft Tissues: There is edema seen in the subcutaneous soft tissues of the posterior lateral distal right thigh and knee. No focal fluid collection is seen to suggest a abscess. There is thickening of the skin in this region suggesting cellulitis. No soft tissue air is seen. The underlying musculature appears uninvolved. Enhancement: No abnormal enhancement is identified. IMPRESSION: 1. Cellulitis involving the posterolateral aspect of the right lower thigh and knee. There is no focal fluid collection to suggest an abscess. 2. No evidence of osteomyelitis. 3. The preliminary [facility] report was reviewed. RADIATION DOSE DELIVERED: 831.11mGy.cm Total DLP 831.11mGy.cm Total DLP DATA REPOSITORY: All CT scans at this facility are submitted to the National Radiology Data Registry (NRDR) Dose Index Registry (DIR) with the [employer] (A[employer]). RADIATION OPTIMIZATION: All CT scans at this facility use at least one of these dose optimization techniques: automated exposure control; mA and/or kV adjustment per patient size (includes targeted exams where dose is matched to clinical indication); or iterative reconstruction.
[2025-04-12] MEDS: ceFAZolin 2 GM/50 ML BAG IVPB (20:30)
[2025-04-12] MEDS: ACETAMINOPHEN 1,000 MG/100 ML BAG 400 MG IVPB (20:33)
[2025-04-12] MEDS: Ketorolac 15 MG/ML VIAL IVP (20:34)
[2025-04-12] MEDS: VANCOMYCIN 1,500 MG in Normal Saline 500 ML 333.3333 MG IVPB (20:52)
--- NOTE | 2025-04-12 21:15 | DI.[facility]_ITS ---
PROCEDURE INFORMATION: Exam: CT Right Lower Extremity With Contrast Exam date and time: 04/12/2025 8:11 PM Age: 44 years old Clinical indication: Right thigh wound - necrotic TECHNIQUE: Imaging protocol: CT of the right lower extremity with intravenous contrast was performed. Contrast material: OMNIPAQUE 350; Contrast volume: 100 ml; Contrast route: INTRAVENOUS (IV); COMPARISON: XR right femur 04/10/2025 FINDINGS: Bones/joints: No focal osseous lesion. No fracture. Soft tissues: Posterior all lateral subcutaneous edema / cellulitis involving the lower right thigh region and the right knee region. No soft tissue air collections. No discrete soft tissue abscess. 17 x 7 x 17 mm right Nunez's cyst. IMPRESSION: Posterior all lateral subcutaneous edema / cellulitis involving the lower right thigh region and the right knee region. No soft tissue air collections. No discrete soft tissue abscess. Dictated and Authenticated by: Jason Marinelli MD. Orderin Violet Michelle MD
[2025-04-12] MEDS: Doxycycline Hyclate 100 MG CAP PO (21:36)
[2025-04-12] MEDS: Cephalexin 500 MG CAP PO (21:36)
[2025-04-12] MEDS: oxyCODONE 5 MG TAB 20 MG PO (21:55)
[2025-04-12 22:35] VITALS: BP 86/55; PULSE 77; RESP 16; TEMP 36.4; O2SAT 96
--- NOTE | 2025-04-13 16:50 | NUR.NOTE ---
Access chart to get the discharge diagnosis and print a demographic sheet for [facility] billing requisition. Nursing Note:
== END 2025-04-12 22:37 | disposition home or self-care (01) ==
PROVIDERS: Emergency Provider Physician Assistant; PCP Nurse Practitioner Family
DX: L03.115 Cellulitis of right lower limb (principal)
CPT/HCPCS: 36415; 80053; 87040; 96365; 96368; 96375; 99285; 73701; 83605; 85025; 99284; J0131; J0690; J1885; J3373; J3490